=== PATIENT | male | born 1960 | race Caucasian/White ===

== ENCOUNTER 2022-07-19 11:50 | Observation (INO) | payer BC, MEDICARE ==
[2022-07-19] MEDS ORDERED: ONDANSETRON 4 MG/2 ML VIAL IVP STA (12:28)
[2022-07-19] MEDS ORDERED: SODIUM CHLORIDE 0.9% 1,000 ML IV STA (12:28)
[2022-07-19 13:00] LABS: Basophils # (A) 0.1 k/uL (0-0.2); Basophils % (A) 1 %; Eosinophils # (A) 0.1 k/uL (0-0.7); Eosinophils % (A) 1 %; HCT 44.5 % (39.0-53.0); HGB 14.6 gm/dL (13.0-17.5); Lymphocytes # (A) 1.2 k/uL (1.0-4.8); Lymphocytes % (A) 13 %; MCH 27.4 pg (25.0-35.0); MCHC 32.9 g/dL (31.0-37.0); MCV 83.3 fL (80.0-100.0); Monocytes # (A) 0.8 k/uL (0-1.0); Monocytes % (A) 9 %; Neutrophils # (A) 6.9 k/uL (1.3-7.7); Neutrophils % (A) 75 %; Platelet Count 324 k/uL (150-450); Poikilocytosis Slight; RBC 5.34 m/uL (4.30-5.90); RDW 15.3 % (11.5-15.5); WBC 9.1 k/uL (3.8-10.6)
[2022-07-19 13:15] LABS: Albumin 3.5 g/dL (3.5-5.0); Total Bilirubin 1.3 mg/dL (0.2-1.3); Total Protein 6.6 g/dL (6.3-8.2)
[2022-07-19 13:27] LABS: INR 1.2 (<1.2); Partial Thromboplastin Time 25.7 sec (22.0-30.0); Prothrombin Time 11.9 sec (9.0-12.0)
--- NOTE | 2022-07-19 13:38 | XR ---
EXAMINATION TYPE: XR chest 2V DATE OF EXAM: 07/19/2022 COMPARISON: NONE HISTORY: Abdominal pain TECHNIQUE: Frontal and lateral views of the chest are obtained. FINDINGS: The heart is mildly enlarged. There is no pulmonary vascular congestion. There is fullness of the right hilum. Lungs are clear. No pneumothorax. Degenerative changes of the spine without acut e osseous abnormalities. IMPRESSION: Fullness of the right hilum. Suggest CT chest for further evaluation.
--- NOTE | 2022-07-19 13:42 | ED ---
Abdominal Pain HPI - General Chief Complaint: Abdominal Pain Stated Complaint: weakness Time Seen by Provider: 07/19/22 12:10 Source: patient Mode of arrival: ambulatory Limitations: no limitations - History of Present Illness Initial Comments: 61-year-old male presents to the emergency department with bilateral flank pain, nausea and vomiting. Patient was at [facility] on the with similar complaints. Symptoms were present for 2 days. He also had urinary frequency and dark colored urine. Labs were conducted and patient had a cr eatinine of 1.3. Patient had no bacteria in his urine however a CT demonstrated concerning signs for cystitis. He was started on Rocephin patient was discharged home on Keflex and tramadol. He states that he awoke this morning and took one of the tramadol. Afterwards patient began having intense nausea with retching. He felt diaphoretic and had intense pain in his bilateral flanks. Patient felt confused. He called EMS who brought the patient into emergency department for further evaluation. There is concern for possible medication side effect. He denies any chest pain. Does admit to some shortness of breath. He has the bilateral flank pain. States that he is producing urine normally. No current hematuria. He does have chronic kidney disease and follows with a drosophere operator out of [facility]. No other alleviating, precipitating or modifying factors - Related Data Home Medications Medication Instructions Recorded Confirmed Atorvastatin [Lipitor] 40 mg PO DAILY 07/19/22 07/19/22 Cephalexin [Keflex] 500 mg PO QID 07/19/22 07/19/22 Clopidogrel [Plavix] 75 mg PO DAILY 07/19/22 07/19/22 Furosemide [Lasix] 40 mg PO DAILY 07/19/22 07/19/22 Insulin Aspart [NovoLOG Flexpen] 20 units SQ AC-TID 07/19/22 07/19/22 Insulin Glargine,Hum.rec.anlog 34 units SQ DAILY 07/19/22 07/19/22 [Lantus Solostar Pen] NIFEdipine [Adalat CC] 90 mg PO DAILY 07/19/22 07/19/22 lisinopriL [Zestril] 40 mg PO DAILY 07/19/22 07/19/22 Allergies Allergy/AdvReac Type Severity Reaction Status Date / Time erythromycin base AdvReac Nausea & Verified 07/19/22 12:53 Vomiting hydromorphone [From Dilaudid] AdvReac Nausea & Verified 07/19/22 12:53 Vomiting morphine AdvReac Nausea & Verified 07/19/22 12:53 Vomiting Review of Systems ROS Statement: Those systems with pertinent positive or pertinent negative responses have been documented in the HPI. ROS Other: All systems not noted in ROS Statement are negative. Past Medical History Past Medical History: Coronary Artery Disease (CAD), Heart Failure Past Surgical History: Heart Catheterization With Stent Past Psychological History: No Psychological Hx Reported Smoking Status: Never smoker Past Alcohol Use History: None Reported Past Drug Use History: None Reported General Exam Limitations: no limitations Course Vital Signs 07/19/22 07/19/22 07/19/22 13:12 17:00 17:25 Pulse Rate 74 Respiratory 18 18 Rate Blood Pressure 100/60 128/88 O2 Sat by Pulse 89 L 95 Oximetry 07/19/22 19:48 Pulse Rate 80 Respiratory 18 Rate Blood Pressure 125/86 O2 Sat by Pulse 96 Oximetry Medical Decision Making - Medical Decision Making Was pt. sent in by a medical professional or institution? @ -No Did you speak to anyone other than the patient for history? @ -MS Did you review nursing and triage notes? @ -I reviewed the patient's nursing notes and I agree Were old charts reviewed? @ -[outside hosp., previous admissions, EMS record, old EKG, old radiological studies, urgent care reports/EKGs, senior living records?] Differential Diagnosis? @ -[chest pain, altered mental status abdominal pain women, abdominal pain men, vaginal bleeding, weakness, fever, dyspnea, syncope, headache, dizziness, GI bleed, back pain, seizure] EKG interpreted by me (3pts min.)? @ -[none] X-rays interpreted by me (1pt min.)? @ -[none] CT interpreted by me (1pt min.)? @ -[none] U/S interpreted by me (1pt. min.)? @ -[none] What testing was considered but not performed? (CT, X-rays, U/S, labs)? Why? @ [CT, X-rays, U/S, labs? Why?] What meds were considered but not given? Why? @ -[none] Did you discuss the management of the patient with other professionals? @ -[professionals i.e. Dr, PA, ASSOCIATE EDITOR, Lab, RT, Psych Nurse, Assistant Professor Of Sociology, Geothermal Heat Pump Machinist, Teacher, Range Technician, dependency case manager? Give summary] Did you reconcile home meds? @ -[none] Was smoking cessation discussed for >3mins.? @ -[none] Was critical care preformed (if so, how long)? @ -[none] Were there social determinants of health that impacted care today? How? (Homelessness, low income, unemployed, alcoholism, drug addiction, transportation, low edu. Level, literacy, decrease access to med. care, detention, rehab)? @ -[Homelessness, low income, unemployed, alcoholism, drug addiction, transportation, low edu. Level, literacy, decrease access to med. care, detention, rehab?] Was there de-escalation of care discussed even if they declined? (Discuss DNR or withdrawal of care, Hospice)? @ -[Discuss DNR or withdrawal of care, Hospice?] What co-morbidities impacted this encounter? (DM, HTN, Smoking, COPD, CAD, Cancer, CVA, Hep., AIDS, mental health diagnosis, sleep apnea, morbid obesity)? @ -[DM, HTN, Smoking, COPD, CAD, Cancer, CVA, Hep., AIDS, mental health diagnosis, sleep apnea, morbid obesity?] Was patient admitted / discharged? Upon arrival patient was placed into room 8. History and physical exam was performed. IV access was established and the nivia ent was given a liter bolus of normal saline. He is given 4 mg of Zofran for nausea. Laboratory studies are conducted and reviewed. Lactic acid of 2.9. Creatinine is 1.37. This is at the patient's baseline. Urinalysis demonstrates no bacteria. CT is performed which demonstrates thickening of the bladder. Bilateral renal cysts. I did perform a chest x-ray due to the reported shortness of breath which demonstrates right hilar fullness. CT is performed which demonstrates ascending aortic aneurysm measuring 4.3 cm. Patient is made aware of the findings. I did feel that the patient was stable for discharge however he reports that he does not feel comfortable going home due to the extr chucho nature of his symptoms. He is requesting overnight observation. I did call and discuss the case with Dr. Mendiola. Does state that the patient is stable for discharge however if he is uncomfortable with symptoms they will obstipation overnight. I did inform the patient of this. He feels more comfortable saying hospitalized overnight. Informed him that he would be given IV fluids. Patient understood. Admission orders placed for the floor Undiagnosed new problem with uncertain prognosis? @ -[none] Drug Therapy requiring intensive monitoring for toxicity (Heparin, Nitro, Insulin, Cardizem)? @ -[none] Were any procedures done? @ -[none] Diagnosis/symptom? @ -[default] Acute, or Chronic, or Acute on Chronic? @ -[default] Uncomplicated (without systemic symptoms) or Complicated (systemic symptoms)? @ -[default] Side effects of treatment? @ -[none] Exacerbation, Progression, or Severe Exacerbation] @ -[no] Poses a threat to life or bodily function? @ -[no] - Lab Data Result diagrams: 07/19/22 12:53 07/19/22 12:53 Lab Results 07/19/22 07/19/22 07/19/22 Range/Units 12:53 12:53 12:53 WBC 9.1 (3.8-10.6) k/uL RBC 5.34 (4.30-5.90) m/uL Hgb 14.6 (13.0-17.5) gm/dL Hct 44.5 (39.0-53.0) % MCV 83.3 (80.0-100.0) fL MCH 27.4 (25.0-35.0) pg MCHC 32.9 (31.0-37.0) g/dL RDW 15.3 (11.5-15.5) % Plt Count 324 (150-450) k/uL MPV 9.0 Neutrophils % 75 % Lymphocytes % 13 % Monocytes % 9 % Eosinophils % 1 % Basophils % 1 % Neutrophils # 6.9 (1.3-7.7) k/uL Lymphocytes # 1.2 (1.0-4.8) k/uL Monocytes # 0.8 (0-1.0) k/uL Eosinophils # 0.1 (0-0.7) k/uL Basophils # 0.1 (0-0.2) k/uL Poikilocytosis Slight PT 11.9 (9.0-12.0) sec INR 1.2 H (<1.2) APTT 25.7 (22.0-30.0) sec Sodium 138 (137-145) mmol/L Potassium 3.0 L (3.5-5.1) mmol/L Chloride 101 (98-107) mmol/L Carbon Dioxide 29 (22-30) mmol/L Anion Gap 8 mmol/L BUN 16 (9-20) mg/dL Creatinine 1.37 H (0.66-1.25) mg/dL Est GFR (CKD-EPI)AfAm 64 (>60 ml/min/1.73 sqM) Est GFR (CKD-EPI)NonAf 55 (>60 ml/min/1.73 sqM) Glucose 134 H (74-99) mg/dL Lactic Ac Sepsis Rflx Plasma Lactic Acid Davin (0.7-2.0) mmol/L Calcium 8.0 L (8.4-10.2) mg/dL Total Bilirubin 1.3 (0.2-1.3) mg/dL AST 30 (17-59) U/L ALT 22 (4-49) U/L Alkaline Phosphatase 86 (38-126) U/L Troponin I (0.000-0.034) ng/mL Total Protein 6.6 (6.3-8.2) g/dL Albumin 3.5 (3.5-5.0) g/dL Lipase 70 (23-300) U/L 07/19/22 07/19/22 07/19/22 Range/Units 12:53 12:53 13:22 WBC (3.8-10.6) k/uL RBC (4.30-5.90) m/uL Hgb (13.0-17.5) gm/dL Hct (39.0-53.0) % MCV (80.0-100.0) fL MCH (25.0-35.0) pg MCHC (31.0-37.0) g/dL RDW (11.5-15.5) % Plt Count (150-450) k/uL MPV Neutrophils % % Lymphocytes % % Monocytes % % Eosinophils % % Basophils % % Neutrophils # (1.3-7.7) k/uL Lymphocytes # (1.0-4.8) k/uL Monocytes # (0-1.0) k/uL Eosinophils # (0-0.7) k/uL Basophils # (0-0.2) k/uL Poikilocytosis PT (9.0-12.0) sec INR (<1.2) APTT (22.0-30.0) sec Sodium (137-145) mmol/L Potassium (3.5-5.1) mmol/L Chloride (98-107) mmol/L Carbon Dioxide (22-30) mmol/L Anion Gap mmol/L BUN (9-20) mg/dL Creatinine (0.66-1.25) mg/dL Est GFR (CKD-EPI)AfAm (>60 ml/min/1.73 sqM) Est GFR (CKD-EPI)NonAf (>60 ml/min/1.73 sqM) Glucose (74-99) mg/dL Lactic Ac Sepsis Rflx Y Plasma Lactic Acid Davin 2.9 H* (0.7-2.0) mmol/L Calcium (8.4-10.2) mg/dL Total Bilirubin (0.2-1.3) mg/dL AST (17-59) U/L ALT (4-49) U/L Alkaline Phosphatase (38-126) U/L Troponin I 0.030 (0.000-0.034) ng/mL Total Protein (6.3-8.2) g/dL Albumin (3.5-5.0) g/dL Lipase (23-300) U/L - EKG Data EKG Comments: EKG demonstrates questionable A. fib with a rate of 84. QRS 183. QTC 469. There is a right bundle branch block. Baseline artifact Disposition Clinical Impression: Nausea and vomiting, Medication side effect, Flank pain Disposition: ADMITTED IP TO THIS [facility] Condition: Stable Is patient prescribed a controlled substance at d/c from ED?: No Time of Disposition: 16:51 Decision to Admit Reason: Admit from EC Decision Date: 07/19/22 Decision Time: 16:51
--- NOTE | 2022-07-19 14:12 | CT ---
EXAMINATION TYPE: CT abdomen pelvis wo con CT DLP: 1617.3 mGycm, Automated exposure control for dose reduction was used. DATE OF EXAM: 07/19/2022 1:47 PM COMPARISON: None CLINICAL INDICATION:Male, 61 years old with history of abdominal pain; Abdominal pain and weakness TECHNIQUE: Standard CT of the abdomen and pelvis without IV or oral contrast. Lack of IV or oral co ntrast limits evaluation of solid and hollow organ viscera. Coronal and sagittal reformats were perfo rmed. FINDINGS: LOWER CHEST: Posterior dependent subsegmental atelectasis is noted. Mild cardiomegaly. No pericardial effusion. Coronary arterial calcifications. ABDOMEN LIVER: Diffusely hypoattenuating parenchyma. GALLBLADDER AND BILE DUCTS: The gallbladder is surgically absent. No biliary ductal dilatation. PANCREAS: Unremarkable noncontrast appearance. SPLEEN: Unremarkable noncontrast appearance. ADRENAL GLANDS: Unremarkable noncontrast appearance.. KIDNEYS AND URETERS: No hydronephrosis or renal calculi. Bilateral renal cysts with largest in the ri ght kidney measuring up to 8.8 cm and largest in the left kidney measuring up to 6.2 cm. PELVIS BLADDER: Underdistended with wall thickening and surrounding fat stranding. REPRODUCTIVE: Unremarkable. ABDOMEN & PELVIS STOMACH AND BOWEL: Small hiatal hernia, duodenum is unremarkable. No focal wall thickening or surroun ding inflammatory changes. The appendix is not visualized however there is no significant inflammator y changes within the right lower quadrant. Distal colonic diverticulosis without evidence for acute d iverticulitis. No evidence of bowel obstruction. PERITONEUM: No evidence of pneumoperitoneum or free fluid. VASCULATURE: Mild atherosclerotic calcifications are present throughout the abdominal aorta and its b ranches. No evidence of aortic aneurysm. MUSCULOSKELETAL: No acute osseous abnormalities. Mild disc degeneration changes are present throughou t the thoracolumbar spine. LYMPH NODES: No gross evidence for lymphadenopathy. SOFT TISSUE/ABDOMINAL WALL: Left fat filled inguinal hernia. Hyperdense foci within the anterior abdo moisés wall subcutaneous tissues likely from medication injections. IMPRESSION: 1. Underdistended urinary bladder with wall thickening and surrounding inflammatory changes. Correlat e with urinalysis for cystitis. 2. Colonic diverticulosis without evidence for acute diverticulitis. 3. Bilateral renal cysts. 4. Hepatic steatosis.
[2022-07-19] MEDS ORDERED: POTASSIUM CHLORIDE ER 20 MEQ TAB.ER PO STA (14:21)
--- NOTE | 2022-07-19 15:30 | CT ---
EXAMINATION TYPE: CT chest wo con CT DLP: 875.1 mGycm, Automated exposure control for dose reduction was used. DATE OF EXAM: 07/19/2022 3:17 PM COMPARISON: . Chest radiograph from same day. CLINICAL INDICATION:Male, 61 years old with history of abnormal chest x-ray; PHH, abnormal chest xray TECHNIQUE: Multiple axial images were obtained through the chest without IV contrast. Lack of IV or o ral contrast limits evaluation of solid and hollow organ viscera. FINDINGS: LUNGS/ PLEURA: Bibasilar posterior dependence of subsegmental atelectasis. No focal consolidation, pn eumothorax, or pleural effusion. No suspicious pulmonary nodule or mass. AIRWAY: Patent and unremarkable.. HEART: Moderately enlarged. No pericardial effusion. Coronary artery calcifications and/or stents. MEDIASTINUM: No gross evidence of adenopathy. VASCULATURE: Ascending aortic aneurysm measuring up to 4.3 cm. Dilation of the main pulmonary artery measuring up to 4.6 cm consistent with pulmonary arterial hypertension. MUSCULOSKELETAL: Mild disc degeneration changes are present throughout the thoracolumbar spine. No ac ismael osseous abnormality. No aggressive osseous lesion. SOFT TISSUES/LYMPH NODES: Unremarkable. LOWER NECK: No significant findings. UPPER ABDOMEN: Please refer to dedicated CT abdomen and pelvis of same day for findings. IMPRESSION: 1. No acute thoracic process. 2. Ascending aortic aneurysm measuring up to 4.3 cm. 3. Moderate cardiomegaly. No pericardial effusion.
[2022-07-19] MEDS ORDERED: NALOXONE 0.4 MG/ML 1 ML VIAL IV PRN (16:52)
[2022-07-19] MEDS ORDERED: ONDANSETRON 4 MG/2 ML VIAL IVP PRN (16:52)
[2022-07-19] MEDS: SODIUM CHLORIDE 0.9% 1,000 ML IV SCH (18:34)
[2022-07-19 18:56] LABS: Amorphous Sediment,Urine Rare /hpf; Appearance,Urine Cloudy (Clear); Bilirubin,Urine Negative (Negative); Blood,Urine Negative (Negative); Color,Urine Yellow; Glucose,Urine (UA) Trace (Negative); Hyaline Casts,Urine 1 /lpf (0-2); Ketones,Urine Negative (Negative); Leukocyte Esterase,Urine Negative (Negative); Mucus,Urine Occasional /hpf; Nitrite,Urine Negative (Negative); Protein,Urine 2+ (Negative); RBC,Urine 2 /hpf (0-5); Specific Gravity,Urine 1.014 (1.001-1.035); Squamous Epithelial Cell,Urine 1 /hpf (0-4); Urobilinogen,Urine <2.0 mg/dL (<2.0); WBC,Urine 5 /hpf (0-5)
[2022-07-20] MEDS: SODIUM CHLORIDE 0.9% 1,000 ML IV SCH (01:25)
[2022-07-20 03:43] LABS: Glucose,Whole Blood 109 mg/dL (70-110)
[2022-07-20 03:48] VITALS: BP 148/99; PULSE 85
[2022-07-20 06:07] VITALS: RESP 16
[2022-07-20] MEDS ORDERED: NIFEdipine XL 90 MG TAB.ER.24 PO SCH (09:00)
[2022-07-20] MEDS ORDERED: CLOPIDOGREL 75 MG TAB PO SCH (09:00)
[2022-07-20] MEDS ORDERED: lisinopriL 20 MG TAB PO SCH (09:00)
[2022-07-20] MEDS ORDERED: FUROSEMIDE 40 MG TAB PO SCH (09:00)
[2022-07-20] MEDS ORDERED: ATORVASTATIN 40 MG TAB PO SCH (09:00)
[2022-07-20 10:03] LABS: Basophils # (A) 0.09 X 10*3/uL (0.00-0.10); Eosinophils % (A) 2.2 %; HCT 44.6 % (39.6-50.0); HGB 13.8 g/dL (13.0-17.0); Immature Grans, Automated 0.3 %; Lymphocytes # (A) 1.36 X 10*3/uL (0.90-5.00); Lymphocytes % (A) 15.2 %; MCHC 30.9 g/dL (32.0-37.0); MCV 87.1 fL (80.0-97.0); Mean Platelet Volume 11.2 fL (9.5-12.2); Monocytes # (A) 1.15 X 10*3/uL (0.20-1.00); Monocytes % (A) 12.8 %; NRBC Per 100 WBC 0 /100 WBCS (0.0-0.0); Neutrophils # (A) 6.12 X 10*3/uL (1.80-7.70); Neutrophils % (A) 68.5 %; Platelet Count 284 X 10*3/uL (140-440); RBC 5.12 X 10*6/uL (4.40-5.60); RDW 15.2 % (11.5-14.5); WBC 8.95 X 10*3/uL (4.50-10.00)
[2022-07-20 10:24] LABS: Anion Gap 14.4 mmol/L (10.00-18.00); BUN/Creat Ratio 11.93 Ratio (12.00-20.00); Blood Urea Nitrogen 17.9 mg/dL (9.0-27.0); Calcium 8.3 mg/dL (8.7-10.3); Carbon Dioxide 26.6 mmol/L (20.0-27.5); Non-African American GFR(CKD) 49.2 (60.0-200.0); Potassium 3.3 mmol/L (3.5-5.5)
[2022-07-20] MEDS ORDERED: INSULIN ASPART (NovoLOG) 100 UNIT/ML VIAL SQ SCH (12:30)
--- NOTE | 2022-07-20 15:46 | P.HPIM ---
History of Present Illness H&P Date: 07/20/22 Chief Complaint: Visual changes, abdominal pain 61-year-old man who recently was hospitalized for kidney stone which spontaneously passed, CAD, heart failure with unknown ejection fraction, hypertension, hyperlipidemia, diabetes presented with nausea, vomiting, bilateral flank pain, visual changes. Patient says that he was seen for similar symptoms and was prescribed antibiotics for cystitis after passing a kidney stone as well as tramadol when necessary for pain control. Patient says that yesterday when he took a dose of tramadol, he woke up 30 minutes after taking a nap and found that he had significant visual changes like "turquoise and Gold across his eyes". He also continue to have nausea, vomiting, bilateral flank pain. For this reason he came to the emergency room for further evaluation. He denies fevers, chills, nausea or chest pain, palpitations, syncope, presyncope, cough, dyspnea, abdominal pain, constipation, diarrhea, dysuria, numbness/weakness of extremities. In the emergency room, patient was afebrile, 128/88, heart rate 74, 89% on room air. CBC was unremarkable. Chemistries are unremarkable. UA showed 2+ protein, trace glucose, rare sediment, occasional mucus, otherwise unremarkable. CT of the abdomen/pelvis showed underdistended urinary bladder with wall thickening and surrounding inflammatory changes consistent with cystitis, colonic diverticulosis without inflammation. Chest CT showed no acute thoracic process, and ascending aortic aneurysm measuring 4.3 cm, moderate cardiomegaly without pericardial effusion. Chest x-ray showed fullness of the right hilum. EKG showed atrial fibrillation with right bundle branch block. Case was discussed with emergency room physician who felt the patient warranted observation for pain control. All Systems reviewed and pertinent positives and negatives noted in HPI, all other symptoms are negative Gen: in no apparent distress, resting comfortably in bed Eyes: PERRL, no scleral injection or icterus HENT: normocephalic, atraumatic, good hearing acuity, moist mucous membranes Neck: no tracheal deviation, full range of motion Resp: good air exchange, breathing comfortably with no accessory muscle use, no tactile fremitus, clear to auscultation bilaterally CVS: good distal perfusion x 4, no pitting edema, regular rate and rhythm without murmurs GI: soft, NTTP, ND, no hepatosplenomegaly : no suprapubic tenderness, no CVAT, queen catheter not present MSK: no clubbing, no cyanosis, no noted contractures of extremities Skin: no noted rashes, petechiae; temperature of skin is appropriate Neuro: moving all extremities without signs of weakness, CN II-XII intact Psych: cooperative, euthymic mood, insight and judgment intact Labs and imaging as above Assessment/plan: Cystitis Nausea and vomiting Bilateral flank pain Visual changes -Continue home antibiotics of cephalexin -Discontinue tramadol, likely side effect causing visual changes -Tylenol when necessary at home -Follow up with primary care provider Hypertension Hyperlipidemia Diabetes type 2 -Continue home medications She has full code DVT prophylaxis is deferred due to patient's observation status and ability to ambulate freely Past Medical History Past Medical History: Coronary Artery Disease (CAD), Heart Failure Past Surgical History: Heart Catheterization With Stent Past Psychological History: No Psychological Hx Reported Smoking Status: Never smoker Past Alcohol Use History: None Reported Past Drug Use History: None Reported Medications and Allergies Home Medications Medication Instructions Recorded Confirmed Type Atorvastatin [Lipitor] 40 mg PO DAILY 07/19/22 07/19/22 History Cephalexin [Keflex] 500 mg PO QID 07/19/22 07/19/22 History Clopidogrel [Plavix] 75 mg PO DAILY 07/19/22 07/19/22 History Furosemide [Lasix] 40 mg PO DAILY 07/19/22 07/19/22 History Insulin Aspart [NovoLOG Flexpen] 20 units SQ AC-TID 07/19/22 07/19/22 History Insulin Glargine,Hum.rec.anlog 34 units SQ DAILY 07/19/22 07/19/22 History [Lantus Solostar Pen] NIFEdipine [Adalat CC] 90 mg PO DAILY 07/19/22 07/19/22 History lisinopriL [Zestril] 40 mg PO DAILY 07/19/22 07/19/22 History Acetaminophen Tab [Tylenol Tab] 1,000 mg PO Q6HR #30 tablet 07/20/22 Rx Allergies Allergy/AdvReac Type Severity Reaction Status Date / Time erythromycin base AdvReac Nausea & Verified 07/19/22 12:53 Vomiting hydromorphone [From Dilaudid] AdvReac Nausea & Verified 07/19/22 12:53 Vomiting morphine AdvReac Nausea & Verified 07/19/22 12:53 Vomiting Physical Exam Osteopathic Statement: *. No significant issues noted on an osteopathic structural exam other than those noted in the History and Physical/Consult. Vitals: Vital Signs Pulse Resp BP Pulse Ox 07/20/22 06:00 16 94 L 07/20/22 05:30 148/99 90 L 07/20/22 05:00 148/99 86 L 07/20/22 04:30 148/99 91 L 07/20/22 04:00 148/99 87 L 07/20/22 03:47 85 14 148/99 97 07/20/22 03:30 125/86 07/20/22 03:00 125/86 07/20/22 02:30 125/86 07/20/22 02:00 125/86 07/20/22 01:30 125/86 07/20/22 01:00 125/86 07/20/22 00:30 125/86 07/20/22 00:00 125/86 07/19/22 23:30 125/86 07/19/22 23:26 86 18 125/86 95 07/19/22 23:00 125/86 07/19/22 22:30 125/86 07/19/22 22:00 125/86 07/19/22 21:30 125/86 07/19/22 21:00 125/86 07/19/22 20:30 125/86 07/19/22 20:00 125/86 07/19/22 19:48 80 18 125/86 96 07/19/22 19:30 125/86 07/19/22 19:00 128/88 07/19/22 18:30 128/88 07/19/22 18:00 128/88 07/19/22 17:30 128/88 07/19/22 17:25 95 07/19/22 17:00 74 18 128/88 89 L Results CBC & Chem 7: 07/20/22 05:22 07/20/22 05:22 Labs: Abnormal Lab Results - Last 24 Hours (Table) 07/19/22 07/20/22 07/20/22 Range/Units 18:39 05:22 05:22 MCHC 30.9 L (32.0-37.0) g/dL RDW 15.2 H (11.5-14.5) % Monocytes # 1.15 H (0.20-1.00) X 10*3/uL Potassium 3.3 L (3.5-5.5) mmol/L Est GFR (CKD-EPI)AfAm 57.0 L (60.0-200.0) Est GFR (CKD-EPI)NonAf 49.2 L (60.0-200.0) BUN/Creatinine Ratio 11.93 L (12.00-20.00) Ratio Glucose 121 H (70-110) mg/dL Calcium 8.3 L (8.7-10.3) mg/dL Urine Protein 2+ H (Negative) Urine Glucose (UA) Trace H (Negative) Amorphous Sediment Rare H (None) /hpf Urine Mucus Occasional H (None) /hpf
--- NOTE | 2022-07-20 16:36 | P.DS ---
Providers Date of admission: 07/19/22 16:52 Expected date of discharge: 07/20/22 Attending physician: Juve Mendiola MD Primary care physician: Physician Nonstaff Hospital Course: Cystitis Nausea and vomiting Bilateral flank pain Visual changes Hypertension Hyperlipidemia Diabetes type 2 61-year-old man who recently was hospitalized for kidney stone which spontaneously passed, CAD, heart failure with unknown ejection fraction, hyper tension, hyperlipidemia, diabetes presented with nausea, vomiting, bilateral flank pain, visual changes. In the emergency room, patient was afebrile, 128/88, heart rate 74, 89% on room air. CBC was unremarkable. Chemistries are unremarkable. UA showed 2+ protein, trace glucose, rare sediment, occasional mucus, otherwise unremarkable. CT of the abdomen/pelvis showed underdistended urinary bladder with wall thickening and surrounding inflammatory changes consistent with cystitis, colonic diverticulosis without inflammation. Chest CT showed no acute thoracic process, and ascending aortic aneurysm measuring 4.3 cm, moderate cardiomegaly without pericardial effusion. Chest x-ray showed fullness of the right hilum. EKG showed atrial fibrillation with right bundle branch block. Case was discussed with emergency room physician who felt the patient warranted observation for pain control. Patient was doing well at the time of my evaluation. He requested discharge home. I advised that he discontinue tramadol because this was likely causing his side effect of visual changes. I advised him total dosing of Tylenol per day to be 4 g split into 4 doses every 6 hours for a total of 7 days, then 2 g total per day split into 4 doses every 6 hours as needed for pain control. Patient will follow-up with primary care doctor. Gen: in no apparent distress, resting comfortably in bed Eyes: PERRL, no scleral injection or icterus HENT: normocephalic, atraumatic, good hearing acuity, moist mucous membranes Neck: no tracheal deviation, full range of motion Resp: good air exchange, breathing comfortably with no accessory muscle use, no tactile fremitus, clear to auscultation bilaterally CVS: good distal perfusion x 4, no pitting edema, regular rate and rhythm without murmurs GI: soft, NTTP, ND, no hepatosplenomegaly : no suprapubic tenderness, no CVAT, queen catheter not present MSK: no clubbing, no cyanosis, no noted contractures of extremities Skin: no noted rashes, petechiae; temperature of skin is appropriate Neuro: moving all extremities without signs of weakness, CN II-XII intact Psych: cooperative, euthymic mood, insight and judgment intact Patient Condition at Discharge: Good Plan - Discharge Summary New Discharge Prescriptions: New Acetaminophen Tab [Tylenol Tab] 1,000 mg PO Q6HR #30 tablet Continue NIFEdipine [Adalat CC] 90 mg PO DAILY Clopidogrel [Plavix] 75 mg PO DAILY Atorvastatin [Lipitor] 40 mg PO DAILY Insulin Aspart [NovoLOG Flexpen] 20 units SQ AC-TID Insulin Glargine,Hum.rec.anlog [Lantus Solostar Pen] 34 units SQ DAILY lisinopriL [Zestril] 40 mg PO DAILY Furosemide [Lasix] 40 mg PO DAILY Cephalexin [Keflex] 500 mg PO QID Discharge Medication List Atorvastatin [Lipitor] 40 mg PO DAILY 07/19/22 [History] Cephalexin [Keflex] 500 mg PO QID 07/19/22 [History] Clopidogrel [Plavix] 75 mg PO DAILY 07/19/22 [History] Furosemide [Lasix] 40 mg PO DAILY 07/19/22 [History] Insulin Aspart [NovoLOG Flexpen] 20 units SQ AC-TID 07/19/22 [History] Insulin Glargine,Hum.rec.anlog [Lantus Solostar Pen] 34 units SQ DAILY 07/19/22 [History] NIFEdipine [Adalat CC] 90 mg PO DAILY 07/19/22 [History] lisinopriL [Zestril] 40 mg PO DAILY 07/19/22 [History] Acetaminophen Tab [Tylenol Tab] 1,000 mg PO Q6HR #30 tablet 07/20/22 [Rx] Follow up Appointment(s)/Referral(s): Nonstaff,Physician [Primary Care Provider] - 1-2 days Patient Instructions/Handouts: Acute Abdominal Pain (ED) Activity/Diet/Wound Care/Special Instructions: As discussed, you can use Tylenol 1000mg four times daily as needed for pain for up to one week, after that, you can use 500mg four times daily as needed for pain Discontinue use of tramadol, continue and complete course of cephalexin Discharge Disposition: HOME SELF-CARE
== END 2022-07-20 10:54 | disposition home or self-care (01) ==
LOC: EC 11:50 → 6NMEDSUR 16:52
PROVIDERS: ADMIT Student in an Organized Health Care Education/Training Program; ATTEND Student in an Organized Health Care Education/Training Program
DX: N30.90 Cystitis, unspecified without hematuria (principal); R11.2 Nausea with vomiting, unspecified; I13.0 Hypertensive heart and chronic kidney disease with heart failure and stage 1 through stage 4 chronic kidney disease, or unspecified chronic kidney disease; N18.9 Chronic kidney disease, unspecified; I50.9 Heart failure, unspecified; I25.10 Atherosclerotic heart disease of native coronary artery without angina pectoris; E78.5 Hyperlipidemia, unspecified; E11.22 Type 2 diabetes mellitus with diabetic chronic kidney disease; Z95.5 Presence of coronary angioplasty implant and graft; Z79.4 Long term (current) use of insulin; Z79.02 Long term (current) use of antithrombotics/antiplatelets; Z79.899 Other long term (current) drug therapy; Z88.1 Allergy status to other antibiotic agents; Z88.5 Allergy status to narcotic agent; Z88.6 Allergy status to analgesic agent
CPT/HCPCS: 96361 ×2; 96374; 99285; 36415; 93005; 80053; 80048; 83605; 83690; 84484; 85025 ×2; 85610; 85730; 81001; 71046; 71250; 74176; G0378 ×3; J2405

== ENCOUNTER 2023-10-25 23:27 | Inpatient (IN) | payer MEDICARE ==
--- NOTE | 2023-10-25 23:45 | ED ---
General Adult HPI <SethRomie - Last Filed: 10/25/23 23:46> <Gene Arellano - Last Filed: 10/26/23 05:54> - General Stated complaint: Abdominal Swelling, CHF, Chronic Kidney Disease Time Seen by Provider: 10/25/23 23:39 - History of Present Illness Initial comments: 63-year-old male with past medical history significant for CHF presenting to the ED with complaints of dyspnea. Patient reports over the past week has had increasing generalized swelling of his lower extremity progressively working its way up to his abdomen. Now reports over the past few days has had dyspnea especially with exertion. Denies chest pain. (Romie Ann) Patient is a 63-year-old male who presents emergency department for increased shortness of breath, lower extremity swelling, abdominal swelling. Has been ongoing for multiple weeks. Has a history of CAD and heart failure. Has been compliant with medications. Presents for further evaluation at this time. Denies any significant productive cough. Does endorse lower extremity swelling as well as the swelling of his abdomen. Denies nausea or vomiting or diarrhea. No abdominal pain. Does not endorse significant orthopnea. Denies any PND. Resents for further evaluation at this time. Endorses exertional dyspnea. Originally evaluated as a quick note. I evaluated him when he was placed in a room. (Gene Arellano) - Related Data Home Medications Medication Instructions Recorded Confirmed Atorvastatin [Lipitor] 40 mg PO DAILY 07/19/22 07/19/22 Cephalexin [Keflex] 500 mg PO QID 07/19/22 07/19/22 Clopidogrel [Plavix] 75 mg PO DAILY 07/19/22 07/19/22 Furosemide [Lasix] 40 mg PO DAILY 07/19/22 07/19/22 Insulin Aspart [NovoLOG Flexpen] 20 units SQ AC-TID 07/19/22 07/19/22 Insulin Glargine,Hum.rec.anlog 34 units SQ DAILY 07/19/22 07/19/22 [Lantus Solostar Pen] NIFEdipine [Adalat CC] 90 mg PO DAILY 07/19/22 07/19/22 lisinopriL [Zestril] 40 mg PO DAILY 07/19/22 07/19/22 Previous Rx's Medication Instructions Recorded Acetaminophen Tab [Tylenol Tab] 1,000 mg PO Q6HR #30 tablet 07/20/22 Allergies Allergy/AdvReac Type Severity Reaction Status Date / Time tramadol Allergy Hallucinati Verified 10/26/23 00:30 ons erythromycin base AdvReac Nausea & Verified 10/26/23 00:30 Vomiting hydromorphone [From Dilaudid] AdvReac Nausea & Verified 10/26/23 00:30 Vomiting morphine AdvReac Nausea & Verified 10/26/23 00:30 Vomiting Review of Systems ROS Other: All systems not noted in ROS Statement are negative. <Romie Ann - Last Filed: 10/25/23 23:46> ROS Other: All systems not noted in ROS Statement are negative. <Gene Arellano - Last Filed: 10/26/23 05:54> ROS Statement: Those systems with pertinent positive or pertinent negative responses have been documented in the HPI. Review of Systems: CONST: Denies fever EYES: Denies blurry vision ENT: Denies nasal congestion C/V: Denies Chest pain RESP: Endorses shortness of breath GI: Denies abdominal pain : Denies dysuria SKIN: Denies rash. MSK: Denies joint pain. NEURO: Denies headache (Gene Arellano) Past Medical History Past Medical History: Coronary Artery Disease (CAD), Heart Failure Past Surgical History: Heart Catheterization With Stent Past Psychological History: No Psychological Hx Reported Smoking Status: Never smoker Past Alcohol Use History: None Reported Past Drug Use History: None Reported <Romie Ann - Last Filed: 10/25/23 23:46> General Exam <Romie Ann - Last Filed: 10/25/23 23:46> <Gene Arellano - Last Filed: 10/26/23 05:54> - General Exam Comments Initial Comments: Visual Physical Exam Vital signs reviewed General: Well-appearing, nontoxic, no acute distress. Head: Normocephalic, atraumatic Eyes: PERRLA, EOMI ENT: Airway patent Chest: Nonlabored breathing Skin: No visual rash, normal skin tone Neuro: Alert and oriented 3 Musculoskeletal: No gross abnormalities (Romie Ann) General: Appears in no acute distress. HEAD: Normal with no signs of head trauma. EYES: PERRLA, EOMI, conjunctiva normal, no discharge. ENT: Hearing grossly intact, normal oropharynx. RESPIRATORY: Coarse breath sounds at the lung bases. No hypoxia that is significant. No significant increased work of breathing. No wheezing. C/V: Irregular r rate and rhythm. S1 and S2 auscultated, significant symmetrical bilateral pitting edema of the legs, peripheral pulses 2+ and intact throughout ABD: Abd is soft, nontender, nondistended EXT: Normal range of motion, no obvious deformity SKIN: No rashes or lesions observed on exposed skin. NEURO: Alert and oriented x 4. (Gene Arellano) Course Vital Signs 10/26/23 10/26/23 10/26/23 00:24 02:01 02:11 Temperature 97.6 F Pulse Rate 78 87 Respiratory 20 20 21 Rate Blood Pressure 141/95 151/97 O2 Sat by Pulse 92 L 94 L Oximetry 10/26/23 03:59 Temperature Pulse Rate 87 Respiratory 19 Rate Blood Pressure 120/98 O2 Sat by Pulse 91 L Oximetry Medical Decision Making <Romie Ann - Last Filed: 10/25/23 23:46> - Lab Data Result diagrams: 10/26/23 01:00 10/26/23 01:00 - EKG Data -: EKG Interpreted by Me <Gene Arellano - Last Filed: 10/26/23 05:54> - Medical Decision Making Quicknote portion performed. Signed Romie Ann PA-C (Romie Ann) Was pt. sent in by a medical professional or institution ([facility], [facility], urgent care, hospital, or long term...) When possible be specific @ -No Did you speak to anyone other than the patient for history (EMS, parent, family, police, friend...)? What history was obtained from this source @ -No Did you review nursing and triage notes (agree or disagree)? Why? @ -I reviewed and agree with nursing and triage notes Were old charts reviewed (outside hosp., previous admission, EMS record, old EKG, old radiological studies, urgent care reports/EKG's, long term records)? Report findings @ -Old charts reviewed Differential Diagnosis (chest pain, altered mental status, abdominal pain women, abdominal pain men, vaginal bleeding, weakness, fever, dyspnea, syncope, headache, dizziness, GI bleed, back pain, seizure, CVA, palpatations, mental health, musculoskeletal)? @ -Differential Dyspnea: Coronary syndrome, arrhythmia, tamponade, asthma, COPD, pulmonary embolism, pneumonia, pneumothorax, pulmonary effusion, anaphylaxis, diabetic ketoacidosis, flailed chest, pulmonary contusion, diaphragmatic rupture, anemia, neuromuscular, this is not meant to be an all-inclusive list. EKG interpreted by me (3pts min.). @ -As above X-rays interpreted by me (1pt min.). @ -Chest x-ray shows no significant cardiopulmonary process. CT interpreted by me (1pt min.). @ -None done U/S interpreted by me (1pt. min.). @ -None done What testing was considered but not performed or refused? (CT, X-rays, U/S, labs)? Why? @ -None What meds were considered but not given or refused? Why? @ -None Did you discuss the management of the patient with other professionals (professionals i.e. , PA, [facility], lab, RT, psych nurse, social insurance specialist, lawyer real estate, teacher, seismology technical officer, casework supervisor)? Give summary @ -Discussed with midlevel provider, Riddhi who accepted the admission. Was smoking cessation discussed for >3mins.? @ -No Was critical care preformed (if so, how long)? @ -No Were there social determinants of health that impacted care today? How? (Homelessness, low income, unemployed, alcoholism, drug addiction, tra nsportation, low edu. Level, literacy, decrease access to med. care, fpc, rehab)? @ -No Was there de-escalation of care discussed even if they declined (Discuss DNR or withdrawal of care, Hospice)? DNR status @ -No What co-morbidities impacted this encounter? (DM, HTN, Smoking, COPD, CAD, Cancer, CVA, ARF, Chemo, Hep., AIDS, mental health diagnosis, sleep apnea, morbid obesity)? @ -CHF Was patient admitted / discharged? Hospital course, mention meds given and route, prescriptions, significant lab abnormalities, going to OR and other pertinent info. @ -Based on patient's presentation and physical exam, presents with lower extremity swelling as well as shortness of breath. Seems to be CHF exacerbation. Originally seen and worked up as a quick note. I evaluated him as he was placed in a room. Laboratory studies remarkable for hypokalemia 3.1 which will be replenished as well as hypomagnesemia of 1.5 which will be replenished. Troponin indeterminate. BNP is elevated to 3700. Patient has clinical CHF symptoms. EKG shows no signs of acute ischemia but does show atrial fibrillation. Patient was unaware of this but looking back at prior EKG from June 2022, seems to be a chronic issue. He is not on blood thinners. We will not start the patient on blood thinners at this time but will have cardiology evaluate the patient, As he seems to have not been on blood thinners despite Struve atrial fibrillation. He was in agreement this plan. Vital signs are within acceptable limits. He was started on IV Lasix as well as echo was ordered. Cardiology consulted. Patient admitted to [facility]. I spoke with NOREEN Rodriguez who accepted the admission. Undiagnosed new problem with uncertain prognosis? @ -No Drug Therapy requiring intensive monitoring for toxicity (Heparin, Nitro, Insulin, Cardizem)? @ -No Were any procedures done? @ -No Diagnosis/symptom? @ -CHF exacerbation, atrial fibrillation Acute, or Chronic, or Acute on Chronic? @ -Acute Uncomplicated (without systemic symptoms) or Complicated (systemic symptoms)? @ -Complicated Side effects of treatment? @ -No Exacerbation, Progression, or Severe Exacerbation? @ -No Poses a threat to life or bodily function? How? (Chest pain, [place], NE, pneumonia, PE, COPD, DKA, ARF, appy, cholecystitis, CVA, Diverticulitis, Homicidal, Suicidal, threat to staff... and all critical care pts) @ -Yes (Gene Arellano) - Lab Data Lab Results 10/26/23 10/26/23 10/26/23 Range/Units 01:00 01:00 01:00 WBC 8.1 (3.8-10.6) k/uL RBC 5.73 (4.30-5.90) m/uL Hgb 15.4 (13.0-17.5) gm/dL Hct 49.6 (39.0-53.0) % MCV 86.5 (80.0-100.0) fL MCH 26.8 (25.0-35.0) pg MCHC 31.0 (31.0-37.0) g/dL RDW 17.3 H (11.5-15.5) % Plt Count 248 (150-450) k/uL MPV 9.0 Neutrophils % 71 % Lymphocytes % 14 % Monocytes % 9 % Eosinophils % 3 % Basophils % 1 % Neutrophils # 5.7 (1.3-7.7) k/uL Lymphocytes # 1.1 (1.0-4.8) k/uL Monocytes # 0.7 (0-1.0) k/uL Eosinophils # 0.3 (0-0.7) k/uL Basophils # 0.1 (0-0.2) k/uL Anisocytosis Slight PT 13.7 H (10.0-12.5) sec INR 1.3 H (<1.2) APTT 27.9 (22.0-30.0) sec Sodium 142 (137-145) mmol/L Potassium 3.1 L (3.5-5.1) mmol/L Chloride 105 (98-107) mmol/L Carbon Dioxide 26 (22-30) mmol/L Anion Gap 11 mmol/L BUN 16 (9-20) mg/dL Creatinine 1.08 (0.66-1.25) mg/dL Est GFR (CKD-EPI)AfAm 83 (>60 ml/min/1.73 sqM) Est GFR (CKD-EPI)NonAf 72 (>60 ml/min/1.73 sqM) Glucose 91 (74-99) mg/dL Calcium 9.1 (8.4-10.2) mg/dL Magnesium 1.5 L (1.6-2.3) mg/dL Total Bilirubin 1.7 H (0.2-1.3) mg/dL AST 28 (17-59) U/L ALT 15 (4-49) U/L Alkaline Phosphatase 146 H (38-126) U/L Troponin I (0.000-0.034) ng/mL NT-Pro-B Natriuret Pep 3740 pg/mL Total Protein 7.5 (6.3-8.2) g/dL Albumin 4.1 (3.5-5.0) g/dL Urine Color Urine Appearance (Clear) Urine pH (5.0-8.0) Ur Specific [place] (1.001-1.035) Urine Protein (Negative) Urine Glucose (UA) (Negative) Urine Ketones (Negative) Urine Blood (Negative) Urine Nitrite (Negative) Urine Bilirubin (Negative) Urine Urobilinogen (<2.0) mg/dL Ur Leukocyte Esterase (Negative) Urine RBC (0-5) /hpf Urine WBC (0-5) /hpf Calcium Oxalate Crystal (None) /hpf Amorphous Sediment (None) /hpf Hyaline Casts (0-2) /lpf Urine Mucus (None) /hpf 10/26/23 10/26/23 Range/Units 01:00 02:00 WBC (3.8-10.6) k/uL RBC (4.30-5.90) m/uL Hgb (13.0-17.5) gm/dL Hct (39.0-53.0) % MCV (80.0-100.0) fL MCH (25.0-35.0) pg MCHC (31.0-37.0) g/dL RDW (11.5-15.5) % Plt Count (150-450) k/uL MPV Neutrophils % % Lymphocytes % % Monocytes % % Eosinophils % % Basophils % % Neutrophils # (1.3-7.7) k/uL Lymphocytes # (1.0-4.8) k/uL Monocytes # (0-1.0) k/uL Eosinophils # (0-0.7) k/uL Basophils # (0-0.2) k/uL Anisocytosis PT (10.0-12.5) sec INR (<1.2) APTT (22.0-30.0) sec Sodium (137-145) mmol/L Potassium (3.5-5.1) mmol/L Chloride (98-107) mmol/L Carbon Dioxide (22-30) mmol/L Anion Gap mmol/L BUN (9-20) mg/dL Creatinine (0.66-1.25) mg/dL Est GFR (CKD-EPI)AfAm (>60 ml/min/1.73 sqM) Est GFR (CKD-EPI)NonAf (>60 ml/min/1.73 sqM) Glucose (74-99) mg/dL Calcium (8.4-10.2) mg/dL Magnesium (1.6-2.3) mg/dL Total Bilirubin (0.2-1.3) mg/dL AST (17-59) U/L ALT (4-49) U/L Alkaline Phosphatase (38-126) U/L Troponin I 0.019 (0.000-0.034) ng/mL NT-Pro-B Natriuret Pep pg/mL Total Protein (6.3-8.2) g/dL Albumin (3.5-5.0) g/dL Urine Color Yellow Urine Appearance Clear (Clear) Urine pH 5.5 (5.0-8.0) Ur Specific [place] 1.018 (1.001-1.035) Urine Protein 2+ H (Negative) Urine Glucose (UA) Negative (Negative) Urine Ketones Negative (Negative) Urine Blood Negative (Negative) Urine Nitrite Negative (Negative) Urine Bilirubin Negative (Negative) Urine Urobilinogen <2.0 (<2.0) mg/dL Ur Leukocyte Esterase Negative (Negative) Urine RBC 1 (0-5) /hpf Urine WBC 2 (0-5) /hpf Calcium Oxalate Crystal Occasional H (None) /hpf Amorphous Sediment Occasional H (None) /hpf Hyaline Casts 98 H (0-2) /lpf Urine Mucus Occasional H (None) /hpf - EKG Data EKG Comments: 12-lead Electrocardiogram Interpretation Note EKG was reviewed and interpreted by myself. 12-lead ECG performed at 0042 is interpreted by me as revealing atrial fibrillation with a right bundle branch block at a rate of 86 beats per minute. Supai is normal. QRS duration is 179 ms, QTc is 496 ms.. There were no ST or T wave abnormalities to suggest myocardial ischemia or injury. R wave progression across the precordium was satisfactory. By my interpretation this EKG is non-diagnostic for acute ischemia.. Compared with prior EKGs which reveals no significant change. 12-lead Electrocardiogram Interpretation Note EKG was reviewed and interpreted by myself. 12-lead ECG performed at 0227 is interpreted by me as revealing atrial fibrillation with right bundle branch block at a rate of 79 beats per minute. Supai is normal. QRS duration is 185 ms, QTc is 496 ms. There were no ST or T wave abnormalities to suggest myocar dial ischemia or injury. R wave progression across the precordium was satisfactory. By my interpretation this EKG is non-diagnostic for acute ischemia. (Gene Arellano) Disposition <Romie Ann - Last Filed: 10/25/23 23:46> Time of Disposition: 02:46 <Gene Arellano - Last Filed: 10/26/23 05:54> Clinical Impression: Congestive heart failure, Atrial fibrillation Disposition: ADMITTED IP TO THIS HOSP Condition: Stable
[2023-10-26 01:16] LABS: Anisocytosis Slight; Basophils # (A) 0.1 k/uL (0-0.2); Basophils % (A) 1 %; Eosinophils # (A) 0.3 k/uL (0-0.7); Eosinophils % (A) 3 %; HCT 49.6 % (39.0-53.0); HGB 15.4 gm/dL (13.0-17.5); Lymphocytes # (A) 1.1 k/uL (1.0-4.8); Lymphocytes % (A) 14 %; MCH 26.8 pg (25.0-35.0); MCV 86.5 fL (80.0-100.0); Monocytes # (A) 0.7 k/uL (0-1.0); Monocytes % (A) 9 %; Neutrophils # (A) 5.7 k/uL (1.3-7.7); Neutrophils % (A) 71 %; Platelet Count 248 k/uL (150-450); RBC 5.73 m/uL (4.30-5.90); RDW 17.3 % (11.5-15.5); WBC 8.1 k/uL (3.8-10.6)
[2023-10-26 01:27] LABS: INR 1.3 (<1.2); Partial Thromboplastin Time 27.9 sec (22.0-30.0); Prothrombin Time 13.7 sec (10.0-12.5)
[2023-10-26 01:29] LABS: ALT 15 U/L (4-49); AST 28 U/L (17-59); African American GFR (CKD) 83 (>60 ml/min/1.73 sqM); Albumin 4.1 g/dL (3.5-5.0); Alkaline Phosphatase 146 U/L (38-126); Anion Gap 11 mmol/L; Blood Urea Nitrogen 16 mg/dL (9-20); Calcium 9.1 mg/dL (8.4-10.2); Carbon Dioxide 26 mmol/L (22-30); Chloride 105 mmol/L (98-107); Glucose 91 mg/dL (74-99); Magnesium 1.5 mg/dL (1.6-2.3); Non-African American GFR(CKD) 72 (>60 ml/min/1.73 sqM); Potassium 3.1 mmol/L (3.5-5.1); Sodium 142 mmol/L (137-145); Total Bilirubin 1.7 mg/dL (0.2-1.3); Total Protein 7.5 g/dL (6.3-8.2)
--- NOTE | 2023-10-26 01:31 | XR ---
ADDENDUM - Added by Qian Trent MD on 10/26/2023 1:32 AM (-07:00) FINDINGS: Lungs: No consolidation or mass. Pleural space: Possible trace right effusion. Heart: cardiomegaly. Bones/joints: No acute findings. IMPRESSION: Possible trace right effusion. EXAM: XR Chest, 2 Views CLINICAL HISTORY: ITS.REASON XR Reason: hx chf dyspnea TECHNIQUE: Frontal and lateral views of the chest. COMPARISON: No relevant prior studies available. FINDINGS: Lungs: No consolidation or mass. Pleural space: No effusion. Heart: cardiomegaly. Bones/joints: No acute findings. IMPRESSION: No acute cardiopulmonary process.
[2023-10-26 01:37] LABS: NT-Pro-B-Type Natriuretic Pept 3740 pg/mL
[2023-10-26] MEDS: POTASSIUM CHLORIDE ER 20 MEQ TAB.ER PO STA (02:44)
[2023-10-26] MEDS: ASPIRIN 81 MG PO STA (02:44)
[2023-10-26] MEDS: MAGNESIUM SULFATE-D5W PMX 1 GM in DEXTROSE/WATER 1 100ML.BAG IVPB ONE (02:45)
[2023-10-26] MEDS: FUROSEMIDE 10 MG/ML 4 ML VIAL IV STA (02:45)
[2023-10-26] MEDS ORDERED: NALOXONE 0.4 MG/ML 1 ML VIAL IV PRN (02:45)
[2023-10-26] MEDS ORDERED: ONDANSETRON 4 MG/2 ML VIAL IVP PRN (02:45)
[2023-10-26 03:12] LABS: Amorphous Sediment,Urine Occasional /hpf; Appearance,Urine Clear (Clear); Bilirubin,Urine Negative (Negative); Blood,Urine Negative (Negative); Calcium Oxalate Crystals,Urine Occasional /hpf; Color,Urine Yellow; Glucose,Urine (UA) Negative (Negative); Hyaline Casts,Urine 98 /lpf (0-2); Ketones,Urine Negative (Negative); Leukocyte Esterase,Urine Negative (Negative); Mucus,Urine Occasional /hpf; Nitrite,Urine Negative (Negative); PH, Urine 5.5 (5.0-8.0); Protein,Urine 2+ (Negative); RBC,Urine 1 /hpf (0-5); Specific Gravity,Urine 1.018 (1.001-1.035); Urobilinogen,Urine <2.0 mg/dL (<2.0); WBC,Urine 2 /hpf (0-5)
[2023-10-26 07:18] LABS: Glucose,Whole Blood 73 mg/dL (70-110)
--- NOTE | 2023-10-26 08:32 | P.HPIM ---
History of Present Illness This is a pleasant 63 years old male with past medical history of multiple medical problems as below including history of coronary artery disease s/p 4 stents. His PCP is Dr. rodriguez , also home about 1 week ago and given some antibiotic for his congested nose but with no much relief. Patient presents because of increased leg swelling in both legs over more than a week and he thinks is because to his abdomen which looks hard. Is been complaining from shortness of breath with walking, however no orthopnea or paroxysmal nocturnal dyspnea He denies chest pain but complains from little cough and phlegm and congested nose with sneezing but no sore throat for also more than a week Patient denies change in urine or bowel habits, he has little Headache but no weakness or numbness Patient denies smoking alcohol or illicit drugs. He is hemodynamically stable. He has unremarkable CBC, BMP, liver enzymes except for mild hypokalemia and hypomagnesemia INR 1.3 Troponin -0.09 and 0.0 24 Urinalysis negative EKG showing atrial fibrillation with a rate of 86 Chest x-ray is negative proBNP is elevated 3740 Patient started on IV Lasix twice daily Review of Systems Review of systems CONSTITUTIONAL: No fever, no malaise, no fatigue. HEENT: No recent visual problems or hearing problems. Denied any sore throat. CARDIOVASCULAR: No orthopnea, PND, no palpitations, no syncope. PULMONARY: No shortness of breath, no cough, no hemoptysis. GASTROINTESTINAL: No diarrhea, no nausea, no vomiting, no abdominal pain. Normoactive bowel sounds. NEUROLOGICAL: No headaches, no weakness, no numbness. HEMATOLOGICAL: Denies any bleeding or petechiae. GENITOURINARY: Denies any burning micturition, frequency, or urgency. MUSCULOSKELETAL/RHEUMATOLOGICAL: Denies any joint pain, swelling, or any muscle pain. ENDOCRINE: Denies any polyuria or polydipsia. Past Medical History Past Medical History: Coronary Artery Disease (CAD), Heart Failure Past Surgical History: Heart Catheterization With Stent Past Psychological History: No Psychological Hx Reported Smoking Status: Never smoker Past Alcohol Use History: None Reported Past Drug Use History: None Reported Medications and Allergies Home Medications Medication Instructions Recorded Confirmed Type Atorvastatin [Lipitor] 40 mg PO DAILY 07/19/22 10/26/23 History Clopidogrel [Plavix] 75 mg PO DAILY 07/19/22 10/26/23 History Furosemide [Lasix] 40 mg PO DAILY 07/19/22 10/26/23 History Insulin Aspart [NovoLOG Flexpen] 20 units SQ AC-TID 07/19/22 10/26/23 History NIFEdipine [Adalat CC] 90 mg PO DAILY 07/19/22 10/26/23 History lisinopriL [Zestril] 40 mg PO DAILY 07/19/22 10/26/23 History Aspirin EC [Ecotrin Low Dose] 81 mg PO DAILY 10/26/23 10/26/23 History Ergocalciferol [Vitamin D2 (1250 1,250 mcg PO MO 10/26/23 10/26/23 History Mcg = 12638 Iu)] Insulin Glargine,Hum.rec.anlog 20 unit SQ DAILY 10/26/23 10/26/23 History [Basaglar Kwikpen U-100] Potassium Chloride ER [K-Dur 10] 10 meq PO DAILY 10/26/23 10/26/23 History Thiamine [Vitamin B-1] 100 mg PO DAILY 10/26/23 10/26/23 History Allergies Allergy/AdvReac Type Severity Reaction Status Date / Time erythromycin base AdvReac Nausea & Verified 10/26/23 07:44 Vomiting hydromorphone [From Dilaudid] AdvReac Nausea & Verified 10/26/23 07:44 Vomiting morphine AdvReac Nausea & Verified 10/26/23 07:44 Vomiting tramadol AdvReac Hallucinati Verified 10/26/23 07:44 ons Physical Exam Vitals: Vital Signs Temp Pulse Resp BP Pulse Ox 10/26/23 07:10 76 20 156/104 95 10/26/23 03:59 87 19 120/98 91 L 10/26/23 02:11 21 10/26/23 02:01 87 20 151/97 94 L 10/26/23 00:24 97.6 F 78 20 141/95 92 L Intake and Output 10/25/23 10/26/23 10/26/23 22:59 06:59 14:59 Intake Total 100 Output Total 1200 700 Balance -1100 -700 Intake: Intake, IV Titration 100 Amount Magnesium Sulfate-D5w Pmx 100 1 gm In Dextrose/Water 1 100ml.bag @ 100 mls/hr IVPB ONCE ONE Rx#: [id number] Output: Urine 1200 700 Other: # Voids 1 1 Weight 129.274 kg GENERAL: The patient is alert and oriented x3, not in any acute distress. Well developed, well nourished. HEENT: Pupils are round and equally reacting to light. EOMI. No scleral icterus. No conjunctival pallor. Normocephalic, atraumatic. No pharyngeal erythema. No thyromegaly. CARDIOVASCULAR: S1 and S2 present. No murmurs, rubs, or gallops. PULMONARY: Chest is clear to auscultation, no wheezing , no crackles. ABDOMEN: Soft, nontender, nondistended, normoactive bowel sounds. No palpable organomegaly. MUSCULOSKELETAL: No joint swelling or deformity. -EXTREMITIES: No cyanosis, clubbing, . 3+ bilateral pitting leg edema. NEUROLOGICAL: Gross neurological examination did not reveal any focal deficits. SKIN: No rashes. no petechiae. Results CBC & Chem 7: 10/26/23 01:00 10/26/23 01:00 Labs: Abnormal Lab Results - Last 24 Hours (Table) 10/26/23 10/26/23 10/26/23 Range/Units 01:00 01:00 01:00 RDW 17.3 H (11.5-15.5) % PT 13.7 H (10.0-12.5) sec INR 1.3 H (<1.2) Potassium 3.1 L (3.5-5.1) mmol/L Magnesium 1.5 L (1.6-2.3) mg/dL Total Bilirubin 1.7 H (0.2-1.3) mg/dL Alkaline Phosphatase 146 H (38-126) U/L Urine Protein (Negative) Calcium Oxalate Crystal (None) /hpf Amorphous Sediment (None) /hpf Hyaline Casts (0-2) /lpf Urine Mucus (None) /hpf 10/26/23 Range/Units 02:00 RDW (11.5-15.5) % PT (10.0-12.5) sec INR (<1.2) Potassium (3.5-5.1) mmol/L Magnesium (1.6-2.3) mg/dL Total Bilirubin (0.2-1.3) mg/dL Alkaline Phosphatase (38-126) U/L Urine Protein 2+ H (Negative) Calcium Oxalate Crystal Occasional H (None) /hpf Amorphous Sediment Occasional H (None) /hpf Hyaline Casts 98 H (0-2) /lpf Urine Mucus Occasional H (None) /hpf Assessment and Plan Assessment: Acute CHF exacerbation with increased bilateral lower extremity swelling Upper respiratory tract infection Coronary artery disease s/p 4 stents Hypertension, controlled on admission Chronic kidney disease stage II Chronic atrial fibrillation with controlled heart rate Obesity with BMI of 36 Diabetes mellitus on insulin at home Plan: Continue with IV Lasix 40 mg twice daily Continue with aspirin and Plavix Cardiology consult Patient medication reviews, no Eliquis or Xarelto was listed on his home medication Check hemoglobin A1c and insulin sliding scale Cardiology consult Labs and medication were reviewed.. Continue same treatment. Continue with symptomatic treatment. Resume home medication. Monitor labs and vitals. DVT and GI prophylaxis. Further recommendations as per clinical course of the patient DVT prophylaxis: Subcutaneous heparin GI Prophylaxis: Pepcid Prognosis is guarded
[2023-10-26] MEDS ORDERED: Magnesium Replacement Protocol 1 EACH MISC MISCELLANE PRN (08:33)
[2023-10-26] MEDS ORDERED: Potassium Replacement Protocol 1 EACH MISC MISCELLANE PRN (08:33)
[2023-10-26] MEDS: HEPARIN SODIUM,PORCINE 5,000 UNIT/ML 1 ML VIAL SQ SCH (08:51)
[2023-10-26] MEDS ORDERED: FUROSEMIDE 10 MG/ML 4 ML VIAL IV SCH (09:00)
[2023-10-26] MEDS ORDERED: CLOPIDOGREL 75 MG TAB PO SCH (09:00)
[2023-10-26] MEDS ORDERED: NIFEdipine XL 90 MG TAB.ER.24 PO SCH (09:00)
[2023-10-26] MEDS: ASPIRIN 81 MG PO SCH (09:06)
[2023-10-26] MEDS: THIAMINE 100 MG TAB PO SCH (09:07)
[2023-10-26] MEDS: ATORVASTATIN 40 MG TAB PO SCH (09:07)
[2023-10-26] MEDS: METOPROLOL SUCCINATE (ER) 25 MG TAB.ER.24H PO SCH (09:07)
[2023-10-26] MEDS: POTASSIUM CHLORIDE ER 10 MEQ TAB.ER.PRT PO SCH (09:07)
[2023-10-26] MEDS: SPIRONOLACTONE 25 MG TAB PO SCH (09:07)
[2023-10-26] MEDS: DAPAGLIFLOZIN PROPANEDIOL 10 MG TABLET PO SCH (09:07)
[2023-10-26] MEDS: FUROSEMIDE 10 MG/ML 4 ML VIAL IV SCH (09:07)
[2023-10-26] MEDS: lisinopriL 20 MG TAB PO SCH (09:07)
--- NOTE | 2023-10-26 09:53 | P.CRDCN ---
History of Present Illness History of present illness: HISTORY OF PRESENT ILLNESS: This is a 63-year-old male with a past medical history significant for fibrillation, coronary artery disease with previous stenting, hypertension, hyperlipidemia, diabetes, congestive heart failure, and obesity. Patient follows with a machine room engineer out of town, Dr. Whittington. However he states he has not seen him in a few years. We have been asked to see the patient in consultation for congestive heart failure. Patient examined at the bedside in the emergency room. Patient presented to the hospital with a chief complaint of increased edema. He states over the past 2 weeks he has noticed a lot of swelling in his legs and thighs. He states he usually only has swelling on the top of his feet. He denies gaining any weight recently. He states he has not been waking up at night short of breath. He does report having a nonproductive cough but states he feels as though he has a head cold currently. He denies any shortness of breath at rest but does report shortness of breath with mild exertion such as walking. He denied having any chest pain or pressure. The patient does have a history of CAD. He states he has had 4 stents placed, most recent was a few years ago. He believes these were performed at [facility]. Patient states he has been taking aspirin and Plavix on an outpatient basis. He also has a history of atrial fibrillation. He states to his knowledge he was last in atrial fibrillation about 3 years ago. However he denies feeling any palpitations or flip-flopping and is unsure if he has been in atrial fibrillation or not recently. At the time of examination, bedside telemetry reveals atrial fibrillation with controlled ventricular rate. Patient states he has been anticoagulated with Xarelto. He denies any history of CVA/TIA. DIAGNOSTICS: - EKG reveals atrial fibrillation with right bundle branch block. - Chest xray negative for acute process. - Laboratory data: WBC 8.1. Hemoglobin 15.4. Platelet count 248. Sodium 142. Potassium 3.1. BUN 16. Creatinine 1.08. Troponin negative x 3. proBNP 3740. - Current home cardiac medications include lisinopril 40 mg daily, nifedipine 90 mg daily, Lasix 40 mg daily, Plavix 75 mg daily, Lipitor 40 mg daily, aspirin 81 mg daily. Patient also reports taking Xarelto however this is not on his home medication list.. REVIEW OF SYSTEMS: At the time of my exam: CONSTITUTIONAL: Denies fever or chills. HEENT: Denies blurred vision, vision changes, or eye pain. Denies hemoptysis CARDIOVASCULAR: Denies chest pain. Denies orthopnea. Denies PND. Denies palpitations RESPIRATORY: Denies shortness of breath. GASTROINTESTINAL: Denies abdominal pain. Denies nausea or vomiting. HEMATOLOGIC: Denies bleeding disorders. GENITOURINARY: Denies any blood in urine. SKIN: Denies pruitis. Denies rash. PHYSICAL EXAM: VITAL SIGNS: Reviewed. GENERAL: Well-developed in no acute distress. HEENT: Head is normocephalic. Pupils are equal, round. Sclerae anicteric. Mucous membranes of the mouth are moist. Neck supple. No JVD or thyromegaly LUNGS: Respirations even and unlabored. Lungs diminished bilaterally. HEART: Irregular rate and rhythm. S1 and S2 heard. Systolic murmur noted. ABDOMEN: Soft. Nondistended. Nontender. EXTREMITIES: Normal range of motion. No clubbing or cyanosis. Peripheral pulses intact. 3+ bilateral lower extremity edema NEUROLOGIC: Awake and alert. Oriented x 3. ASSESSMENT: Acute on chronic heart failure, type unknown, echo pending Atrial fibrillation with controlled ventricular rate, duration unknown, paroxysmal versus persistent Coronary artery disease with previous stenting x 4, details unknown at this time Right bundle branch block Hypertension Hyperlipidemia Diabetes Obesity: BMI 36.6 Hypomagnesemia Hypokalemia PLAN: Obtain 2D echo to assess cardiac structure and function Discontinue Plavix. Continue aspirin 81 mg daily. Add Xarelto 20 mg at night Discontinue nifedipine Continue IV Lasix. Increase dosage to 40 mg every 8 Daily weights, accurate intake and output, and monitoring of kidney function Add metoprolol succinate 25 mg daily Add Farxiga 10 mg daily Add Aldactone 25 mg daily Obtain records from patient's primary machine room engineer Further recommendations pending patient course Nurse practitioner note has been reviewed by physician. Signing provider agrees with the documented findings, assessment, and plan of care documented by ASSOCIATE LOAN OFFICER as a scribe. Past Medical History Past Medical History: Coronary Artery Disease (CAD), Heart Failure Past Surgical History: Heart Catheterization With Stent Past Psychological History: No Psychological Hx Reported Smoking Status: Never smoker Past Alcohol Use History: None Reported Past Drug Use History: None Reported Medications and Allergies Home Medications Medication Instructions Recorded Confirmed Type Atorvastatin [Lipitor] 40 mg PO DAILY 07/19/22 10/26/23 History Clopidogrel [Plavix] 75 mg PO DAILY 07/19/22 10/26/23 History Furosemide [Lasix] 40 mg PO DAILY 07/19/22 10/26/23 History Insulin Aspart [NovoLOG Flexpen] 20 units SQ AC-TID 07/19/22 10/26/23 History NIFEdipine [Adalat CC] 90 mg PO DAILY 07/19/22 10/26/23 History lisinopriL [Zestril] 40 mg PO DAILY 07/19/22 10/26/23 History Aspirin EC [Ecotrin Low Dose] 81 mg PO DAILY 10/26/23 10/26/23 History Ergocalciferol [Vitamin D2 (1250 1,250 mcg PO MO 10/26/23 10/26/23 History Mcg = 24580 Iu)] Insulin Glargine,Hum.rec.anlog 20 unit SQ DAILY 10/26/23 10/26/23 History [Basaglar Kwikpen U-100] Potassium Chloride ER [K-Dur 10] 10 meq PO DAILY 10/26/23 10/26/23 History Thiamine [Vitamin B-1] 100 mg PO DAILY 10/26/23 10/26/23 History Allergies Allergy/AdvReac Type Severity Reaction Status Date / Time erythromycin base AdvReac Nausea & Verified 10/26/23 07:44 Vomiting hydromorphone [From Dilaudid] AdvReac Nausea & Verified 10/26/23 07:44 Vomiting morphine AdvReac Nausea & Verified 10/26/23 07:44 Vomiting tramadol AdvReac Hallucinati Verified 10/26/23 07:44 ons Physical Exam Vitals: Vital Signs Temp Pulse Resp BP Pulse Ox 10/26/23 08:33 95 10/26/23 07:10 76 20 156/104 95 10/26/23 03:59 87 19 120/98 91 L 10/26/23 02:11 21 10/26/23 02:01 87 20 151/97 94 L 10/26/23 00:24 97.6 F 78 20 141/95 92 L Intake and Output 10/25/23 10/26/23 10/26/23 22:59 06:59 14:59 Intake Total 100 Output Total 1200 700 Balance -1100 -700 Intake: Intake, IV Titration 100 Amount Magnesium Sulfate-D5w Pmx 100 1 gm In Dextrose/Water 1 100ml.bag @ 100 mls/hr IVPB ONCE ONE Rx#: [id number] Output: Urine 1200 700 Other: # Voids 1 1 Weight 129.274 kg Results 10/26/23 01:00 10/26/23 01:00 Cardiac Enzymes 10/26/23 10/26/23 10/26/23 Range/Units 01:00 01:00 03:42 AST 28 (17-59) U/L Troponin I 0.019 0.024 (0.000-0.034) ng/mL 10/26/23 Range/Units 07:06 AST (17-59) U/L Troponin I 0.019 (0.000-0.034) ng/mL Coagulation 10/26/23 Range/Units 01:00 PT 13.7 H (10.0-12.5) sec APTT 27.9 (22.0-30.0) sec CBC 10/26/23 Range/Units 01:00 WBC 8.1 (3.8-10.6) k/uL RBC 5.73 (4.30-5.90) m/uL Hgb 15.4 (13.0-17.5) gm/dL Hct 49.6 (39.0-53.0) % Plt Count 248 (150-450) k/uL Comprehensive Metabolic Panel 10/26/23 Range/Units 01:00 Sodium 142 (137-145) mmol/L Potassium 3.1 L (3.5-5.1) mmol/L Chloride 105 (98-107) mmol/L Carbon Dioxide 26 (22-30) mmol/L BUN 16 (9-20) mg/dL Creatinine 1.08 (0.66-1.25) mg/dL Glucose 91 (74-99) mg/dL Calcium 9.1 (8.4-10.2) mg/dL AST 28 (17-59) U/L ALT 15 (4-49) U/L Alkaline Phosphatase 146 H (38-126) U/L Total Protein 7.5 (6.3-8.2) g/dL Albumin 4.1 (3.5-5.0) g/dL Current Medications Generic Name Dose Route Start Last Admin Trade Name Freq PRN Reason Stop Dose Admin Acetaminophen 650 mg 05/01/24 02:45 Acetaminophen Tab 325 Mg Tab PO Q6HR PRN Mild Pain or Fever > 100.5 Aspirin 81 mg 10/26/23 09:00 Aspirin 81 Mg PO DAILY COUNTS INCLUDE 234 BEDS AT THE [facility] Atorvastatin Calcium 40 mg 10/26/23 09:00 Atorvastatin 40 Mg Tab PO DAILY COUNTS INCLUDE 234 BEDS AT THE [facility] Clopidogrel Bisulfate 75 mg 10/26/23 09:00 Clopidogrel 75 Mg Tab PO DAILY COUNTS INCLUDE 234 BEDS AT THE [facility] Ergocalciferol 1,250 mcg 10/31/23 09:00 Ergocalciferol 1,250 Mcg (50,000 Iu) Capsule PO MO COUNTS INCLUDE 234 BEDS AT THE [facility] Furosemide 40 mg 10/26/23 09:00 Furosemide 10 Mg/Ml 4 Ml Vial IV Q12HR COUNTS INCLUDE 234 BEDS AT THE [facility] Heparin Sodium (Porcine) 5,000 unit 10/26/23 08:00 Heparin Sodium,Porcine 5,000 Unit/Ml 1 Ml Vial SQ Q8HR COUNTS INCLUDE 234 BEDS AT THE [facility] Lisinopril 40 mg 10/26/23 09:00 Lisinopril 20 Mg Tab PO DAILY COUNTS INCLUDE 234 BEDS AT THE [facility] Miscellaneous Information 1 each 10/26/23 08:33 Potassium Replacement Protocol 1 Each Misc MISCELLANE DAILY PRN Per Protocol Protocol Miscellaneous Information 1 each 10/26/23 08:33 Magnesium Replacement Protocol 1 Each Misc MISCELLANE DAILY PRN Per Protocol Protocol Naloxone HCl 0.2 mg 10/26/23 02:45 Naloxone 0.4 Mg/Ml 1 Ml Vial IV Q2M PRN Opioid Reversal Nifedipine 90 mg 10/26/23 09:00 Nifedipine Xl 90 Mg Tab.Er.24 PO DAILY COUNTS INCLUDE 234 BEDS AT THE [facility] Ondansetron HCl 4 mg 10/26/23 02:45 Ondansetron 4 Mg/2 Ml Vial IVP Q8HR PRN Nausea And Vomiting Potassium Chloride 10 meq 10/26/23 09:00 Potassium Chloride Er 10 Meq Tab.Er.Prt PO DAILY COUNTS INCLUDE 234 BEDS AT THE [facility] Thiamine HCl 100 mg 10/26/23 09:00 Thiamine 100 Mg Tab PO DAILY COUNTS INCLUDE 234 BEDS AT THE [facility] Intake and Output 10/25/23 10/26/23 10/26/23 22:59 06:59 14:59 Intake Total 100 Output Total 1200 700 Balance -1100 -700 Intake: Intake, IV Titration 100 Amount Magnesium Sulfate-D5w Pmx 100 1 gm In Dextrose/Water 1 100ml.bag @ 100 mls/hr IVPB ONCE ONE Rx#: [id number] Output: Urine 1200 700 Other: # Voids 1 1 Weight 129.274 kg 10/26/23 01:00 10/26/23 01:00
[2023-10-26 10:56] LABS: T4, Free (Free Thyroxine) 1.37 ng/dL (0.78-2.19)
[2023-10-26] MEDS: RIVAROXABAN 20 MG TAB PO SCH (17:32)
[2023-10-26 20:15] LABS: Glucose,Whole Blood 113 mg/dL (70-110)
[2023-10-27 06:19] LABS: Glucose,Whole Blood 98 mg/dL (70-110)
--- NOTE | 2023-10-27 07:06 | CA ---
Transthoracic Echo Report Name: Irving Chatman Age: 63 Gender: M : 1960 Exam Date: 10/26/2023 13:05 Exam Location: [place] [facility] Ht (in): 74 Wt (lb): 285 Ordering Physician: Kristine Bland Attending/Referring Phys: [id number], Baldo Regulatory Affairs Coordinator Beverly Coelho, JESSE Procedure CPT: Indications: LV function, CHF Cardiac Hx: Technical Quality: Poor Contrast 1: Definity Total Dose (mL): 2 Contrast 2: Total Dose (mL): MEASUREMENTS (Male / Female) Normal Values 2D ECHO LV Diastolic Diameter PLAX 5.3 cm 4.2 - 5.9 / 3.9 - 5.3 cm LV Systolic Diameter PLAX 5.0 cm IVS Diastolic Thickness 1.6 cm 0.6 - 1.0 / 0.6 - 0.9 cm LVPW Diastolic Thickness 1.6 cm 0.6 - 1.0 / 0.6 - 0.9 cm LV Relative Wall Thickness 0.6 RV Internal Dim ED PLAX 4.7 cm LVOT Diameter 2.3 cm LA Systolic Diameter LX 5.9 cm 3.0 - 4.0 / 2.7 - 3.8 cm LV Diastolic Volume MOD BP 113.6 cm??? 67 - 155 / 56 - 104 cm??? LV Systolic Volume MOD BP 77.9 cm??? 22 - 58 / 19 - 49 cm??? LV Ejection Fraction MOD BP 31.5 % >= 55 % LV Cardiac Index MOD BP 1123.2 cm???/min???m??? LV Diastolic Volume MOD 4C 107.5 cm??? LV Systolic Volume MOD 4C 75.0 cm??? LV Ejection Fraction MOD 4C 30.2 % LV Cardiac Index MOD 4C 1020.3 cm???/min???m??? LV Diastolic Length 4C 8.7 cm LV Systolic Length 4C 7.8 cm LV Diastolic Volume MOD 2C 115.1 cm??? LV Systolic Volume MOD 2C 86.0 cm??? LV Ejection Fraction MOD 2C 25.3 % LV Cardiac Index MOD 2C 913.0 cm???/min???m??? LV Diastolic Length 2C 8.1 cm LV Systolic Length 2C 7.6 cm LA Volume 212.3 cm??? 18 - 58 / 22 - 52 cm??? LA Volume Index 80.4 cm???/m??? 16 - 28 cm???/m??? M-MODE Aortic Root Diameter MM 3.5 cm LA Systolic Diameter MM 5.5 cm LA Ao Ratio MM 1.6 AV Cusp Separation MM 2.1 cm DOPPLER AV Peak Velocity 88.7 cm/s AV Peak Gradient 3.2 mmHg TR Peak Velocity 230.4 cm/s TR Peak Gradient 21.2 mmHg Right Ventricular Systolic Press 39.5 mmHg FINDINGS Left Ventricle Left ventricular ejection fraction is estimated at 25-30%. Moderately increased septal wall thickness. Moderately increased left ventricular systolic volume. Reduced global left ventricular systolic function. Right Ventricle Severe right ventricular dilatation. Mild pulmonary hypertension. Right Atrium Severe right atrial dilatation. Left Atrium Severely increased left atrial diameter. Severely increased left atrial volume. Severely increased left atrial area. Mitral Valve Structurally normal mitral valve.mitral valve thickened. [id number] mitral regurgitation. No mitral stenosis. Aortic Valve Trileaflet aortic valve. No aortic stenosis. No aortic regurgitation. Trileaflet aortic valve. Tricuspid Valve Structurally normal tricuspid valve. [id number] tricuspid regurgitation. Pulmonic Valve Structurally normal pulmonic valve. Moderate pulmonic regurgitation. Pericardium No pericardial or pleural effusion. Aorta Normal size aortic root and proximal ascending aorta. CONCLUSIONS Severely impaired LV function with EF between 25-30% with global hypokinesia Severe right ventricular enlargement as well [id number] mitral regurgitation Mild to moderate tricuspid regurgitation Previewed by: Dr. Manish Cornejo MD (Electronically Signed) Final Date: 27 Oct 2023 07:05
--- NOTE | 2023-10-27 09:14 | P.PN ---
Subjective This is a pleasant 63 years old male with past medical history of multiple medical problems as below including history of coronary artery disease s/p 4 stents. His PCP is Dr. rodriguez , also home about 1 week ago and given some antibiotic for his congested nose but with no much relief. Patient presents because of increased leg swelling in both legs over more than a week and he thinks is because to his abdomen which looks hard. Is been complaining from shortness of breath with walking, however no orthopnea or paroxysmal nocturnal dyspnea He denies chest pain but complains from little cough and phlegm and congested nose with sneezing but no sore throat for also more than a week Patient denies change in urine or bowel habits, he has little Headache but no weakness or numbness Patient denies smoking alcohol or illicit drugs. He is hemodynamically stable. 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 Echocardiogram showing severely dilated right ventricle and low ejection fraction of the left ventricle 25 to 30% going on with his systolic CHF. Also his heart is controlled and he was started on Xarelto while Plavix was discontinued. Patient continued with aspirin. Patient informed with this recommendation and risk of bleeding explained for him extensively and he verbalized understanding and acceptance Blood pressure is better controlled after switching his nifedipine and to metoprolol plus Aldactone and Farxiga. TSH level was high on admission more than 10 but T4 is normal therefore we are going to recheck his thyroid function test tomorrow. Review of systems CONSTITUTIONAL: No fever, no malaise, no fatigue. HEENT: No recent visual problems or hearing problems. Denied any sore throat. CARDIOVASCULAR: No orthopnea, PND, no palpitations, no syncope. PULMONARY: No shortness of breath, no cough, no hemoptysis. ENDOCRINE: Denies any polyuria or polydipsia. Active Medications Generic Name Dose Route Start Last Admin Trade Name Freq PRN Reason Stop Dose Admin Acetaminophen 650 mg 10/26/23 02:45 Acetaminophen Tab 325 Mg Tab PO Q6HR PRN Mild Pain or Fever > 100.5 Aspirin 81 mg 10/26/23 09:00 10/27/23 08:52 Aspirin 81 Mg PO 81 mg DAILY CRISTOBAL Administration Atorvastatin Calcium 40 mg 10/26/23 09:00 10/27/23 08:51 Atorvastatin 40 Mg Tab PO 40 mg DAILY CRISTOBAL Administration Dapagliflozin 10 mg 10/26/23 09:00 10/27/23 08:51 Dapagliflozin Propanediol 10 Mg Tablet PO 10 mg DAILY CRISTOBAL Administration Ergocalciferol 1,250 mcg 10/31/23 09:00 Ergocalciferol 1,250 Mcg (50,000 Iu) Capsule PO MO CRISTOBAL Furosemide 40 mg 10/26/23 09:00 10/27/23 08:50 Furosemide 10 Mg/Ml 4 Ml Vial IV 40 mg Q8HR CRISTOBAL Administration Lisinopril 40 mg 10/26/23 09:00 10/27/23 08:51 Lisinopril 20 Mg Tab PO 40 mg DAILY CRISTOBAL Administration Metoprolol Succinate 25 mg 10/26/23 09:00 10/27/23 08:51 Metoprolol Succinate (Er) 25 Mg Tab.Er.24h PO 25 mg DAILY CRISTOBAL Administration Miscellaneous Information 1 each 10/26/23 08:33 Potassium Replacement Protocol 1 Each Misc MISCELLANE DAILY PRN Per Protocol Protocol Miscellaneous Information 1 each 10/26/23 08:33 Magnesium Replacement Protocol 1 Each Misc MISCELLANE DAILY PRN Per Protocol Protocol Naloxone HCl 0.2 mg 10/26/23 02:45 Naloxone 0.4 Mg/Ml 1 Ml Vial IV Q2M PRN Opioid Reversal Ondansetron HCl 4 mg 10/26/23 02:45 Ondansetron 4 Mg/2 Ml Vial IVP Q8HR PRN Nausea And Vomiting Potassium Chloride 10 meq 10/26/23 09:00 10/27/23 08:51 Potassium Chloride Er 10 Meq Tab.Er.Prt PO 10 meq DAILY CRISTOBAL Administration Rivaroxaban 20 mg 10/26/23 17:30 10/26/23 17:32 Rivaroxaban 20 Mg Tab PO 20 mg W/SUPPER CRITSOBAL Administration Protocol Spironolactone 25 mg 10/26/23 09:00 10/27/23 08:51 Spironolactone 25 Mg Tab PO 25 mg DAILY CRISTOBAL Administration Thiamine HCl 100 mg 10/26/23 09:00 10/27/23 08:51 Thiamine 100 Mg Tab PO 100 mg DAILY CRISTOBAL Administration Objective - Vital Signs Vital signs: Vital Signs Temp 98.1 F 10/27/23 08:00 Pulse 94 10/27/23 08:00 Resp 16 10/27/23 08:00 BP 145/89 10/27/23 08:00 Pulse Ox 94 L 10/27/23 08:52 FiO2 Intake & Output 10/26/23 10/27/23 10/27/23 18:59 06:59 18:59 Intake Total 240 Output Total 1250 1999 Balance -1249 -1999 240 Weight 129.274 kg 134.6 kg Intake: Oral 240 Output: Urine 1250 1999 Other: Voiding Method Toilet # Voids 1 - Exam GENERAL: The patient is alert and oriented x3, not in any acute distress. Well developed, well nourished. HEENT: Pupils are round and equally reacting to light. EOMI. No scleral icterus. No conjunctival pallor. Normocephalic, atraumatic. No pharyngeal erythema. No thyromegaly. CARDIOVASCULAR: S1 and S2 present. No murmurs, rubs, or gallops. PULMONARY: Chest is clear to auscultation, no wheezing , no crackles. ABDOMEN: Soft, nontender, nondistended, normoactive bowel sounds. No palpable organomegaly. MUSCULOSKELETAL: No joint swelling or deformity. -EXTREMITIES: No cyanosis, clubbing,. 2-3+ bilateral pitting leg edema. NEUROLOGICAL: Gross neurological examination did not reveal any focal deficits. SKIN: No rashes. no petechiae. - Labs CBC & Chem 7: 10/26/23 01:00 10/26/23 01:00 Labs: Abnormal Lab Results - Last 24 Hours (Table) 10/26/23 10/26/23 10/26/23 Range/Units 07:08 07:13 20:13 POC Glucose (mg/dL) 113 H (70-110) mg/dL Magnesium 1.5 L (1.6-2.3) mg/dL TSH 10.900 H (0.465-4.680) mIU/L Assessment and Plan Assessment: Acute on chronic systolic CHF exacerbation with increased bilateral lower extremity swelling. EF 25 to 30% Chronic atrial fibrillation with controlled heart rate. Started on Xarelto Upper respiratory tract infection Coronary artery disease s/p 4 stents Hypertension, uncontrolled on admission, currently improved Chronic kidney disease stage II Obesity with BMI of 36 Diabetes mellitus on insulin at home Plan: Continue with IV Lasix 40 mg twice daily Continue with aspirin and Plavix Cardiology consult Patient was started on Xarelto was listed on his home medication Check hemoglobin A1c and insulin sliding scale Fluid restriction 1500 mL/day Labs and medication were reviewed.. Continue same treatment. Continue with symptomatic treatment. Resume home medication. Monitor labs and vitals. DVT and GI prophylaxis. Further recommendations as per clinical course of the patient DVT prophylaxis: S on Xarelto GI Prophylaxis: Pepcid Prognosis is guarded
[2023-10-27 09:27] LABS: Anisocytosis Slight; Basophils # (A) 0.1 k/uL (0-0.2); Basophils % (A) 1 %; Eosinophils # (A) 0.3 k/uL (0-0.7); Eosinophils % (A) 4 %; HCT 49.4 % (39.0-53.0); Lymphocytes # (A) 1.1 k/uL (1.0-4.8); Lymphocytes % (A) 16 %; MCH 26.8 pg (25.0-35.0); MCHC 30.4 g/dL (31.0-37.0); MCV 88.1 fL (80.0-100.0); Mean Platelet Volume 9.1; Monocytes # (A) 0.7 k/uL (0-1.0); Monocytes % (A) 10 %; Neutrophils # (A) 4.6 k/uL (1.3-7.7); Neutrophils % (A) 69 %; Platelet Count 260 k/uL (150-450); RBC 5.61 m/uL (4.30-5.90); RDW 17.2 % (11.5-15.5); WBC 6.8 k/uL (3.8-10.6)
[2023-10-27 09:46] LABS: ALT 16 U/L (4-49); AST 27 U/L (17-59); African American GFR (CKD) >90 (>60 ml/min/1.73 sqM); Albumin 3.8 g/dL (3.5-5.0); Alkaline Phosphatase 132 U/L (38-126); Anion Gap 8 mmol/L; Blood Urea Nitrogen 12 mg/dL (9-20); Calcium 8.6 mg/dL (8.4-10.2); Carbon Dioxide 31 mmol/L (22-30); Chloride 102 mmol/L (98-107); Glucose 133 mg/dL (74-99); Magnesium 1.4 mg/dL (1.6-2.3); Non-African American GFR(CKD) 79 (>60 ml/min/1.73 sqM); Potassium 3.1 mmol/L (3.5-5.1); Sodium 141 mmol/L (137-145); Total Bilirubin 1.9 mg/dL (0.2-1.3)
--- NOTE | 2023-10-27 11:18 | P.PN ---
Subjective HISTORY OF PRESENT ILLNESS: This is a 63-year-old male with a past medical history significant for fibrillation, coronary artery disease with previous stenting, hypertension, hyperlipidemia, diabetes, congestive heart failure, and obesity. Patient follows with a advertising solicitor out of town, Dr. Whittington. However he states he has not seen him in a few years. We have been asked to see the patient in consultation for congestive heart failure. Patient examined at the bedside in the emergency room. Patient presented to the hospital with a chief complaint of increased edema. He states over the past 2 weeks he has noticed a lot of swelling in his legs and thighs. He states he usually only has swelling on the top of his feet. He denies gaining any weight recently. He states he has not been waking up at night short of breath. He does report having a nonproductive cough but states he feels as though he has a head cold currently. He denies any shortness of breath at rest but does report shortness of breath with mild exertion such as walking. He denied having any chest pain or pressure. The patient does have a history of CAD. He states he has had 4 stents placed, most recent was a few years ago. He believes these were performed at [facility]. Patient states he has been taking aspirin and Plavix on an outpatient basis. He also has a history of atrial fibrillation. He states to his knowledge he was last in atrial fibrillation about 3 years ago. However he denies feeling any palpitations or flip-flopping and is unsure if he has been in atrial fibrillation or not recently. At the time of examination, bedside telemetry reveals atrial fibrillation with controlled ventricular rate. Patient states he has been anticoagulated with Xarelto. He denies any history of CVA/TIA. DIAGNOSTICS: - EKG reveals atrial fibrillation with right bundle branch block. - Chest xray negative for acute process. - Laboratory data: WBC 8.1. Hemoglobin 15.4. Platelet count 248. Sodium 142. Potassium 3.1. BUN 16. Creatinine 1.08. Troponin negative x 3. proBNP 3740. - Current home cardiac medications include lisinopril 40 mg daily, nifedipine 90 mg daily, Lasix 40 mg daily, Plavix 75 mg daily, Lipitor 40 mg daily, aspirin 81 mg daily. Patient also reports taking Xarelto however this is not on his home medication list.. 10/27/2023 Patient examined this morning at the bedside. Patient denies chest pain or pressure. Currently denies SOB. He continues to have lower extremity edema. He remains on IV lasix. Echocardiogram completed revealing severely impaired LV function with an EF between 25 and 30% with global hypokinesia, mild to moderate MR and mild to moderate tricuspid regurgitation. Patient is unsure if he has a history of cardiomyopathy. Vital signs are stable. PHYSICAL EXAM: VITAL SIGNS: Reviewed. GENERAL: Well-developed in no acute distress. HEENT: Head is normocephalic. Pupils are equal, round. Sclerae anicteric. Mucous membranes of the mouth are moist. Neck supple. No JVD or thyromegaly LUNGS: Respirations even and unlabored. Lungs diminished bilaterally. HEART: Irregular rate and rhythm. S1 and S2 heard. Systolic murmur noted. ABDOMEN: Soft. Nondistended. Nontender. EXTREMITIES: Normal range of motion. No clubbing or cyanosis. Peripheral pulses intact. 3+ bilateral lower extremity edema NEUROLOGIC: Awake and alert. Oriented x 3. ASSESSMENT: Acute on chronic heart failure, EF 25 to 30% Cardiomyopathy, unsure if acute or chronic, awaiting records from outside facility Atrial fibrillation with controlled ventricular rate, duration unknown, paroxysmal versus persistent Coronary artery disease with previous stenting x 4, details unknown at this time Right bundle branch block Hypertension Hyperlipidemia Diabetes Obesity: BMI 36.6 Hypomagnesemia Hypokalemia PLAN: Continue current cardiac medications Continue IV Lasix 40 mg every 8 hours Daily weights, accurate intake and output, and monitoring of kidney function Obtain records from patient's primary advertising solicitor Will consider cardiac cath due to cardiomyopathy once patients volume status improves and pending review of patients previous cardiac records Records received from [facility]. Patient did undergo angioplasty without stenting of the RCA in 2018. Most recent from [facility] was in 2019 and patients EF was normal at that time. Still awaiting records from [facility]. Further recommendations pending patient course Nurse practitioner note has been reviewed by physician. Signing provider agrees with the documented findings, assessment, and plan of care documented by CASCADE OPERATOR as a scribe. Objective - Vital Signs Vital signs: Vital Signs Temp 98.1 F 10/27/23 08:00 Pulse 94 10/27/23 08:00 Resp 16 10/27/23 08:00 BP 145/89 10/27/23 08:00 Pulse Ox 94 L 10/27/23 08:52 FiO2 Intake & Output 10/26/23 10/27/23 10/27/23 18:59 06:59 18:59 Intake Total 684 Output Total 1250 1999 600 Balance -1249 84 Weight 129.274 kg 134.6 kg Intake: Oral 684 Output: Urine 1250 1999 600 Other: Voiding Method Toilet # Voids 1 - Labs CBC & Chem 7: 10/27/23 08:36 10/27/23 08:36 Labs: Abnormal Lab Results - Last 24 Hours (Table) 10/26/23 10/27/23 10/27/23 Range/Units 20:13 08:36 08:36 MCHC 30.4 L (31.0-37.0) g/dL RDW 17.2 H (11.5-15.5) % Potassium 3.1 L (3.5-5.1) mmol/L Carbon Dioxide 31 H (22-30) mmol/L Glucose 133 H (74-99) mg/dL POC Glucose (mg/dL) 113 H (70-110) mg/dL Magnesium 1.4 L (1.6-2.3) mg/dL Total Bilirubin 1.9 H (0.2-1.3) mg/dL Alkaline Phosphatase 132 H (38-126) U/L
[2023-10-27 11:30] LABS: Glucose,Whole Blood 105 mg/dL (70-110)
[2023-10-27 16:36] LABS: Glucose,Whole Blood 107 mg/dL (70-110)
[2023-10-27] MEDS: POTASSIUM CHLORIDE ER 20 MEQ TAB.ER PO STA (17:09)
[2023-10-27] MEDS: MAGNESIUM OXIDE 400 MG TAB PO SCH (17:10)
[2023-10-27 19:50] LABS: Glucose,Whole Blood 144 mg/dL (70-110)
[2023-10-28 06:24] LABS: Glucose,Whole Blood 94 mg/dL (70-110)
--- NOTE | 2023-10-28 08:46 | P.PN ---
Subjective This is a pleasant 63 years old male with past medical history of multiple medical problems as below including history of coronary artery disease s/p 4 stents. His PCP is Dr. rodriguez , also home about 1 week ago and given some antibiotic for his congested nose but with no much relief. Patient presents because of increased leg swelling in both legs over more than a week and he thinks is because to his abdomen which looks hard. Is been complaining from shortness of breath with walking, however no orthopnea or paroxysmal nocturnal dyspnea He denies chest pain but complains from little cough and phlegm and congested nose with sneezing but no sore throat for also more than a week Patient denies change in urine or bowel habits, he has little Headache but no weakness or numbness Patient denies smoking alcohol or illicit drugs. He is hemodynamically stable. 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 Echocardiogram showing severely dilated right ventricle and low ejection fraction of the left ventricle 25 to 30% going on with his systolic CHF. Also his heart is controlled and he was started on Xarelto while Plavix was discontinued. Patient continued with aspirin. Patient informed with this recommendation and risk of bleeding explained for him extensively and he verbalized understanding and acceptance Blood pressure is better controlled after switching his nifedipine and to metoprolol plus Aldactone and Farxiga. TSH level was high on admission more than 10 but T4 is normal therefore we are going to recheck his thyroid function test tomorrow. 08/30/2023 Patient keep diuresing well, he peed 4 L yesterday He lost 11 pounds since admission He feels improvement Patient still has moderate bilateral leg swelling also improving Patient wants to stay in the hospital and continue diuresis. Currently on IV Lasix 40 mg 3 times a day he is on aspirin 81 mg and Xarelto added. Consult bottle caser for Xarelto co-pay Objective - Vital Signs Vital signs: Vital Signs Temp 98.4 F 10/28/23 03:14 Pulse 82 10/28/23 03:14 Resp 20 10/28/23 03:14 BP 151/67 10/28/23 03:14 Pulse Ox 93 L 10/28/23 03:14 FiO2 Intake & Output 10/27/23 10/28/23 10/28/23 18:59 06:59 18:59 Intake Total 1044 Output Total 5436 2700 945 Balance -1531 -2700 -275 Weight 130.6 kg Intake: Oral 1044 Output: Urine 2289 2700 275 Other: Voiding Method Toilet Toilet # Voids 3 - Exam GENERAL: The patient is alert and oriented x3, not in any acute distress. Well developed, well nourished. HEENT: Pupils are round and equally reacting to light. EOMI. No scleral icterus. No conjunctival pallor. Normocephalic, atraumatic. No pharyngeal erythema. No thyromegaly. CARDIOVASCULAR: S1 and S2 present. No murmurs, rubs, or gallops. PULMONARY: Chest is clear to auscultation, no wheezing , no crackles. ABDOMEN: Soft, nontender, nondistended, normoactive bowel sounds. No palpable organomegaly. MUSCULOSKELETAL: No joint swelling or deformity. -EXTREMITIES: No cyanosis, clubbing,. 2-3+ bilateral pitting leg edema. NEUROLOGICAL: Gross neurological examination did not reveal any focal deficits. SKIN: No rashes. no petechiae. - Labs CBC & Chem 7: 10/27/23 08:36 10/27/23 08:36 Labs: Abnormal Lab Results - Last 24 Hours (Table) 10/27/23 10/27/23 10/27/23 Range/Units 08:36 08:36 19:47 MCHC 30.4 L (31.0-37.0) g/dL RDW 17.2 H (11.5-15.5) % Potassium 3.1 L (3.5-5.1) mmol/L Carbon Dioxide 31 H (22-30) mmol/L Glucose 133 H (74-99) mg/dL POC Glucose (mg/dL) 144 H (70-110) mg/dL Magnesium 1.4 L (1.6-2.3) mg/dL Total Bilirubin 1.9 H (0.2-1.3) mg/dL Alkaline Phosphatase 132 H (38-126) U/L Assessment and Plan Assessment: Acute on chronic systolic CHF exacerbation with increased bilateral lower extremity swelling. EF 25 to 30% Chronic atrial fibrillation with controlled heart rate. Started on Xarelto Upper respiratory tract infection Coronary artery disease s/p 4 stents Hypertension, uncontrolled on admission, currently improved Chronic kidney disease stage II Obesity with BMI of 36 Diabetes mellitus on insulin at home Plan: Continue with IV Lasix 40 mg twice daily Continue with aspirin and Plavix Cardiology consult Patient was started on Xarelto was listed on his home medication Check hemoglobin A1c and insulin sliding scale Fluid restriction 1500 mL/day Labs and medication were reviewed.. Continue same treatment. Continue with symptomatic treatment. Resume home medication. Monitor labs and vitals. DVT and GI prophylaxis. Further recommendations as per clinical course of the patient DVT prophylaxis: S on Xarelto GI Prophylaxis: Pepcid Prognosis is guarded
[2023-10-28 09:17] LABS: NT-Pro-B-Type Natriuretic Pept 10000 pg/mL
[2023-10-28 09:33] LABS: African American GFR (CKD) 71 (>60 ml/min/1.73 sqM); Anion Gap 8 mmol/L; Blood Urea Nitrogen 15 mg/dL (9-20); Calcium 8.6 mg/dL (8.4-10.2); Carbon Dioxide 34 mmol/L (22-30); Chloride 99 mmol/L (98-107); Glucose 141 mg/dL (74-99); Non-African American GFR(CKD) 61 (>60 ml/min/1.73 sqM); Potassium 3.1 mmol/L (3.5-5.1); Sodium 141 mmol/L (137-145)
[2023-10-28 10:11] LABS: T4, Free (Free Thyroxine) 1.41 ng/dL (0.78-2.19)
[2023-10-28] MEDS ORDERED: Potassium Replacement Protocol 1 EACH MISC MISCELLANE PRN (11:08)
[2023-10-28] MEDS: POTASSIUM CHLORIDE ER 20 MEQ TAB.ER PO SCH (12:49)
[2023-10-28 12:59] LABS: Glucose,Whole Blood 130 mg/dL (70-110)
--- NOTE | 2023-10-28 14:16 | P.PN ---
Subjective HISTORY OF PRESENT ILLNESS: This is a 63-year-old male with a past medical history significant for fibrillation, coronary artery disease with previous stenting, hypertension, hyperlipidemia, diabetes, congestive heart failure, and obesity. Patient follows with a program specialist out of town, Dr. Whittington. However he states he has not seen him in a few years. We have been asked to see the patient in consultation for congestive heart failure. Patient examined at the bedside in the emergency room. Patient presented to the hospital with a chief complaint of increased edema. He states over the past 2 weeks he has noticed a lot of swelling in his legs and thighs. He states he usually only has swelling on the top of his feet. He denies gaining any weight recently. He states he has not been waking up at night short of breath. He does report having a nonproductive cough but states he feels as though he has a head cold currently. He denies any shortness of breath at rest but does report shortness of breath with mild exertion such as walking. He denied having any chest pain or pressure. The patient does have a history of CAD. He states he has had 4 stents placed, most recent was a few years ago. He believes these were performed at [facility]. Patient states he has been taking aspirin and Plavix on an outpatient basis. He also has a history of atrial fibrillation. He states to his knowledge he was last in atrial fibrillation about 3 years ago. However he denies feeling any palpitations or flip-flopping and is unsure if he has been in atrial fibrillation or not recently. At the time of examination, bedside telemetry reveals atrial fibrillation with controlled ventricular rate. Patient states he has been anticoagulated with Xarelto. He denies any history of CVA/TIA. DIAGNOSTICS: - EKG reveals atrial fibrillation with right bundle branch block. - Chest xray negative for acute process. - Laboratory data: WBC 8.1. Hemoglobin 15.4. Platelet count 248. Sodium 142. Potassium 3.1. BUN 16. Creatinine 1.08. Troponin negative x 3. proBNP 3740. - Current home cardiac medications include lisinopril 40 mg daily, nifedipine 90 mg daily, Lasix 40 mg daily, Plavix 75 mg daily, Lipitor 40 mg daily, aspirin 81 mg daily. Patient also reports taking Xarelto however this is not on his home medication list.. 10/27/2023 Patient examined this morning at the bedside. Patient denies chest pain or pressure. Currently denies SOB. He continues to have lower extremity edema. He remains on IV lasix. Echocardiogram completed revealing severely impaired LV function with an EF between 25 and 30% with global hypokinesia, mild to moderate MR and mild to moderate tricuspid regurgitation. Patient is unsure if he has a history of cardiomyopathy. Vital signs are stable. Records received from [facility]. Patient did undergo angioplasty without stenting of the RCA in 2018. Most recent from [facility] was in 2019 and patients EF was normal at that time. Still awaiting records from [facility]. 10/28/2023 Patient examined this morning. He is sitting up in the chair. He continues to report shortness of breath although improving. He remains on IV Lasix 40 mg every 8 hours. Kidney function remained stable. Creatinine today 1.24. He denies any chest pain or pressure. PHYSICAL EXAM: VITAL SIGNS: Reviewed. GENERAL: Well-developed in no acute distress. HEENT: Head is normocephalic. Pupils are equal, round. Sclerae anicteric. Mucous membranes of the mouth are moist. Neck supple. No JVD or thyromegaly LUNGS: Respirations even and unlabored. Lungs diminished bilaterally. HEART: Irregular rate and rhythm. S1 and S2 heard. Systolic murmur noted. ABDOMEN: Soft. Nondistended. Nontender. EXTREMITIES: Normal range of motion. No clubbing or cyanosis. Peripheral pulses intact. 3+ bilateral lower extremity edema NEUROLOGIC: Awake and alert. Oriented x 3. ASSESSMENT: Acute on chronic heart failure, EF 25 to 30% Cardiomyopathy, unsure if acute or chronic, awaiting records from outside facili ty Atrial fibrillation with controlled ventricular rate, duration unknown, paroxysmal versus persistent Coronary artery disease with previous stenting x 4, details unknown at this time Right bundle branch block Hypertension Hyperlipidemia Diabetes Obesity: BMI 36.6 Hypomagnesemia Hypokalemia PLAN: Continue current cardiac medications Increase metoprolol succinate to 50 mg daily Continue IV Lasix 40 mg every 8 hours Daily weights, accurate intake and output, and monitoring of kidney function Patient will require cardiac cath due to cardiomyopathy once patients volume status improves Case management consulted for PWAo co-pay. Prescription sent to the pharmacy. Further recommendations pending patient course Nurse practitioner note has been reviewed by physician. Signing provider agrees with the documented findings, assessment, and plan of care documented by DATE PITTER as a scribe. Objective - Vital Signs Vital signs: Vital Signs Temp 98.4 F 10/28/23 03:14 Pulse 64 10/28/23 12:00 Resp 16 10/28/23 12:00 BP 150/94 10/28/23 12:00 Pulse Ox 92 L 10/28/23 12:00 FiO2 Intake & Output 10/27/23 10/28/23 10/28/23 18:59 06:59 18:59 Intake Total 1044 240 Output Total 3555 2700 301 Balance -1531 -2700 -35 Weight 130.6 kg Intake: Oral 1044 240 Output: Urine 2832 2700 060 Other: Voiding Method Toilet Toilet Toilet # Voids 3 - Labs CBC & Chem 7: 10/27/23 08:36 10/28/23 08:07 Labs: Abnormal Lab Results - Last 24 Hours (Table) 10/27/23 10/28/23 10/28/23 Range/Units 19:47 08:07 12:56 Potassium 3.1 L (3.5-5.1) mmol/L Carbon Dioxide 34 H (22-30) mmol/L Glucose 141 H (74-99) mg/dL POC Glucose (mg/dL) 144 H 130 H (70-110) mg/dL TSH 7.890 H (0.465-4.680) mIU/L
[2023-10-28 15:59] LABS: Glucose,Whole Blood 124 mg/dL (70-110)
[2023-10-28] MEDS: METOPROLOL SUCCINATE (ER) 25 MG TAB.ER.24H PO STA (16:30)
[2023-10-28 20:07] LABS: Glucose,Whole Blood 135 mg/dL (70-110)
[2023-10-29 06:13] LABS: Glucose,Whole Blood 135 mg/dL (70-110)
[2023-10-29] MEDS: METOPROLOL SUCCINATE (ER) 50 MG TAB.ER.24H PO SCH (07:43)
[2023-10-29 08:30] LABS: African American GFR (CKD) 90 (>60 ml/min/1.73 sqM); Anion Gap 8 mmol/L; Blood Urea Nitrogen 18 mg/dL (9-20); Calcium 8.7 mg/dL (8.4-10.2); Carbon Dioxide 31 mmol/L (22-30); Chloride 101 mmol/L (98-107); Glucose 108 mg/dL (74-99); Magnesium 1.5 mg/dL (1.6-2.3); Non-African American GFR(CKD) 78 (>60 ml/min/1.73 sqM); Potassium 3.2 mmol/L (3.5-5.1); Sodium 140 mmol/L (137-145)
[2023-10-29] MEDS: MAGNESIUM SULFATE-D5W PMX 1 GM in DEXTROSE/WATER 1 100ML.BAG IVPB SCH (09:07)
[2023-10-29] MEDS: POTASSIUM CHLORIDE ER 20 MEQ TAB.ER PO SCH (09:07)
[2023-10-29] MEDS ORDERED: DEXTROSE 50% SYRINGE 50 ML IVP PRN ×2 (09:56)
--- NOTE | 2023-10-29 11:23 | P.PN ---
Subjective HISTORY OF PRESENT ILLNESS: This is a 63-year-old male with a past medical history significant for fibrillation, coronary artery disease with previous stenting, hypertension, hyperlipidemia, diabetes, congestive heart failure, and obesity. Patient follows with a boat loader out of town, Dr. Whittington. However he states he has not seen him in a few years. We have been asked to see the patient in consultation for congestive heart failure. Patient examined at the bedside in the emergency room. Patient presented to the hospital with a chief complaint of increased edema. He states over the past 2 weeks he has noticed a lot of swelling in his legs and thighs. He states he usually only has swelling on the top of his feet. He denies gaining any weight recently. He states he has not been waking up at night short of breath. He does report having a nonproductive cough but states he feels as though he has a head cold currently. He denies any shortness of breath at rest but does report shortness of breath with mild exertion such as walking. He denied having any chest pain or pressure. The patient does have a history of CAD. He states he has had 4 stents placed, most recent was a few years ago. He believes these were performed at [facility]. Patient states he has been taking aspirin and Plavix on an outpatient basis. He also has a history of atrial fibrillation. He states to his knowledge he was last in atrial fibrillation about 3 years ago. However he denies feeling any palpitations or flip-flopping and is unsure if he has been in atrial fibrillation or not recently. At the time of examination, bedside telemetry reveals atrial fibrillation with controlled ventricular rate. Patient states he has been anticoagulated with Xarelto. He denies any history of CVA/TIA. DIAGNOSTICS: - EKG reveals atrial fibrillation with right bundle branch block. - Chest xray negative for acute process. - Laboratory data: WBC 8.1. Hemoglobin 15.4. Platelet count 248. Sodium 142. Potassium 3.1. BUN 16. Creatinine 1.08. Troponin negative x 3. proBNP 3740. - Current home cardiac medications include lisinopril 40 mg daily, nifedipine 90 mg daily, Lasix 40 mg daily, Plavix 75 mg daily, Lipitor 40 mg daily, aspirin 81 mg daily. Patient also reports taking Xarelto however this is not on his home medication list.. 10/27/2023 Patient examined this morning at the bedside. Patient denies chest pain or pressure. Currently denies SOB. He continues to have lower extremity edema. He remains on IV lasix. Echocardiogram completed revealing severely impaired LV function with an EF between 25 and 30% with global hypokinesia, mild to moderate MR and mild to moderate tricuspid regurgitation. Patient is unsure if he has a history of cardiomyopathy. Vital signs are stable. Records received from [facility]. Patient did undergo angioplasty without stenting of the RCA in 2018. Most recent from [facility] was in 2019 and patients EF was normal at that time. Still awaiting records from [facility]. 10/28/2023 Patient examined this morning. He is sitting up in the chair. He continues to report shortness of breath although improving. He remains on IV Lasix 40 mg every 8 hours. Kidney function remained stable. Creatinine today 1.24. He denies any chest pain or pressure. 10/29/2023 Patient examined this morning at the bedside. He is sitting on the side of the bed. Patient denies chest pain or pressure. He reports mild shortness of breath this morning. He states he is unable to lay flat in bed without developing shortness of breath. He continues to have lower extremity edema although improving. Creatinine is stable today at 1.02. Potassium low at 3.2. Magnesium low at 1.5. These are both being supplemented. Per case management, patient's co-pay for Entresto would be $40.64. Discussed this with the patient who is agreeable to begin Entresto. PHYSICAL EXAM: VITAL SIGNS: Reviewed. GENERAL: Well-developed in no acute distress. HEENT: Head is normocephalic. Pupils are equal, round. Sclerae anicteric. Mucous membranes of the mouth are moist. Neck supple. No JVD or thyromegaly LUNGS: Respirations even and unlabored. Lungs diminished bilaterally. HEART: Irregular rate and rhythm. S1 and S2 heard. Systolic murmur noted. ABDOMEN: Soft. Nondistended. Nontender. EXTREMITIES: Normal range of motion. No clubbing or cyanosis. Peripheral pulses intact. 2-3+ bilateral lower extremity edema NEUROLOGIC: Awake and alert. Oriented x 3. ASSESSMENT: Acute on chronic heart failure, EF 25 to 30% Cardiomyopathy, unsure if acute or chronic, awaiting records from outside facility Atrial fibrillation with controlled ventricular rate, duration unknown, paroxysmal versus persistent Coronary artery disease with previous stenting x 4, details unknown at this time Right bundle branch block Hypertension Hyperlipidemia Diabetes Obesity: BMI 36.6 Hypomagnesemia Hypokalemia PLAN: Continue current cardiac medications Increase metoprolol succinate to 50 mg daily Continue IV Lasix 40 mg every 8 hours Daily weights, accurate intake and output, and monitoring of kidney function Discontinue lisinopril. Begin Entresto 10/31/2023 at 9 AM. Patient agreeable to $40.64 co-pay Patient will require cardiac cath due to cardiomyopathy once patients volume status improves. Timing to be determined. Inpatient versus outpatient. Further recommendations pending patient course Nurse practitioner note has been reviewed by physician. Signing provider agrees with the documented findings, assessment, and plan of care documented by SEVERITY OF ILLNESS COORDINATOR as a scribe. Objective - Vital Signs Vital signs: Vital Signs Temp 98 F 10/29/23 08:00 Pulse 75 10/29/23 08:00 Resp 18 10/29/23 08:00 BP 146/97 10/29/23 08:00 Pulse Ox 96 10/29/23 08:44 FiO2 Intake & Output 10/28/23 10/29/23 10/29/23 18:59 06:59 18:59 Intake Total 476 360 240 Output Total 1575 1100 750 Balance -1099 -740 -510 Intake: Oral 476 360 240 Output: Urine 1575 1100 750 Other: Voiding Method Toilet Toilet Toilet Urinal # Voids 6 - Labs CBC & Chem 7: 10/27/23 08:36 10/29/23 07:18 Labs: Abnormal Lab Results - Last 24 Hours (Table) 10/28/23 10/28/23 10/28/23 Range/Units 08:07 12:56 15:56 Potassium (3.5-5.1) mmol/L Carbon Dioxide (22-30) mmol/L Glucose (74-99) mg/dL POC Glucose (mg/dL) 130 H 124 H (70-110) mg/dL Hemoglobin A1c 6.5 H (<=6.0) % Magnesium (1.6-2.3) mg/dL 10/28/23 10/29/23 10/29/23 Range/Units 20:00 06:12 07:18 Potassium 3.2 L (3.5-5.1) mmol/L Carbon Dioxide 31 H (22-30) mmol/L Glucose 108 H (74-99) mg/dL POC Glucose (mg/dL) 135 H 135 H (70-110) mg/dL Hemoglobin A1c (<=6.0) % Magnesium 1.5 L (1.6-2.3) mg/dL
[2023-10-29] MEDS: INSULIN ASPART (NovoLOG) 100 UNIT/ML VIAL SQ SCH (11:36)
[2023-10-29 11:37] LABS: Glucose,Whole Blood 169 mg/dL (70-110)
--- NOTE | 2023-10-29 13:30 | P.PN ---
Subjective Progress Note Date: 10/29/23 63 years old male with past medical history of multiple medical problems as below including history of coronary artery disease s/p 4 stents. His PCP is Dr. rodriguez , also home about 1 week ago and given some antibiotic for his congested nose but with no much relief. Patient presents because of increased leg swelling in both legs over more than a week and he thinks is because to his abdomen which looks hard. Is been complaining from shortness of breath with walking, however no orthopnea or paroxysmal nocturnal dyspnea He denies chest pain but complains from little cough and phlegm and congested nose with sneezing but no sore throat for also more than a week Patient denies change in urine or bowel habits, he has little Headache but no weakness or numbness Patient denies smoking alcohol or illicit drugs. He is hemodynamically stable. He has unremarkable CBC, BMP, liver enzymes except for mild hypokalemia and hypomagnesemia INR 1.3 Troponin -0.09 and 0.0 24 Urinalysis negative EKG showing atrial fibrillation with a rate of 86 Chest x-ray is negative proBNP is elevated 3740 Patient started on IV Lasix twice daily 10/27/2023 Patient feels improvement, his upper respiratory symptoms and coughing and headache are improving No significant dyspnea or chest pain His main problem is bilateral leg swelling, he remains on IV Lasix 80 mg 3 times daily, he is made about 1400 mL of urine output since kiln charger. Echocardiogram showing severely dilated right ventricle and low ejection fraction of the left ventricle 25 to 30% going on with his systolic CHF. Also his heart is controlled and he was started on Xarelto while Plavix was discontinued. Patient continued with aspirin. Patient informed with this recommendation and risk of bleeding explained for him extensively and he verbalized understanding and acceptance Blood pressure is better controlled after switching his nifedipine and to metoprolol plus Aldactone and Farxiga. TSH level was high on admission more than 10 but T4 is normal therefore we are going to recheck his thyroid function test tomorrow. 08/30/2023 Patient keep diuresing well, he peed 4 L yesterday He lost 11 pounds since admission He feels improvement Patient still has moderate bilateral leg swelling also improving Patient wants to stay in the hospital and continue diuresis. Currently on IV Lasix 40 mg 3 times a day he is on aspirin 81 mg and Xarelto added. Consult piano case maker for Xarelto co-pay 10/29/23: Dr Gracia assumed care : Patient seen and evaluated at bedside, vitals reviewed, blood work reviewed potassium 3.2 magnesium 1.5 replaced continue pat ient on diuretics receiving IV Lasix, did have episode of epistaxis GENERAL: The patient is alert and oriented x3, not in any acute distress. Well developed, well nourished. HEENT: Pupils are round and equally reacting to light. EOMI. No scleral icterus. No conjunctival pallor. Normocephalic, atraumatic. No pharyngeal erythema. No thyromegaly. CARDIOVASCULAR: S1 and S2 present. No murmurs, rubs, or gallops. PULMONARY: Chest is clear to auscultation, no wheezing , no crackles. ABDOMEN: Soft, nontender, nondistended, normoactive bowel sounds. No palpable organomegaly. MUSCULOSKELETAL: No joint swelling or deformity. -EXTREMITIES: No cyanosis, clubbing,. 2-3+ bilateral pitting leg edema. NEUROLOGICAL: Gross neurological examination did not reveal any focal deficits. SKIN: No rashes. no petechiae. Assessment and plan * Acute on chronic systolic CHF exacerbation with increased bilateral lower extremity swelling. EF 25 to 30% * Chronic atrial fibrillation with controlled heart rate. Started on Xarelto * Coronary artery disease s/p 4 stents * Diabetes mellitus type 2 * Hypertension, uncontrolled on admission, currently improved * Chronic kidney disease stage II * Obesity with BMI of 36 Plan: * In regards to congestive heart failure, cardiology consulted continue patient on Lasix continue to monitor intake and output and daily weights, continue Farxiga, continue metoprolol, Entresto and Aldactone * In regards to coronary artery disease following patient will need cardiac catheterization once c volume status improves, continue medical management, patient remains on Xarelto * In regards to history of atrial fibrillation continue patient on Xarelto as well as metoprolol * Diabetes mellitus HbA1c 6.5 continue Accu-Cheks ACHS continue correctional insulin monitor for hypoglycemia Objective - Vital Signs Vital signs: Vital Signs Temp 98 F 10/29/23 08:00 Pulse 75 10/29/23 08:00 Resp 18 10/29/23 08:00 BP 146/97 10/29/23 08:00 Pulse Ox 96 10/29/23 08:44 FiO2 Intake & Output 10/28/23 10/29/23 10/29/23 18:59 06:59 18:59 Intake Total 476 360 Output Total 1575 1100 450 Balance -1099 -740 -450 Intake: Oral 476 360 Output: Urine 1575 1100 450 Other: Voiding Method Toilet Toilet Toilet Urinal # Voids 6 - Labs CBC & Chem 7: 10/27/23 08:36 10/29/23 07:18 Labs: Abnormal Lab Results - Last 24 Hours (Table) 10/28/23 10/28/23 10/28/23 Range/Units 08:07 12:56 15:56 Potassium (3.5-5.1) mmol/L Carbon Dioxide (22-30) mmol/L Glucose (74-99) mg/dL POC Glucose (mg/dL) 130 H 124 H (70-110) mg/dL Hemoglobin A1c 6.5 H (<=6.0) % Magnesium (1.6-2.3) mg/dL 10/28/23 10/29/23 10/29/23 Range/Units 20:00 06:12 07:18 Potassium 3.2 L (3.5-5.1) mmol/L Carbon Dioxide 31 H (22-30) mmol/L Glucose 108 H (74-99) mg/dL POC Glucose (mg/dL) 135 H 135 H (70-110) mg/dL Hemoglobin A1c (<=6.0) % Magnesium 1.5 L (1.6-2.3) mg/dL
[2023-10-29 16:18] LABS: Glucose,Whole Blood 152 mg/dL (70-110)
[2023-10-29] MEDS: SODIUM CHLORIDE 0.65% NASAL SPRAY 44 ML BTL NASAL SCH (17:07)
[2023-10-29 19:36] LABS: Glucose,Whole Blood 171 mg/dL (70-110)
[2023-10-30 05:51] LABS: Glucose,Whole Blood 135 mg/dL (70-110)
[2023-10-30] MEDS: ACETAMINOPHEN TAB 325 MG TAB PO PRN (06:49)
[2023-10-30 09:10] LABS: African American GFR (CKD) 74 (>60 ml/min/1.73 sqM); Anion Gap 7 mmol/L; Blood Urea Nitrogen 19 mg/dL (9-20); Calcium 8.8 mg/dL (8.4-10.2); Carbon Dioxide 35 mmol/L (22-30); Chloride 97 mmol/L (98-107); Glucose 156 mg/dL (74-99); Magnesium 1.8 mg/dL (1.6-2.3); Non-African American GFR(CKD) 64 (>60 ml/min/1.73 sqM); Potassium 3.6 mmol/L (3.5-5.1); Sodium 139 mmol/L (137-145)
--- NOTE | 2023-10-30 10:21 | P.PN ---
Subjective HISTORY OF PRESENT ILLNESS: This is a 63-year-old male with a past medical history significant for fibrillation, coronary artery disease with previous stenting, hypertension, hyperlipidemia, diabetes, congestive heart failure, and obesity. Patient follows with a carbon brushes assembler out of town, Dr. Whittington. However he states he has not seen him in a few years. We have been asked to see the patient in consultation for congestive heart failure. Patient examined at the bedside in the emergency room. Patient presented to the hospital with a chief complaint of increased edema. He states over the past 2 weeks he has noticed a lot of swelling in his legs and thighs. He states he usually only has swelling on the top of his feet. He denies gaining any weight recently. He states he has not been waking up at night short of breath. He does report having a nonproductive cough but states he feels as though he has a head cold currently. He denies any shortness of breath at rest but does report shortness of breath with mild exertion such as walking. He denied having any chest pain or pressure. The patient does have a history of CAD. He states he has had 4 stents placed, most recent was a few years ago. He believes these were performed at [facility]. Patient states he has been taking aspirin and Plavix on an outpatient basis. He also has a history of atrial fibrillation. He states to his knowledge he was last in atrial fibrillation about 3 years ago. However he denies feeling any palpitations or flip-flopping and is unsure if he has been in atrial fibrillation or not recently. At the time of examination, bedside telemetry reveals atrial fibrillation with controlled ventricular rate. Patient states he has been anticoagulated with Xarelto. He denies any history of CVA/TIA. DIAGNOSTICS: - EKG reveals atrial fibrillation with right bundle branch block. - Chest xray negative for acute process. - Laboratory data: WBC 8.1. Hemoglobin 15.4. Platelet count 248. Sodium 142. Potassium 3.1. BUN 16. Creatinine 1.08. Troponin negative x 3. proBNP 3740. - Current home cardiac medications include lisinopril 40 mg daily, nifedipine 90 mg daily, Lasix 40 mg daily, Plavix 75 mg daily, Lipitor 40 mg daily, aspirin 81 mg daily. Patient also reports taking Xarelto however this is not on his home medication list.. 10/27/2023 Patient examined this morning at the bedside. Patient denies chest pain or pressure. Currently denies SOB. He continues to have lower extremity edema. He remains on IV lasix. Echocardiogram completed revealing severely impaired LV function with an EF between 25 and 30% with global hypokinesia, mild to moderate MR and mild to moderate tricuspid regurgitation. Patient is unsure if he has a history of cardiomyopathy. Vital signs are stable. Records received from [facility]. Patient did undergo angioplasty without stenting of the RCA in 2018. Most recent from [facility] was in 2019 and patients EF was normal at that time. Still awaiting records from [facility]. 10/28/2023 Patient examined this morning. He is sitting up in the chair. He continues to report shortness of breath although improving. He remains on IV Lasix 40 mg every 8 hours. Kidney function remained stable. Creatinine today 1.24. He denies any chest pain or pressure. 10/29/2023 Patient examined this morning at the bedside. He is sitting on the side of the bed. Patient denies chest pain or pressure. He reports mild shortness of breath this morning. He states he is unable to lay flat in bed without developing shortness of breath. He continues to have lower extremity edema although improving. Creatinine is stable today at 1.02. Potassium low at 3.2. Magnesium low at 1.5. These are both being supplemented. Per case management, patient's co-pay for Entresto would be $40.64. Discussed this with the patient who is agreeable to begin Entresto. 10/30/2023 Patient examined this morning at the bedside. Patient states he had a rough night overnight. He reports having leg cramps. He remains on IV Lasix. Kidney function is stable today. Creatinine 1.2. Patient states his breathing has improved today. He states he is able to lay flat in bed. He denies any chest pain or pressure. Patient's blood pressure is slightly elevated this morning. However his lisinopril has been discontinued in anticipation for initiation of Entresto tomorrow. PHYSICAL EXAM: VITAL SIGNS: Reviewed. GENERAL: Well-developed in no acute distress. HEENT: Head is normocephalic. Pupils are equal, round. Sclerae anicteric. Mucous membranes of the mouth are moist. Neck supple. No JVD or thyromegaly LUNGS: Respirations even and unlabored. Lungs diminished bilaterally. HEART: Irregular rate and rhythm. S1 and S2 heard. Systolic murmur noted. ABDOMEN: Soft. Nondistended. Nontender. EXTREMITIES: Normal range of motion. No clubbing or cyanosis. Peripheral pulses intact. 2-3+ bilateral lower extremity edema NEUROLOGIC: Awake and alert. Oriented x 3. ASSESSMENT: Acute on chronic heart failure, EF 25 to 30% Cardiomyopathy, unsure if acute or chronic, awaiting records from outside facility Atrial fibrillation with controlled ventricular rate, duration unknown, paroxysmal versus persistent Coronary artery disease with previous stenting x 4, details unknown at this time Right bundle branch block Hypertension Hyperlipidemia Diabetes Obesity: BMI 36.6 Hypomagnesemia Hypokalemia PLAN: Continue current cardiac medications Increase metoprolol succinate to 50 mg daily Continue IV Lasix 40 mg every 8 hours Daily weights, accurate intake and output, and monitoring of kidney function Lisinopril discontinued yesterday. Begin Entresto 10/31/2023 at 9 AM. Patient agreeable to $40.64 co-pay Anticipate patient's blood pressures to be slightly elevated today. No changes to medication regimen today as patient is going to start Entresto tomorrow. Patient will require cardiac cath due to cardiomyopathy once patients volume status improves. Timing to be determined. Inpatient versus outpatient. Further recommendations pending patient course Nurse practitioner note has been reviewed by physician. Signing provider agrees with the documented findings, assessment, and plan of care documented by CDL INSTRUCTOR as a scribe. Objective - Vital Signs Vital signs: Vital Signs Temp 98.2 F 10/30/23 08:00 Pulse 76 10/30/23 08:00 Resp 18 10/30/23 08:00 BP 147/89 10/30/23 08:00 Pulse Ox 90 L 10/30/23 08:00 FiO2 Intake & Output 10/29/23 10/30/23 10/30/23 18:59 06:59 18:59 Intake Total 898 462 Output Total 1875 1400 200 Balance -977 -1400 262 Weight 127.1 kg Intake: Oral 898 462 Output: Urine 1875 1400 200 Other: Voiding Method Toilet Toilet Toilet Urinal Urinal Urinal # Voids 1 - Labs CBC & Chem 7: 10/27/23 08:36 10/30/23 08:34 Labs: Abnormal Lab Results - Last 24 Hours (Table) 10/29/23 10/29/23 10/29/23 Range/Units 11:35 16:16 19:34 Chloride (98-107) mmol/L Carbon Dioxide (22-30) mmol/L Glucose (74-99) mg/dL POC Glucose (mg/dL) 169 H 152 H 171 H (70-110) mg/dL 10/30/23 10/30/23 Range/Units 05:47 08:34 Chloride 97 L (98-107) mmol/L Carbon Dioxide 35 H (22-30) mmol/L Glucose 156 H (74-99) mg/dL POC Glucose (mg/dL) 135 H (70-110) mg/dL
[2023-10-30 12:07] LABS: Glucose,Whole Blood 114 mg/dL (70-110)
--- NOTE | 2023-10-30 12:41 | P.PN ---
Subjective Progress Note Date: 10/30/23 63 years old male with past medical history of multiple medical problems as below including history of coronary artery disease s/p 4 stents. His PCP is Dr. rodriguez , also home about 1 week ago and given some antibiotic for his congested nose but with no much relief. Patient presents because of increased leg swelling in both legs over more than a week and he thinks is because to his abdomen which looks hard. Is been complaining from shortness of breath with walking, however no orthopnea or paroxysmal nocturnal dyspnea He denies chest pain but complains from little cough and phlegm and congested nose with sneezing but no sore throat for also more than a week Patient denies change in urine or bowel habits, he has little Headache but no weakness or numbness Patient denies smoking alcohol or illicit drugs. He is hemodynamically stable. 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 Echocardiogram showing severely dilated right ventricle and low ejection fraction of the left ventricle 25 to 30% going on with his systolic CHF. Also his heart is controlled and he was started on Xarelto while Plavix was discontinued. Patient continued with aspirin. Patient informed with this recommendation and risk of bleeding explained for him extensively and he verbalized understanding and acceptance Blood pressure is better controlled after switching his nifedipine and to metoprolol plus Aldactone and Farxiga. TSH level was high on admission more than 10 but T4 is normal therefore we are going to recheck his thyroid function test tomorrow. 08/30/2023 Patient keep diuresing well, he peed 4 L yesterday He lost 11 pounds since admission He feels improvement Patient still has moderate bilateral leg swelling also improving Patient wants to stay in the hospital and continue diuresis. Currently on IV Lasix 40 mg 3 times a day he is on aspirin 81 mg and Xarelto added. Consult machine adjuster leader case trim for Xarelto co-pay 10/29/23: Dr rGacia assumed care : Patient seen and evaluated at bedside, vitals reviewed, blood work reviewed potassium 3.2 magnesium 1.5 replaced continue pat ient on diuretics receiving IV Lasix, did have episode of epistaxis 10/30/23: Patient seen and evaluated bedside, electrolytes reviewed renal function reviewed vitals reviewed patient remains on room air continue on magnesium supplementation. Patient states breathing has improved however lower extremity edema persist GENERAL: The patient is alert and oriented x3, not in any acute distress. Well developed, well nourished. HEENT: Pupils are round and equally reacting to light. EOMI. No scleral icterus. No pharyngeal erythema. No thyromegaly. CARDIOVASCULAR: S1 and S2 present. No murmurs, rubs, or gallops. PULMONARY: Chest is clear to auscultation, no wheezing , no crackles. ABDOMEN: Soft, nontender, nondistended, normoactive bowel sounds. No palpable organomegaly. MUSCULOSKELETAL: No joint swelling or deformity. EXTREMITIES: No cyanosis, clubbing,. 2 + bilateral pitting leg edema. NEUROLOGICAL: Gross neurological examination did not reveal any focal deficits. Assessment and plan * Acute on chronic systolic CHF exacerbation with increased bilateral lower extremity swelling. EF 25 to 30% * Chronic atrial fibrillation with controlled heart rate. Started on Xarelto * Coronary artery disease s/p 4 stents * Diabetes mellitus type 2 * Hypertension, uncontrolled on admission, currently improved * Chronic kidney disease stage II * Obesity with BMI of 36 Plan: * In regards to congestive heart failure, cardiology consulted continue patient on Lasix continue to monitor intake and output and daily weights, continue Farxiga, continue metoprolol, Entresto and Aldactone * In regards to coronary artery disease following patient will need cardiac catheterization once volume status improves, continue medical management, patient remains on Xarelto * In regards to history of atrial fibrillation continue patient on Xarelto as well as metoprolol * Diabetes mellitus HbA1c 6.5 continue Accu-Cheks ACHS continue correctional insulin monitor for hypoglycemia Objective - Vital Signs Vital signs: Vital Signs Temp 98.2 F 10/30/23 08:00 Pulse 76 10/30/23 08:00 Resp 18 10/30/23 08:00 BP 147/89 10/30/23 08:00 Pulse Ox 90 L 10/30/23 08:00 FiO2 Intake & Output 10/29/23 10/30/23 10/30/23 18:59 06:59 18:59 Intake Total 898 462 Output Total 1875 1400 200 Balance -977 -1400 262 Weight 127.1 kg Intake: Oral 898 462 Output: Urine 5 1400 200 Other: Voiding Method Toilet Toilet Toilet Urinal Urinal Urinal # Voids 1 - Labs CBC & Chem 7: 10/27/23 08:36 10/30/23 08:34 Labs: Abnormal Lab Results - Last 24 Hours (Table) 10/29/23 10/29/23 10/29/23 Range/Units 11:35 16:16 19:34 Chloride (98-107) mmol/L Carbon Dioxide (22-30) mmol/L Glucose (74-99) mg/dL POC Glucose (mg/dL) 169 H 152 H 171 H (70-110) mg/dL 10/30/23 10/30/23 Range/Units 05:47 08:34 Chloride 97 L (98-107) mmol/L Carbon Dioxide 35 H (22-30) mmol/L Glucose 156 H (74-99) mg/dL POC Glucose (mg/dL) 135 H (70-110) mg/dL
[2023-10-30 16:42] LABS: Glucose,Whole Blood 153 mg/dL (70-110)
[2023-10-30 20:19] LABS: Glucose,Whole Blood 147 mg/dL (70-110)
[2023-10-30] MEDS ORDERED: SACUBITRIL/VALSARTAN 24 MG-26 MG TABLET PO SCH (21:00)
[2023-10-31] MEDS: HYDROcodone/APAP 5-325MG 1 EACH TAB PO STA (03:21)
[2023-10-31 06:05] LABS: Glucose,Whole Blood 119 mg/dL (70-110)
[2023-10-31] MEDS: ERGOCALCIFEROL 1,250 MCG (50,000 IU) CAPSULE PO SCH (09:17)
[2023-10-31] MEDS: SACUBITRIL/VALSARTAN 24 MG-26 MG TABLET PO SCH (09:17)
[2023-10-31 10:09] LABS: Anisocytosis Slight; HCT 48.3 % (39.0-53.0); HGB 15.2 gm/dL (13.0-17.5); MCH 27.4 pg (25.0-35.0); MCHC 31.4 g/dL (31.0-37.0); MCV 87.5 fL (80.0-100.0); Mean Platelet Volume 9.4; Platelet Count 213 k/uL (150-450); RBC 5.53 m/uL (4.30-5.90); RDW 17.3 % (11.5-15.5)
[2023-10-31 10:48] LABS: African American GFR (CKD) 74 (>60 ml/min/1.73 sqM); Anion Gap 8 mmol/L; Blood Urea Nitrogen 23 mg/dL (9-20); Calcium 8.9 mg/dL (8.4-10.2); Carbon Dioxide 31 mmol/L (22-30); Chloride 99 mmol/L (98-107); Glucose 143 mg/dL (74-99); Magnesium 1.8 mg/dL (1.6-2.3); Non-African American GFR(CKD) 64 (>60 ml/min/1.73 sqM); Potassium 3.3 mmol/L (3.5-5.1); Sodium 138 mmol/L (137-145)
[2023-10-31 11:35] LABS: Glucose,Whole Blood 120 mg/dL (70-110)
--- NOTE | 2023-10-31 13:12 | P.PN ---
Subjective Progress Note Date: 10/31/23 63 years old male with past medical history of multiple medical problems as below including history of coronary artery disease s/p 4 stents. His PCP is Dr. rodriguez , also home about 1 week ago and given some antibiotic for his congested nose but with no much relief. Patient presents because of increased leg swelling in both legs over more than a week and he thinks is because to his abdomen which looks hard. Is been complaining from shortness of breath with walking, however no orthopnea or paroxysmal nocturnal dyspnea He denies chest pain but complains from little cough and phlegm and congested nose with sneezing but no sore throat for also more than a week Patient denies change in urine or bowel habits, he has little Headache but no weakness or numbness Patient denies smoking alcohol or illicit drugs. He is hemodynamically stable. 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 Echocardiogram showing severely dilated right ventricle and low ejection fraction of the left ventricle 25 to 30% going on with his systolic CHF. Also his heart is controlled and he was started on Xarelto while Plavix was discontinued. Patient continued with aspirin. Patient informed with this recommendation and risk of bleeding explained for him extensively and he verbalized understanding and acceptance Blood pressure is better controlled after switching his nifedipine and to metoprolol plus Aldactone and Farxiga. TSH level was high on admission more than 10 but T4 is normal therefore we are going to recheck his thyroid function test tomorrow. 08/30/2023 Patient keep diuresing well, he peed 4 L yesterday He lost 11 pounds since admission He feels improvement Patient still has moderate bilateral leg swelling also improving Patient wants to stay in the hospital and continue diuresis. Currently on IV Lasix 40 mg 3 times a day he is on aspirin 81 mg and Xarelto added. Consult case management assistant for Xarelto co-pay 10/29/23: Dr Gracia assumed care : Patient seen and evaluated at bedside, vitals reviewed, blood work reviewed potassium 3.2 magnesium 1.5 replaced continue pat ient on diuretics receiving IV Lasix, did have episode of epistaxis 10/30/23: Patient seen and evaluated bedside, electrolytes reviewed renal function reviewed vitals reviewed patient remains on room air continue on magnesium supplementation. Patient states breathing has improved however lower extremity edema persist 10/31/23: Patient seen and evaluated at bedside, patient been admitted for congestive heart failure, patient been treated with IV Lasix continue to monitor intake and output, plan to initiate Entresto, will need cardiac catheterization inpatient versus outpatient based on cardiology discretion. Patient placed on 2 L of oxygen GENERAL: The patient is alert and oriented x3, not in any acute distress. Well developed, well nourished. Nasal cannula in place HEENT: Pupils are round and equally reacting to light. EOMI. No scleral icterus. No pharyngeal erythema. No thyromegaly. CARDIOVASCULAR: S1 and S2 present. No murmurs, rubs, or gallops. PULMONARY: Chest is clear to auscultation, no wheezing , no crackles. ABDOMEN: Soft, nontender, nondistended, normoactive bowel sounds. No palpable organomegaly. MUSCULOSKELETAL: No joint swelling or deformity. EXTREMITIES: No cyanosis, clubbing,. 2 + bilateral pitting leg edema. NEUROLOGICAL: Gross neurological examination did not reveal any focal deficits. Assessment and plan * Acute on chronic systolic CHF exacerbation with increased bilateral lower extremity swelling. EF 25 to 30% * Acute hypoxemic respiratory failure from CHF * Chronic atrial fibrillation with controlled heart rate. Started on Xarelto * Coronary artery disease s/p 4 stents * Diabetes mellitus type 2 * Hypertension, uncontrolled on admission, currently improved * Chronic kidney disease stage II * Obesity with BMI of 36 Plan: * In regards to congestive heart failure, cardiology consulted continue patient on Lasix continue to monitor intake and output and daily weights, continue Farxiga, continue metoprolol, Entresto and Aldactone * In regards to coronary artery disease following patient will need cardiac catheterization once volume status improves, continue medical management, patient remains on Xarelto * In regards to history of atrial fibrillation continue patient on Xarelto as well as metoprolol * Diabetes mellitus HbA1c 6.5 continue Accu-Cheks ACHS continue correctional insulin monitor for hypoglycemia Objective - Vital Signs Vital signs: Vital Signs Temp 98.2 F 10/31/23 03:10 Pulse 93 10/31/23 03:10 Resp 20 10/31/23 03:10 BP 158/100 10/31/23 05:53 Pulse Ox 92 L 10/31/23 03:10 FiO2 Intake & Output 10/30/23 10/31/23 10/31/23 18:59 06:59 18:59 Intake Total 1182 240 Output Total 1200 300 300 Balance -18 -300 -60 Weight 128 kg Intake: Oral 1182 240 Output: Urine 1200 300 300 Other: Voiding Method Toilet Toilet Urinal Urinal # Voids 1 # Bowel Movements 1 - Labs CBC & Chem 7: 10/31/23 09:33 10/31/23 09:33 Labs: Abnormal Lab Results - Last 24 Hours (Table) 10/30/23 10/30/23 10/30/23 Range/Units 08:34 12:01 16:40 POC Glucose (mg/dL) 114 H 153 H (70-110) mg/dL Hemoglobin A1c 6.5 H (<=6.0) % 10/30/23 10/31/23 Range/Units 20:18 06:03 POC Glucose (mg/dL) 147 H 119 H (70-110) mg/dL Hemoglobin A1c (<=6.0) %
[2023-10-31] MEDS: POTASSIUM CHLORIDE ER 20 MEQ TAB.ER PO SCH (13:21)
--- NOTE | 2023-10-31 14:12 | P.PN ---
Subjective Progress Note Date: 10/31/23 HISTORY OF PRESENT ILLNESS: This is a 63-year-old male with a past medical history significant for fibr illation, coronary artery disease with previous stenting, hypertension, hyperlipidemia, diabetes, congestive heart failure, and obesity. Patient follows with a public utilities sales representative out of town, Dr. Whittington. However he states he has not seen him in a few years. We have been asked to see the patient in consultation for congestive heart failure. Patient examined at the bedside in the emergency room. Patient presented to the hospital with a chief complaint of increased edema. He states over the past 2 weeks he has noticed a lot of swelling in his legs and thighs. He states he usually only has swelling on the top of his feet. He denies gaining any weight recently. He states he has not been waking up at night short of breath. He does report having a nonproductive cough but states he feels as though he has a head cold currently. He denies any shortness of breath at rest but does report shortness of breath with mild exertion such as walking. He denied having any chest pain or pressure. The patient does have a history of CAD. He states he has had 4 stents placed, most recent was a few years ago. He believes these were performed at [facility]. Patient states he has been taking aspirin and Plavix on an outpatient basis. He also has a history of atrial fibrillation. He states to his knowledge he was last in atrial fibrillation about 3 years ago. However he denies feeling any pa lpitations or flip-flopping and is unsure if he has been in atrial fibrillation or not recently. At the time of examination, bedside telemetry reveals atrial fibrillation with controlled ventricular rate. Patient states he has been anticoagulated with Xarelto. He denies any history of CVA/TIA. DIAGNOSTICS: - EKG reveals atrial fibrillation with right bundle branch block. - Chest xray negative for acute process. - Laboratory data: WBC 8.1. Hemoglobin 15.4. Platelet count 248. Sodium 142. Potassium 3.1. BUN 16. Creatinine 1.08. Troponin negative x 3. proBNP 3740. - Current home cardiac medications include lisinopril 40 mg daily, nifedipine 90 mg daily, Lasix 40 mg daily, Plavix 75 mg daily, Lipitor 40 mg daily, aspirin 81 mg daily. Patient also reports taking Xarelto however this is not on his home medication list.. 10/27/2023 Patient examined this morning at the bedside. Patient denies chest pain or pressure. Currently denies SOB. He continues to have lower extremity edema. He remains on IV lasix. Echocardiogram completed revealing severely impaired LV function with an EF between 25 and 30% with global hypokinesia, mild to moderate MR and mild to moderate tricuspid regurgitation. Patient is unsure if he has a history of cardiomyopathy. Vital signs are stable. Records received from [facility]. Patient did undergo angioplasty without stenting of the RCA in 2018. Most recent from [facility] was in 2019 and patients EF was normal at that time. Still awaiting records from [facility]. 10/28/2023 Patient examined this morning. He is sitting up in the chair. He continues to report shortness of breath although improving. He remains on IV Lasix 40 mg ev jessica 8 hours. Kidney function remained stable. Creatinine today 1.24. He denies any chest pain or pressure. 10/29/2023 Patient examined this morning at the bedside. He is sitting on the side of the bed. Patient denies chest pain or pressure. He reports mild shortness of breath this morning. He states he is unable to lay flat in bed without developing shortness of breath. He continues to have lower extremity edema although improving. Creatinine is stable today at 1.02. Potassium low at 3.2. Magnesium low at 1.5. These are both being supplemented. Per case management, patient's co-pay for Entresto would be $40.64. Discussed this with the patient who is agreeable to begin Entresto. 10/30/2023 Patient examined this morning at the bedside. Patient states he had a rough night overnight. He reports having leg cramps. He remains on IV Lasix. Kidney function is stable today. Creatinine 1.2. Patient states his breathing has improved today. He states he is able to lay flat in bed. He denies any chest pain or pressure. Patient's blood pressure is slightly elevated this morning. However his lisinopril has been discontinued in anticipation for initiation of Entresto tomorrow. 10/30 Patient is seen today in follow-up. Patient has been maintained on IV Lasix 40 mg every 8 hours. Patient has a negative fluid balance and documented weight loss. Lower extremity edema is improving. Repeat blood work reveals hemoglobin is 15.2. Potassium 3.3 and will be replaced, BUN 23, creatinine 1.2. Patient was started on Entresto this morning. Patient complains of generalized pain, no chest pain. Possible cardiac catheterization tomorrow. PHYSICAL EXAM: VITAL SIGNS: Reviewed. GENERAL: Well-developed in no acute distress. HEENT: Head is normocephalic. Pupils are equal, round. Sclerae anicteric. Mucous membranes of the mouth are moist. Neck supple. No JVD or thyromegaly LUNGS: Respirations even and unlabored. Lungs diminished bilaterally. HEART: Irregular rate and rhythm. S1 and S2 heard. Systolic murmur noted. ABDOMEN: Soft. Nondistended. Nontender. EXTREMITIES: No clubbing or cyanosis. Peripheral pulses intact. Minimal bilateral lower extremity edema NEUROLOGIC: Awake and alert. Oriented x 3. ASSESSMENT: Acute on chronic systolic heart failure, EF 25 to 30% Cardiomyopathy, unsure if acute or chronic, awaiting records from outside facility Atrial fibrillation with controlled ventricular rate, duration unknown, paroxysmal versus persistent Coronary artery disease with previous stenting x 4, details unknown at this time Right bundle branch block Hypertension Hyperlipidemia Diabetes Obesity: BMI 36.6 Hypomagnesemia Hypokalemia PLAN: Continue current cardiac medications Increase metoprolol succinate to 50 mg daily Continue IV Lasix 40 mg every 8 hours Daily weights, accurate intake and output, and monitoring of kidney function Increase Entresto to 49 mg / 51 mg twice daily Patient will require cardiac cath due to cardiomyopathy once patients volume status improves. Timing to be determined. Inpatient versus outpatient. N.p.o. after midnight for possible cardiac catheterization Further recommendations pending patient course Nurse practitioner note has been reviewed by physician. Signing provider agrees with the documented findings, assessment, and plan of care documented by BUS OR TRUCK GARAGE MECHANIC as a scribe. Objective - Vital Signs Vital signs: Vital Signs Temp 98 F 10/31/23 08:00 Pulse 75 10/31/23 08:00 Resp 18 10/31/23 08:00 BP 141/96 10/31/23 08:00 Pulse Ox 90 L 10/31/23 08:00 FiO2 Intake & Output 10/30/23 10/31/23 10/31/23 18:59 06:59 18:59 Intake Total 1182 880 Output Total 1200 300 900 Balance -18 -300 -20 Weight 128 kg Intake: Oral 1182 880 Output: Urine 1200 300 900 Other: Voiding Method Toilet Toilet Urinal Urinal # Voids 1 # Bowel Movements 1 - Labs CBC & Chem 7: 10/31/23 09:33 10/31/23 09:33 Labs: Abnormal Lab Results - Last 24 Hours (Table) 10/30/23 10/30/23 10/31/23 Range/Units 16:40 20:18 06:03 RDW (11.5-15.5) % Potassium (3.5-5.1) mmol/L Carbon Dioxide (22-30) mmol/L BUN (9-20) mg/dL Glucose (74-99) mg/dL POC Glucose (mg/dL) 153 H 147 H 119 H (70-110) mg/dL 10/31/23 10/31/23 10/31/23 Range/Units 09:33 09:33 11:33 RDW 17.3 H (11.5-15.5) % Potassium 3.3 L (3.5-5.1) mmol/L Carbon Dioxide 31 H (22-30) mmol/L BUN 23 H (9-20) mg/dL Glucose 143 H (74-99) mg/dL POC Glucose (mg/dL) 120 H (70-110) mg/dL
[2023-10-31 16:12] LABS: Glucose,Whole Blood 180 mg/dL (70-110)
[2023-10-31 20:25] LABS: Glucose,Whole Blood 136 mg/dL (70-110)
[2023-10-31] MEDS: SACUBITRIL/VALSARTAN 49 MG-51 MG TABLET PO SCH (21:38)
[2023-11-01 06:04] LABS: Glucose,Whole Blood 134 mg/dL (70-110)
[2023-11-01 12:00] LABS: Glucose,Whole Blood 121 mg/dL (70-110)
--- NOTE | 2023-11-01 15:29 | P.PN ---
Subjective Progress Note Date: 11/01/23 HISTORY OF PRESENT ILLNESS: This is a 63-year-old male with a past medical history significant for fibr illation, coronary artery disease with previous stenting, hypertension, hyperlipidemia, diabetes, congestive heart failure, and obesity. Patient follows with a respite worker out of town, Dr. Whittington. However he states he has not seen him in a few years. We have been asked to see the patient in consultation for congestive heart failure. Patient examined at the bedside in the emergency room. Patient presented to the hospital with a chief complaint of increased edema. He states over the past 2 weeks he has noticed a lot of swelling in his legs and thighs. He states he usually only has swelling on the top of his feet. He denies gaining any weight recently. He states he has not been waking up at night short of breath. He does report having a nonproductive cough but states he feels as though he has a head cold currently. He denies any shortness of breath at rest but does report shortness of breath with mild exertion such as walking. He denied having any chest pain or pressure. The patient does have a history of CAD. He states he has had 4 stents placed, most recent was a few years ago. He believes these were performed at [facility]. Patient states he has been taking aspirin and Plavix on an outpatient basis. He also has a history of atrial fibrillation. He states to his knowledge he was last in atrial fibrillation about 3 years ago. However he denies feeling any pa lpitations or flip-flopping and is unsure if he has been in atrial fibrillation or not recently. At the time of examination, bedside telemetry reveals atrial fibrillation with controlled ventricular rate. Patient states he has been anticoagulated with Xarelto. He denies any history of CVA/TIA. DIAGNOSTICS: - EKG reveals atrial fibrillation with right bundle branch block. - Chest xray negative for acute process. - Laboratory data: WBC 8.1. Hemoglobin 15.4. Platelet count 248. Sodium 142. Potassium 3.1. BUN 16. Creatinine 1.08. Troponin negative x 3. proBNP 3740. - Current home cardiac medications include lisinopril 40 mg daily, nifedipine 90 mg daily, Lasix 40 mg daily, Plavix 75 mg daily, Lipitor 40 mg daily, aspirin 81 mg daily. Patient also reports taking Xarelto however this is not on his home medication list.. 10/27/2023 Patient examined this morning at the bedside. Patient denies chest pain or pressure. Currently denies SOB. He continues to have lower extremity edema. He remains on IV lasix. Echocardiogram completed revealing severely impaired LV function with an EF between 25 and 30% with global hypokinesia, mild to moderate MR and mild to moderate tricuspid regurgitation. Patient is unsure if he has a history of cardiomyopathy. Vital signs are stable. Records received from [facility]. Patient did undergo angioplasty without stenting of the RCA in 2018. Most recent from [facility] was in 2019 and patients EF was normal at that time. Still awaiting records from [facility]. 10/28/2023 Patient examined this morning. He is sitting up in the chair. He continues to report shortness of breath although improving. He remains on IV Lasix 40 mg ev jessica 8 hours. Kidney function remained stable. Creatinine today 1.24. He denies any chest pain or pressure. 10/29/2023 Patient examined this morning at the bedside. He is sitting on the side of the bed. Patient denies chest pain or pressure. He reports mild shortness of breath this morning. He states he is unable to lay flat in bed without developing shortness of breath. He continues to have lower extremity edema although improving. Creatinine is stable today at 1.02. Potassium low at 3.2. Magnesium low at 1.5. These are both being supplemented. Per case management, patient's co-pay for Entresto would be $40.64. Discussed this with the patient who is agreeable to begin Entresto. 10/30/2023 Patient examined this morning at the bedside. Patient states he had a rough night overnight. He reports having leg cramps. He remains on IV Lasix. Kidney function is stable today. Creatinine 1.2. Patient states his breathing has improved today. He states he is able to lay flat in bed. He denies any chest pain or pressure. Patient's blood pressure is slightly elevated this morning. However his lisinopril has been discontinued in anticipation for initiation of Entresto tomorrow. 10/30 Patient is seen today in follow-up. Patient has been maintained on IV Lasix 40 mg every 8 hours. Patient has a negative fluid balance and documented weight loss. Lower extremity edema is improving. Repeat blood work reveals hemoglobin is 15.2. Potassium 3.3 and will be replaced, BUN 23, creatinine 1.2. Patient was started on Entresto this morning. Patient complains of generalized pain, no chest pain. Possible cardiac catheterization tomorrow. 10/31 Patient has been maintained on IV Lasix 40 mg every 8 hours and urinating significant amount with documented weight loss. His breathing seems to be stable at this time. Blood pressure readings remain elevated 156/92 despite increase and Entresto dose. Heart rate is running in the low 100s, pulse ox 92% on room air. Regarding cardiac catheterization, this was discussed with Dr. Raymundo and we will hold on this for now and stabilized patient's heart failure first and this can be worked up as an outpatient. PHYSICAL EXAM: VITAL SIGNS: Reviewed. GENERAL: Well-developed in no acute distress. HEENT: Head is normocephalic. Pupils are equal, round. Sclerae anicteric. Mucous membranes of the mouth are moist. Neck supple. No JVD or thyromegaly LUNGS: Respirations even and unlabored. Lungs diminished bilaterally. HEART: Irregular rate and rhythm. S1 and S2 heard. Systolic murmur noted. ABDOMEN: Soft. Nondistended. Nontender. EXTREMITIES: No clubbing or cyanosis. Peripheral pulses intact. Minimal bilateral lower extremity edema NEUROLOGIC: Awake and alert. Oriented x 3. ASSESSMENT: Acute on chronic systolic heart failure, EF 25 to 30% Cardiomyopathy, unsure if acute or chronic, awaiting records from outside faci lity Atrial fibrillation with controlled ventricular rate, duration unknown, paroxysmal versus persistent Coronary artery disease with previous stenting x 4, details unknown at this time Right bundle branch block Hypertension Hyperlipidemia Diabetes Obesity: BMI 36.6 Hypomagnesemia Hypokalemia PLAN: Continue current cardiac medications with the following changes: Increase metoprolol succinate to 100 mg daily Change IV Lasix to oral 40 mg twice daily Increase Aldactone to 50 mg daily Continue the increased dose of Entresto 49 mg / 51 mg twice daily Daily weights, accurate intake and output, and monitoring of kidney function No plan for cardiac catheterization on this admission Monitor patient overnight and most likely discharge home tomorrow Nurse practitioner note has been reviewed by physician. Signing provider agrees with the documented findings, assessment, and plan of care documented by CAMPAIGN DEVELOPER as a scribe. Objective - Vital Signs Vital signs: Vital Signs Temp 98.4 F 11/01/23 12:10 Pulse 104 H 11/01/23 12:10 Resp 18 11/01/23 12:10 BP 156/92 11/01/23 12:10 Pulse Ox 92 L 11/01/23 12:10 FiO2 Intake & Output 10/31/23 11/01/23 11/01/23 18:59 06:59 18:59 Intake Total 880 120 Output Total 1500 1025 Balance -620 -905 Weight 126.2 kg Intake: Oral 880 120 Output: Urine 1500 1025 Other: Voiding Method Toilet Toilet Urinal Urinal # Voids 1 - Labs CBC & Chem 7: 10/31/23 09:33 10/31/23 09:33 Labs: Abnormal Lab Results - Last 24 Hours (Table) 10/31/23 10/31/23 11/01/23 Range/Units 16:08 20:23 06:03 POC Glucose (mg/dL) 180 H 136 H 134 H (70-110) mg/dL 11/01/23 Range/Units 11:58 POC Glucose (mg/dL) 121 H (70-110) mg/dL
[2023-11-01 16:23] LABS: Glucose,Whole Blood 141 mg/dL (70-110)
[2023-11-01] MEDS: SPIRONOLACTONE 25 MG TAB PO STA (16:31)
[2023-11-01] MEDS: METOPROLOL SUCCINATE (ER) 50 MG TAB.ER.24H PO STA (16:31)
[2023-11-01] MEDS: FUROSEMIDE 40 MG TAB PO SCH (16:31)
[2023-11-01 19:58] LABS: Glucose,Whole Blood 225 mg/dL (70-110)
--- NOTE | 2023-11-01 20:38 | P.PN ---
Subjective Progress Note Date: 11/01/23 63 years old male with past medical history of multiple medical problems as below including history of coronary artery disease s/p 4 stents. His PCP is Dr. rodriguez , also home about 1 week ago and given some antibiotic for his congested nose but with no much relief. Patient presents because of increased leg swelling in both legs over more than a week and he thinks is because to his abdomen which looks hard. Is been complaining from shortness of breath with walking, however no orthopnea or paroxysmal nocturnal dyspnea He denies chest pain but complains from little cough and phlegm and congested nose with sneezing but no sore throat for also more than a week Patient denies change in urine or bowel habits, he has little Headache but no weakness or numbness Patient denies smoking alcohol or illicit drugs. He is hemodynamically stable. He has unremarkable CBC, BMP, liver enzymes except for mild hypokalemia and hypomagnesemia INR 1.3 Troponin -0.09 and 0.0 24 Urinalysis negative EKG showing atrial fibrillation with a rate of 86 Chest x-ray is negative proBNP is elevated 3740 Patient started on IV Lasix twice daily 10/27/2023 Patient feels improvement, his upper respiratory symptoms and coughing and headache are improving No significant dyspnea or chest pain His main problem is bilateral leg swelling, he remains on IV Lasix 80 mg 3 times daily, he is made about 1400 mL of urine output since jumpbasting armhole baster. Echocardiogram showing severely dilated right ventricle and low ejection fraction of the left ventricle 25 to 30% going on with his systolic CHF. Also his heart is controlled and he was started on Xarelto while Plavix was discontinued. Patient continued with aspirin. Patient informed with this recommendation and risk of bleeding explained for him extensively and he verbalized understanding and acceptance Blood pressure is better controlled after switching his nifedipine and to metoprolol plus Aldactone and Farxiga. TSH level was high on admission more than 10 but T4 is normal therefore we are going to recheck his thyroid function test tomorrow. 10/28/2023 Patient keep diuresing well, he peed 4 L yesterday He lost 11 pounds since admission He feels improvement Patient still has moderate bilateral leg swelling also improving Patient wants to stay in the hospital and continue diuresis. Currently on IV Lasix 40 mg 3 times a day he is on aspirin 81 mg and Xarelto added. Consult transplant case manager for Xarelto co-pay 10/29/23: Dr Gracia assumed care : Patient seen and evaluated at bedside, vitals reviewed, blood work reviewed potassium 3.2 magnesium 1.5 replaced continue p atient on diuretics receiving IV Lasix, did have episode of epistaxis 10/30/23: Patient seen and evaluated bedside, electrolytes reviewed renal function reviewed vitals reviewed patient remains on room air continue on magnesium supplementation. Patient states breathing has improved however lower extremity edema persist 10/31/23: Patient seen and evaluated at bedside, patient been admitted for congest franny heart failure, patient been treated with IV Lasix continue to monitor intake and output, plan to initiate Entresto, will need cardiac catheterization inpatient versus outpatient based on cardiology discretion. Patient placed on 2 L of oxygen 11/01/2023 Patient is seen in follow-up continues to be on IV Lasix with cardiology following and discussing possible cardiac catheterization. Patient is stable per cardiology and discussing possible outpatient cardiac catheterization. Patient reports feeling significantly improved in regards to his shortness of breath and also reports he feels he lost close to 25 pounds while being on diuresis. Patient denies chest pain or palpitations at this time. Patient continues on current medications per cardiology and discussing possible discharge planning in 24 hours. Review of systems: Constitutional: No reports of fatigue, fever, or chills Cardiovascular: No reports of chest pain or palpitations Respiratory: reports of improvements in shortness of breath GI: No reports of nausea, vomiting, or diarrhea, reports to feeling hungry : No reports of dysuria or retention Neurovascular: No reports of weakness or numbness All medications have been reviewed Physical exam: GENERAL: The patient is alert and oriented x3, not in any acute distress. Well developed, well nourished. Nasal cannula in place, obese HEENT: Pupils are round and equally reacting to light. EOMI. No scleral icterus. No pharyngeal erythema. No thyromegaly. CARDIOVASCULAR: S1 and S2 muffled PULMONARY: Diminished breath sounds bilaterally otherwise clear to auscultation. No accessory muscle use noted. ABDOMEN: Soft, obese. Nontender, nondistended, normoactive bowel sounds. No palpable organomegaly. MUSCULOSKELETAL: No joint swelling or deformity. EXTREMITIES: No cyanosis, clubbing,. 1 + bilateral pitting leg edema. Significant improvement in lower extremity swelling and NEUROLOGICAL: Gross neurological examination did not reveal any focal deficits. Assessment: * Acute on chronic systolic CHF exacerbation with increased bilateral lower extremity swelling. EF 25 to 30% * Acute hypoxemic respiratory failure from CHF * Chronic atrial fibrillation with controlled heart rate. Started on Xarelto * Coronary artery disease s/p 4 stents * Diabetes mellitus type 2 * Hypertension, uncontrolled on admission, currently improved * Chronic kidney disease stage II * Obesity with BMI of 35.7 * GI prophylaxis * DVT prophylaxis * Full code Plan: * In regards to congestive heart failure, cardiology following and has been maintained on IV Lasix. Will transition to oral Lasix recommend monitoring overnight with possible discharge planning in 24 hours. Patient is currently stable and reports to significant improvement in his shortness of breath and will be planning for outpatient cardiac catheterization. * In regards to coronary artery disease following patient will need cardiac catheterization once volume status improves, continue medical management, patient remains on Xarelto * In regards to history of atrial fibrillation continue patient on Xarelto as well as metoprolol * Diabetes mellitus HbA1c 6.5 continue Accu-Cheks ACHS continue correctional insulin monitor for hypoglycemia * Will discuss possible discharge in the next 24 hours * Due to multiple complex medical issues, prognosis is guarded The impression and plan of care has been dictated by Chanel Castellanos, Nurse Practitioner as directed. Dr. Eliazar MD I have performed a history and examination and MDM of this patient, discussed the same with the dictator, and agree with the dictator's assessment and plan as written ,documented as a scribe. Based on total visit time, I have performed more than 50% of the visit. Objective - Vital Signs Vital signs: Vital Signs Temp 98.3 F 11/01/23 04:00 Pulse 108 H 11/01/23 04:00 Resp 18 11/01/23 04:00 BP 159/110 11/01/23 04:00 Pulse Ox 96 11/01/23 04:00 FiO2 Intake & Output 10/31/23 11/01/23 11/01/23 18:59 06:59 18:59 Intake Total 880 120 Output Total 1500 1025 Balance -620 902 Weight 126.2 kg Intake: Oral 880 120 Output: Urine 1500 1025 Other: Voiding Method Toilet Urinal # Voids 1 - Labs CBC & Chem 7: 10/31/23 09:33 10/31/23 09:33 Labs: Abnormal Lab Results - Last 24 Hours (Table) 10/31/23 10/31/23 10/31/23 Range/Units 09:33 09:33 11:33 RDW 17.3 H (11.5-15.5) % Potassium 3.3 L (3.5-5.1) mmol/L Carbon Dioxide 31 H (22-30) mmol/L BUN 23 H (9-20) mg/dL Glucose 143 H (74-99) mg/dL POC Glucose (mg/dL) 120 H (70-110) mg/dL 10/31/23 10/31/23 11/01/23 Range/Units 16:08 20:23 06:03 RDW (11.5-15.5) % Potassium (3.5-5.1) mmol/L Carbon Dioxide (22-30) mmol/L BUN (9-20) mg/dL Glucose (74-99) mg/dL POC Glucose (mg/dL) 180 H 136 H 134 H (70-110) mg/dL
[2023-11-01] MEDS: POTASSIUM CHLORIDE ER 20 MEQ TAB.ER PO SCH (23:39)
[2023-11-02 06:17] LABS: Glucose,Whole Blood 144 mg/dL (70-110)
[2023-11-02 07:25] LABS: African American GFR (CKD) 69 (>60 ml/min/1.73 sqM); Anion Gap 8 mmol/L; Blood Urea Nitrogen 25 mg/dL (9-20); Calcium 8.5 mg/dL (8.4-10.2); Carbon Dioxide 28 mmol/L (22-30); Chloride 98 mmol/L (98-107); Glucose 134 mg/dL (74-99); Magnesium 1.8 mg/dL (1.6-2.3); Non-African American GFR(CKD) 59 (>60 ml/min/1.73 sqM); Potassium 3.3 mmol/L (3.5-5.1); Sodium 134 mmol/L (137-145)
[2023-11-02] MEDS: METOPROLOL SUCCINATE (ER) 50 MG TAB.ER.24H PO SCH (08:27)
[2023-11-02] MEDS: SPIRONOLACTONE 25 MG TAB PO SCH (08:28)
[2023-11-02] MEDS ORDERED: Potassium Replacement Protocol 1 EACH MISC MISCELLANE PRN (08:35)
[2023-11-02] MEDS: POTASSIUM CHLORIDE ER 20 MEQ TAB.ER PO SCH (08:40)
[2023-11-02 11:43] LABS: Glucose,Whole Blood 180 mg/dL (70-110)
[2023-11-02 15:16] VITALS: BMI 35.9
--- NOTE | 2023-11-02 15:23 | P.PN ---
Subjective Progress Note Date: 11/02/23 HISTORY OF PRESENT ILLNESS: This is a 63-year-old male with a past medical history significant for fibr illation, coronary artery disease with previous stenting, hypertension, hyperlipidemia, diabetes, congestive heart failure, and obesity. Patient follows with a fashion styling intern out of town, Dr. Whittington. However he states he has not seen him in a few years. We have been asked to see the patient in consultation for congestive heart failure. Patient examined at the bedside in the emergency room. Patient presented to the hospital with a chief complaint of increased edema. He states over the past 2 weeks he has noticed a lot of swelling in his legs and thighs. He states he usually only has swelling on the top of his feet. He denies gaining any weight recently. He states he has not been waking up at night short of breath. He does report having a nonproductive cough but states he feels as though he has a head cold currently. He denies any shortness of breath at rest but does report shortness of breath with mild exertion such as walking. He denied having any chest pain or pressure. The patient does have a history of CAD. He states he has had 4 stents placed, most recent was a few years ago. He believes these were performed at [facility]. Patient states he has been taking aspirin and Plavix on an outpatient basis. He also has a history of atrial fibrillation. He states to his knowledge he was last in atrial fibrillation about 3 years ago. However he denies feeling any pa lpitations or flip-flopping and is unsure if he has been in atrial fibrillation or not recently. At the time of examination, bedside telemetry reveals atrial fibrillation with controlled ventricular rate. Patient states he has been anticoagulated with Xarelto. He denies any history of CVA/TIA. DIAGNOSTICS: - EKG reveals atrial fibrillation with right bundle branch block. - Chest xray negative for acute process. - Laboratory data: WBC 8.1. Hemoglobin 15.4. Platelet count 248. Sodium 142. Potassium 3.1. BUN 16. Creatinine 1.08. Troponin negative x 3. proBNP 3740. - Current home cardiac medications include lisinopril 40 mg daily, nifedipine 90 mg daily, Lasix 40 mg daily, Plavix 75 mg daily, Lipitor 40 mg daily, aspirin 81 mg daily. Patient also reports taking Xarelto however this is not on his home medication list.. 10/27/2023 Patient examined this morning at the bedside. Patient denies chest pain or pressure. Currently denies SOB. He continues to have lower extremity edema. He remains on IV lasix. Echocardiogram completed revealing severely impaired LV function with an EF between 25 and 30% with global hypokinesia, mild to moderate MR and mild to moderate tricuspid regurgitation. Patient is unsure if he has a history of cardiomyopathy. Vital signs are stable. Records received from [facility]. Patient did undergo angioplasty without stenting of the RCA in 2018. Most recent from [facility] was in 2019 and patients EF was normal at that time. Still awaiting records from [facility]. 10/28/2023 Patient examined this morning. He is sitting up in the chair. He continues to report shortness of breath although improving. He remains on IV Lasix 40 mg ev jessica 8 hours. Kidney function remained stable. Creatinine today 1.24. He denies any chest pain or pressure. 10/29/2023 Patient examined this morning at the bedside. He is sitting on the side of the bed. Patient denies chest pain or pressure. He reports mild shortness of breath this morning. He states he is unable to lay flat in bed without developing shortness of breath. He continues to have lower extremity edema although improving. Creatinine is stable today at 1.02. Potassium low at 3.2. Magnesium low at 1.5. These are both being supplemented. Per case management, patient's co-pay for Entresto would be $40.64. Discussed this with the patient who is agreeable to begin Entresto. 10/30/2023 Patient examined this morning at the bedside. Patient states he had a rough night overnight. He reports having leg cramps. He remains on IV Lasix. Kidney function is stable today. Creatinine 1.2. Patient states his breathing has improved today. He states he is able to lay flat in bed. He denies any chest pain or pressure. Patient's blood pressure is slightly elevated this morning. However his lisinopril has been discontinued in anticipation for initiation of Entresto tomorrow. 10/30 Patient is seen today in follow-up. Patient has been maintained on IV Lasix 40 mg every 8 hours. Patient has a negative fluid balance and documented weight loss. Lower extremity edema is improving. Repeat blood work reveals hemoglobin is 15.2. Potassium 3.3 and will be replaced, BUN 23, creatinine 1.2. Patient was started on Entresto this morning. Patient complains of generalized pain, no chest pain. Possible cardiac catheterization tomorrow. 10/31 Patient has been maintained on IV Lasix 40 mg every 8 hours and urinating significant amount with documented weight loss. His breathing seems to be stable at this time. Blood pressure readings remain elevated 156/92 despite increase and Entresto dose. Heart rate is running in the low 100s, pulse ox 92% on room air. Regarding cardiac catheterization, this was discussed with Dr. Raymundo and we will hold on this for now and stabilized patient's heart failure first and this can be worked up as an outpatient. 11/01 Patient states that he is feeling better but not back to his baseline. Blood pressure 137/81, heart rate 91, pulse ox 93% on room air. Repeat blood work reveals sodium 134, potassium 3.3, BUN 25 creatinine 1.27. Yesterday, patient was transition from IV Lasix to oral and Aldactone and metoprolol were increased . He has been continued on the increased dose of Entresto PHYSICAL EXAM: VITAL SIGNS: Reviewed. GENERAL: Well-developed in no acute distress. HEENT: Head is normocephalic. Pupils are equal, round. Sclerae anicteric. Mucous membranes of the mouth are moist. Neck supple. No JVD or thyromegaly LUNGS: Respirations even and unlabored. Lungs diminished bilaterally. HEART: Irregular rate and rhythm. S1 and S2 heard. Systolic murmur noted. ABDOMEN: Soft. Nondistended. Nontender. EXTREMITIES: No clubbing or cyanosis. Peripheral pulses intact. Minimal bilateral lower extremity edema NEUROLOGIC: Awake and alert. Oriented x 3. ASSESSMENT: Acute on chronic systolic heart failure, EF 25 to 30% Cardiomyopathy, unsure if acute or chronic, awaiting records from outside facility Atrial fibrillation with controlled ventricular rate, duration unknown, paroxysmal versus persistent Coronary artery disease with previous stenting x 4, details unknown at this time Right bundle branch block Hypertension Hyperlipidemia Diabetes Obesity: BMI 36.6 Hypomagnesemia Hypokalemia PLAN: Continue current cardiac medications Continue metoprolol succinate 100 mg daily Continue Lasix oral 40 mg twice daily Continue Aldactone 50 mg daily Continue Entresto 49 mg / 51 mg twice daily Daily weights, accurate intake and output, and monitoring of kidney function No plan for cardiac catheterization on this admission Monitor patient overnight and most likely discharge home tomorrow Nurse practitioner note has been reviewed by physician. Signing provider agrees with the documented findings, assessment, and plan of care documented by INVOICE CLERK as a scribe. Objective - Vital Signs Vital signs: Vital Signs Temp 99.3 F 11/02/23 08:00 Pulse 91 11/02/23 12:00 Resp 16 11/02/23 12:00 BP 137/81 11/02/23 12:00 Pulse Ox 93 L 11/02/23 12:00 FiO2 Intake & Output 11/01/23 11/02/23 11/02/23 18:59 06:59 18:59 Intake Total 598 598 Output Total 700 750 Balance -102 -152 Weight 126.9 kg Intake: Oral 598 598 Output: Urine 700 750 Other: Voiding Method Toilet Toilet Urinal Urinal - Labs CBC & Chem 7: 10/31/23 09:33 11/02/23 06:15 Labs: Abnormal Lab Results - Last 24 Hours (Table) 11/01/23 11/01/23 11/01/23 Range/Units 16:22 19:57 22:54 Sodium (137-145) mmol/L Potassium 3.3 L (3.5-5.1) mmol/L BUN (9-20) mg/dL Creatinine (0.66-1.25) mg/dL Glucose (74-99) mg/dL POC Glucose (mg/dL) 141 H 225 H (70-110) mg/dL 11/02/23 11/02/23 11/02/23 Range/Units 06:14 06:15 11:41 Sodium 134 L (137-145) mmol/L Potassium 3.3 L (3.5-5.1) mmol/L BUN 25 H (9-20) mg/dL Creatinine 1.27 H (0.66-1.25) mg/dL Glucose 134 H (74-99) mg/dL POC Glucose (mg/dL) 144 H 180 H (70-110) mg/dL
[2023-11-02 16:30] LABS: Glucose,Whole Blood 144 mg/dL (70-110)
[2023-11-02 20:16] LABS: Glucose,Whole Blood 171 mg/dL (70-110)
--- NOTE | 2023-11-03 06:00 | P.PN ---
Subjective Progress Note Date: 11/02/23 63 years old male with past medical history of multiple medical problems as below including history of coronary artery disease s/p 4 stents. His PCP is Dr. rodriguez , also home about 1 week ago and given some antibiotic for his congested nose but with no much relief. Patient presents because of increased leg swelling in both legs over more than a week and he thinks is because to his abdomen which looks hard. Is been complaining from shortness of breath with walking, however no orthopnea or paroxysmal nocturnal dyspnea He denies chest pain but complains from little cough and phlegm and congested nose with sneezing but no sore throat for also more than a week Patient denies change in urine or bowel habits, he has little Headache but no weakness or numbness Patient denies smoking alcohol or illicit drugs. He is hemodynamically stable. 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 Echocardiogram showing severely dilated right ventricle and low ejection fraction of the left ventricle 25 to 30% going on with his systolic CHF. Also his heart is controlled and he was started on Xarelto while Plavix was discontinued. Patient continued with aspirin. Patient informed with this recommendation and risk of bleeding explained for him extensively and he verbalized understanding and acceptance Blood pressure is better controlled after switching his nifedipine and to metoprolol plus Aldactone and Farxiga. TSH level was high on admission more than 10 but T4 is normal therefore we are going to recheck his thyroid function test tomorrow. 10/28/2023 Patient keep diuresing well, he peed 4 L yesterday He lost 11 pounds since admission He feels improvement Patient still has moderate bilateral leg swelling also improving Patient wants to stay in the hospital and continue diuresis. Currently on IV Lasix 40 mg 3 times a day he is on aspirin 81 mg and Xarelto added. Consult case preparer and liner for Xarelto co-pay 10/29/23: Dr Gracia assumed care : Patient seen and evaluated at bedside, vitals reviewed, blood work reviewed potassium 3.2 magnesium 1.5 replaced continue p atient on diuretics receiving IV Lasix, did have episode of epistaxis 10/30/23: Patient seen and evaluated bedside, electrolytes reviewed renal function reviewed vitals reviewed patient remains on room air continue on magnesium supplementation. Patient states breathing has improved however lower extremity edema persist 10/31/23: Patient seen and evaluated at bedside, patient been admitted for congest franny heart failure, patient been treated with IV Lasix continue to monitor intake and output, plan to initiate Entresto, will need cardiac catheterization inpatient versus outpatient based on cardiology discretion. Patient placed on 2 L of oxygen 11/01/2023 Patient is seen in follow-up continues to be on IV Lasix with cardiology following and discussing possible cardiac catheterization. Patient is stable per cardiology and discussing possible outpatient cardiac catheterization. Patient reports feeling significantly improved in regards to his shortness of breath and also reports he feels he lost close to 25 pounds while being on diuresis. Patient denies chest pain or palpitations at this time. Patient continues on current medications per cardiology and discussing possible discharge planning in 24 hours. 11/02/2023 Patient is seen and evaluated in follow-up today being followed by cardiology. Patient has been transition to oral Lasix along with Aldactone. Plan is for outpatient catheterization. Cardiology following making multiple adjustments to medications recommend monitoring overnight and likely discharge planning in the next 24 hours. Patient is afebrile reports some shortness of breath although is improved and denies chest pain or palpitations at this time. Patient has been tolerating diet and will continue current insulin regimen. Encouraged to increase activity as tolerated. Review of systems: Constitutional: No reports of fatigue, fever, or chills Cardiovascular: No reports of chest pain or palpitations Respiratory: reports of improvements in shortness of breath GI: No reports of nausea, vomiting, or diarrhea : No reports of dysuria or retention Neurovascular: No reports of weakness or numbness All medications have been reviewed Physical exam: GENERAL: The patient is alert and oriented x3, not in any acute distress. Well developed, well nourished. Nasal cannula in place, obese HEENT: Pupils are round and equally reacting to light. EOMI. No scleral icterus. No pharyngeal erythema. No thyromegaly. CARDIOVASCULAR: S1 and S2 muffled PULMONARY: Diminished breath sounds bilaterally otherwise clear to auscultation. No accessory muscle use noted. ABDOMEN: Soft, obese. Nontender, nondistended, normoactive bowel sounds. No palpable organomegaly. MUSCULOSKELETAL: No joint swelling or deformity. EXTREMITIES: No cyanosis, clubbing,. 1 + bilateral pitting leg edema. Significant improvement in lower extremity swelling NEUROLOGICAL: Gross neurological examination did not reveal any focal deficits. Assessment: * Acute on chronic systolic CHF exacerbation with increased bilateral lower extremity swelling. EF 25 to 30% * Acute hypoxemic respiratory failure from CHF * Chronic atrial fibrillation with controlled heart rate. Started on Xarelto * Coronary artery disease s/p 4 stents * Diabetes mellitus type 2 * Hypertension, uncontrolled on admission, currently improved * Chronic kidney disease stage II * Obesity with BMI of 35.7 * GI prophylaxis * DVT prophylaxis * Full code Plan: * In regards to congestive heart failure, cardiology following and has been maintained on IV Lasix. Patient has been transitioned to oral Lasix recommend monitoring overnight with possible discharge planning in 24 hours. Patient is currently stable and reports to significant improvement in his shortness of breath and will be planning for outpatient cardiac catheterization. * In regards to coronary artery disease following patient will need cardiac catheterization once volume status improves, continue medical management, patient remains on Xarelto * In regards to history of atrial fibrillation continue patient on Xarelto as well as metoprolol * Diabetes mellitus HbA1c 6.5 continue Accu-Cheks ACHS continue correctional insulin monitor for hypoglycemia * Will discuss possible discharge in the next 24 hours * Due to multiple complex medical issues, prognosis is guarded The impression and plan of care has been dictated by Chanel Castellanos, Nurse Practitioner as directed. Dr. Eliazar MD I have performed a history and examination and MDM of this patient, discussed the same with the dictator, and agree with the dictator's assessment and plan as written ,documented as a scribe. Based on total visit time, I have performed more than 50% of the visit. Social work reports does not want may for Objective - Vital Signs Vital signs: Vital Signs Temp 99.3 F 11/02/23 08:00 Pulse 95 11/02/23 08:00 Resp 16 11/02/23 08:00 BP 129/91 11/02/23 08:00 Pulse Ox 93 L 11/02/23 08:00 FiO2 Intake & Output 11/01/23 11/02/23 11/02/23 18:59 06:59 18:59 Intake Total 598 118 Output Total 700 750 Balance -102 -632 Weight 126.9 kg Intake: Oral 598 118 Output: Urine 700 750 Other: Voiding Method Toilet Urinal - Labs CBC & Chem 7: 10/31/23 09:33 11/02/23 20:27 Labs: Abnormal Lab Results - Last 24 Hours (Table) 11/01/23 11/01/23 11/01/23 Range/Units 11:58 16:22 19:57 Sodium (137-145) mmol/L Potassium (3.5-5.1) mmol/L BUN (9-20) mg/dL Creatinine (0.66-1.25) mg/dL Glucose (74-99) mg/dL POC Glucose (mg/dL) 121 H 141 H 225 H (70-110) mg/dL 11/01/23 11/02/23 11/02/23 Range/Units 22:54 06:14 06:15 Sodium 134 L (137-145) mmol/L Potassium 3.3 L 3.3 L (3.5-5.1) mmol/L BUN 25 H (9-20) mg/dL Creatinine 1.27 H (0.66-1.25) mg/dL Glucose 134 H (74-99) mg/dL POC Glucose (mg/dL) 144 H (70-110) mg/dL
[2023-11-03 06:11] LABS: Glucose,Whole Blood 152 mg/dL (70-110)
[2023-11-03 08:19] VITALS: RESP 16; TEMP 99.7
[2023-11-03 11:14] LABS: Glucose,Whole Blood 175 mg/dL (70-110)
[2023-11-03 11:42] LABS: Anisocytosis Slight; Basophils # (A) 0.1 k/uL (0-0.2); Basophils % (A) 1 %; Eosinophils # (A) 0.1 k/uL (0-0.7); Eosinophils % (A) 1 %; HCT 42.9 % (39.0-53.0); HGB 13.3 gm/dL (13.0-17.5); Hypochromasia Slight; Lymphocytes # (A) 0.8 k/uL (1.0-4.8); Lymphocytes % (A) 8 %; MCH 27.5 pg (25.0-35.0); MCHC 31.1 g/dL (31.0-37.0); MCV 88.6 fL (80.0-100.0); Monocytes # (A) 1.2 k/uL (0-1.0); Monocytes % (A) 12 %; Neutrophils # (A) 7.8 k/uL (1.3-7.7); Neutrophils % (A) 77 %; Platelet Count 203 k/uL (150-450); RBC 4.84 m/uL (4.30-5.90); RDW 17.4 % (11.5-15.5); WBC 10.3 k/uL (3.8-10.6)
[2023-11-03 12:00] LABS: African American GFR (CKD) 54 (>60 ml/min/1.73 sqM); Anion Gap 7 mmol/L; Blood Urea Nitrogen 31 mg/dL (9-20); Calcium 8.4 mg/dL (8.4-10.2); Carbon Dioxide 30 mmol/L (22-30); Chloride 97 mmol/L (98-107); Glucose 172 mg/dL (74-99); Non-African American GFR(CKD) 47 (>60 ml/min/1.73 sqM); Potassium 3.8 mmol/L (3.5-5.1); Sodium 134 mmol/L (137-145)
[2023-11-03 12:11] VITALS: BP 133/89; PULSE 97
[2023-11-03] MEDS: ONDANSETRON 4 MG/2 ML VIAL IVP PRN (12:27)
[2023-11-03] MEDS: SPIRONOLACTONE 25 MG TAB PO STA (12:27)
--- NOTE | 2023-11-03 13:52 | P.PN ---
Subjective Progress Note Date: 11/03/23 HISTORY OF PRESENT ILLNESS: This is a 63-year-old male with a past medical history significant for fibr illation, coronary artery disease with previous stenting, hypertension, hyperlipidemia, diabetes, congestive heart failure, and obesity. Patient follows with a director of field sales out of town, Dr. Whittington. However he states he has not seen him in a few years. We have been asked to see the patient in consultation for congestive heart failure. Patient examined at the bedside in the emergency room. Patient presented to the hospital with a chief complaint of increased edema. He states over the past 2 weeks he has noticed a lot of swelling in his legs and thighs. He states he usually only has swelling on the top of his feet. He denies gaining any weight recently. He states he has not been waking up at night short of breath. He does report having a nonproductive cough but states he feels as though he has a head cold currently. He denies any shortness of breath at rest but does report shortness of breath with mild exertion such as walking. He denied having any chest pain or pressure. The patient does have a history of CAD. He states he has had 4 stents placed, most recent was a few years ago. He believes these were performed at [facility]. Patient states he has been taking aspirin and Plavix on an outpatient basis. He also has a history of atrial fibrillation. He states to his knowledge he was last in atrial fibrillation about 3 years ago. However he denies feeling any pa lpitations or flip-flopping and is unsure if he has been in atrial fibrillation or not recently. At the time of examination, bedside telemetry reveals atrial fibrillation with controlled ventricular rate. Patient states he has been anticoagulated with Xarelto. He denies any history of CVA/TIA. DIAGNOSTICS: - EKG reveals atrial fibrillation with right bundle branch block. - Chest xray negative for acute process. - Laboratory data: WBC 8.1. Hemoglobin 15.4. Platelet count 248. Sodium 142. Potassium 3.1. BUN 16. Creatinine 1.08. Troponin negative x 3. proBNP 3740. - Current home cardiac medications include lisinopril 40 mg daily, nifedipine 90 mg daily, Lasix 40 mg daily, Plavix 75 mg daily, Lipitor 40 mg daily, aspirin 81 mg daily. Patient also reports taking Xarelto however this is not on his home medication list.. 10/27/2023 Patient examined this morning at the bedside. Patient denies chest pain or pressure. Currently denies SOB. He continues to have lower extremity edema. He remains on IV lasix. Echocardiogram completed revealing severely impaired LV function with an EF between 25 and 30% with global hypokinesia, mild to moderate MR and mild to moderate tricuspid regurgitation. Patient is unsure if he has a history of cardiomyopathy. Vital signs are stable. Records received from [facility]. Patient did undergo angioplasty without stenting of the RCA in 2018. Most recent from [facility] was in 2019 and patients EF was normal at that time. Still awaiting records from [facility]. 10/28/2023 Patient examined this morning. He is sitting up in the chair. He continues to report shortness of breath although improving. He remains on IV Lasix 40 mg ev jessica 8 hours. Kidney function remained stable. Creatinine today 1.24. He denies any chest pain or pressure. 10/29/2023 Patient examined this morning at the bedside. He is sitting on the side of the bed. Patient denies chest pain or pressure. He reports mild shortness of breath this morning. He states he is unable to lay flat in bed without developing shortness of breath. He continues to have lower extremity edema although improving. Creatinine is stable today at 1.02. Potassium low at 3.2. Magnesium low at 1.5. These are both being supplemented. Per case management, patient's co-pay for Entresto would be $40.64. Discussed this with the patient who is agreeable to begin Entresto. 10/30/2023 Patient examined this morning at the bedside. Patient states he had a rough night overnight. He reports having leg cramps. He remains on IV Lasix. Kidney function is stable today. Creatinine 1.2. Patient states his breathing has improved today. He states he is able to lay flat in bed. He denies any chest pain or pressure. Patient's blood pressure is slightly elevated this morning. However his lisinopril has been discontinued in anticipation for initiation of Entresto tomorrow. 10/30 Patient is seen today in follow-up. Patient has been maintained on IV Lasix 40 mg every 8 hours. Patient has a negative fluid balance and documented weight loss. Lower extremity edema is improving. Repeat blood work reveals hemoglobin is 15.2. Potassium 3.3 and will be replaced, BUN 23, creatinine 1.2. Patient was started on Entresto this morning. Patient complains of generalized pain, no chest pain. Possible cardiac catheterization tomorrow. 10/31 Patient has been maintained on IV Lasix 40 mg every 8 hours and urinating significant amount with documented weight loss. His breathing seems to be stable at this time. Blood pressure readings remain elevated 156/92 despite increase and Entresto dose. Heart rate is running in the low 100s, pulse ox 92% on room air. Regarding cardiac catheterization, this was discussed with Dr. Raymundo and we will hold on this for now and stabilized patient's heart failure first and this can be worked up as an outpatient. 11/01 Patient states that he is feeling better but not back to his baseline. Blood pressure 137/81, heart rate 91, pulse ox 93% on room air. Repeat blood work reveals sodium 134, potassium 3.3, BUN 25 creatinine 1.27. Yesterday, patient was transition from IV Lasix to oral and Aldactone and metoprolol were increased . He has been continued on the increased dose of Entresto 11/02 Patient states he had an episode of vomiting and nausea this morning. No abdominal pain. No lower extremity edema. No shortness of breath. Blood pressure 133/89, heart rate 97, pulse ox 90 to 93% on room air. Repeat blood work reveals potassium 3.8, BUN 31 and creatinine 1.54. PHYSICAL EXAM: VITAL SIGNS: Reviewed. GENERAL: Well-developed in no acute distress. HEENT: Head is normocephalic. Pupils are equal, round. Sclerae anicteric. Mucous membranes of the mouth are moist. Neck supple. No JVD or thyromegaly LUNGS: Respirations even and unlabored. Lungs diminished bilaterally. HEART: Irregular rate and rhythm. S1 and S2 heard. Systolic murmur noted. ABDOMEN: Soft. Nondistended. Nontender. EXTREMITIES: No clubbing or cyanosis. Peripheral pulses intact. Minimal bilateral lower extremity edema NEUROLOGIC: Awake and alert. Oriented x 3. ASSESSMENT: Acute on chronic systolic heart failure, EF 25 to 30% Cardiomyopathy, unsure if acute or chronic, awaiting records from outside facility Atrial fibrillation with controlled ventricular rate, duration unknown, paroxysmal versus persistent Coronary artery disease with previous stenting x 4, details unknown at this time Right bundle branch block Hypertension Hyperlipidemia Diabetes Obesity: BMI 36.6 Hypomagnesemia Hypokalemia PLAN: Continue current cardiac medications Continue metoprolol succinate 100 mg daily Continue Lasix oral 40 mg decrease frequency to once daily Increase Aldactone to 100 mg daily Continue Entresto 49 mg / 51 mg twice daily Patient is cleared for discharge from cardiology and may follow-up in the office with Dr. Cornejo in 1 week. Nurse practitioner note has been reviewed by physician. Signing provider agrees with the documented findings, assessment, and plan of care documented by [employer]SULT[employer] as a scribe. Objective - Vital Signs Vital signs: Vital Signs Temp 99.7 F H 11/03/23 08:00 Pulse 97 11/03/23 11:57 Resp 16 11/03/23 11:57 BP 133/89 11/03/23 11:57 Pulse Ox 90 L 11/03/23 11:57 FiO2 Intake & Output 11/02/23 11/03/23 11/03/23 18:59 06:59 18:59 Intake Total 598 0 118 Output Total 1100 300 Balance -502 -300 118 Weight 126.9 kg 126.7 kg Intake: Oral 598 0 118 Output: Urine 1100 300 Other: Voiding Method Toilet Toilet Urinal Urinal - Labs CBC & Chem 7: 11/03/23 11:21 11/03/23 11:21 Labs: Abnormal Lab Results - Last 24 Hours (Table) 11/02/23 11/02/23 11/03/23 Range/Units 16:28 20:14 06:07 RDW (11.5-15.5) % Neutrophils # (1.3-7.7) k/uL Lymphocytes # (1.0-4.8) k/uL Monocytes # (0-1.0) k/uL Sodium (137-145) mmol/L Chloride (98-107) mmol/L BUN (9-20) mg/dL Creatinine (0.66-1.25) mg/dL Glucose (74-99) mg/dL POC Glucose (mg/dL) 144 H 171 H 152 H (70-110) mg/dL 11/03/23 11/03/23 11/03/23 Range/Units 11:12 11:21 11:21 RDW 17.4 H (11.5-15.5) % Neutrophils # 7.8 H (1.3-7.7) k/uL Lymphocytes # 0.8 L (1.0-4.8) k/uL Monocytes # 1.2 H (0-1.0) k/uL Sodium 134 L (137-145) mmol/L Chloride 97 L (98-107) mmol/L BUN 31 H (9-20) mg/dL Creatinine 1.54 H (0.66-1.25) mg/dL Glucose 172 H (74-99) mg/dL POC Glucose (mg/dL) 175 H (70-110) mg/dL
[2023-11-04] MEDS ORDERED: FUROSEMIDE 40 MG TAB PO SCH (09:00)
[2023-11-04] MEDS ORDERED: SPIRONOLACTONE 25 MG TAB PO SCH (09:00)
--- NOTE | 2023-11-07 06:59 | P.DS ---
Providers Date of admission: 10/26/23 02:46 Expected date of discharge: 11/03/23 Attending physician: Jacky Borrego Consults: 10/26/23 02:45 Consult Physician Routine Consulting Provider: [facility] Consult Reason/Comments: chf, afib Do you want consulting provider notified?: Yes Primary care physician: Stated None Hospital Course: Final diagnosis Acute on chronic systolic CHF exacerbation with increased bilateral lower extremity swelling. EF 25 to 30% Acute hypoxemic respiratory failure from CHF Chronic atrial fibrillation with controlled heart rate. Started on Xarelto Coronary artery disease s/p 4 stents Diabetes mellitus type 2 Hypertension, uncontrolled on admission, currently improved Chronic kidney disease stage II Obesity with BMI of 35.7 GI prophylaxis DVT prophylaxis Full code Discharge disposition Patient is being discharged in a stable condition with guarded prognosis to home. Patient will follow-up with his primary care provider in the outpatient setting upon discharge. Patient is to continue with current medications and close outpatient follow-up with cardiology as scheduled. Total time taken is greater than 35 minutes. Hospital course This is a 63-year-old male who was recently admitted with increased shortness of breath with bilateral lower extremity swelling being closely monitored. Patient noted to have CHF exacerbation with significant history of coronary artery disease. Patient blood pressures were uncontrolled on admission and a history with chronic kidney disease. Patient maintained on diuresis improving a nd will transition to oral. Patient to follow-up with cardiology closely on discharge. Please refer to cardiology notes for further HPI. Currently no reports of chest pain, shortness of breath, or palpitations. Patient is afebrile. No reports of nausea or vomiting and patient is tolerating diet. Patient will be discharged home today. Guarded prognosis and high risk for readmissions given patient's significant comorbidities Physical exam: Gen: This is a 63-year-old male who is awake, alert and oriented x 3, well- developed, well-nourished, elderly, obese HEENT: Head is atraumatic, normocephalic. Pupils equal, round. Sclerae is anicteric. NECK: Supple. No JVD. No lymphadenopathy. No thyromegaly. LUNGS: Diminished breath sounds bilaterally otherwise clear to auscultation. No wheezes or rhonchi. No intercostal retractions. HEART: S1, S2 are muffled ABDOMEN: Soft. Bowel sounds are present. No masses. No tenderness. EXTREMITIES: No pedal edema. No calf tenderness. NEUROLOGICAL: Patient is awake, alert and oriented x3. Cranial nerves 2 through 12 are grossly intact. Please refer to medication reconciliation sheet for a list of medications. The impression and plan of care has been dictated by Chanel Castellanos, Nurse Practitioner as directed. Dr. Eliazar MD I have performed a history and examination and MDM of this patient, discussed the same with the dictator, and agree with the dictator's assessment and plan as written ,documented as a scribe. Based on total visit time, I have performed more than 50% of the visit. Patient Condition at Discharge: Stable Plan - Discharge Summary Discharge Rx Participant: No New Discharge Prescriptions: New Dapagliflozin Propanediol [Farxiga] 10 mg PO DAILY #30 tab Magnesium Oxide [Mag-Ox] 400 mg PO TID #90 tab Metoprolol Succinate (ER) [Toprol XL] 100 mg PO DAILY 30 Days #60 tab Spironolactone [Aldactone] 100 mg PO DAILY 30 Days #30 tab Rivaroxaban [Xarelto] 20 mg PO W/SUPPER #30 tab Sacubitril/Valsartan [Entresto 24 mg-26 mg Tablet] 1 each PO BID #60 tablet Furosemide [Lasix] 40 mg PO DAILY tab Ondansetron Odt [Zofran Odt] 4 mg PO Q8HR PRN #20 tab PRN Reason: Nausea Continue Atorvastatin [Lipitor] 40 mg PO DAILY Insulin Aspart [NovoLOG Flexpen] 20 units SQ AC-TID Thiamine [Vitamin B-1] 100 mg PO DAILY Ergocalciferol [Vitamin D2 (1250 Mcg = 64773 Iu)] 1,250 mcg PO MO Potassium Chloride ER [K-Dur 10] 10 meq PO DAILY Aspirin EC [Ecotrin Low Dose] 81 mg PO DAILY Discontinued NIFEdipine [Adalat CC] 90 mg PO DAILY Clopidogrel [Plavix] 75 mg PO DAILY lisinopriL [Zestril] 40 mg PO DAILY Furosemide [Lasix] 40 mg PO DAILY Insulin Glargine,Hum.rec.anlog [Basaglar Kwikpen U-100] 20 unit SQ DAILY Discharge Medication List Atorvastatin [Lipitor] 40 mg PO DAILY 07/19/22 [History] Insulin Aspart [NovoLOG Flexpen] 20 units SQ AC-TID 07/19/22 [History] Aspirin EC [Ecotrin Low Dose] 81 mg PO DAILY 10/26/23 [History] Ergocalciferol [Vitamin D2 (1250 Mcg = 01436 Iu)] 1,250 mcg PO MO 10/26/23 [History] Potassium Chloride ER [K-Dur 10] 10 meq PO DAILY 10/26/23 [History] Rivaroxaban [Xarelto] 20 mg PO W/SUPPER #30 tab 10/26/23 [Rx] Thiamine [Vitamin B-1] 100 mg PO DAILY 10/26/23 [History] Sacubitril/Valsartan [Entresto 24 mg-26 mg Tablet] 1 each PO BID #60 tablet 10/28/23 [Rx] Dapagliflozin Propanediol [Farxiga] 10 mg PO DAILY #30 tab 11/02/23 [Rx] Magnesium Oxide [Mag-Ox] 400 mg PO TID #90 tab 11/02/23 [Rx] Metoprolol Succinate (ER) [Toprol XL] 100 mg PO DAILY 30 Days #60 tab 11/02/23 [Rx] Furosemide [Lasix] 40 mg PO DAILY tab 11/03/23 [Rx] Ondansetron Odt [Zofran Odt] 4 mg PO Q8HR PRN #20 tab 11/03/23 [Rx] Spironolactone [Aldactone] 100 mg PO DAILY 30 Days #30 tab 11/03/23 [Rx] Follow up Appointment(s)/Referral(s): Manish Cornejo MD [STAFF PHYSICIAN] - 1 Week (office will call with an appt.) Nonstaff,Physician [REFERRING] - 1-2 days Activity/Diet/Wound Care/Special Instructions: Activity limited until follow-up Follow-up with primary care provider on discharge Follow-up with cardiology outpatient for further testing including cardiac catheterization Continue taking medications as prescribed Continue to monitor blood sugars and keep a diary of all readings for primary care follow-up. Continue to hold long-acting insulin for now unless blood sugars are becoming more uncontrolled Hold insulin if blood sugars are 100 or less Continue heart healthy diabetic diet Discharge Disposition: HOME SELF-CARE
== END 2023-11-03 15:18 | disposition home or self-care (01) | DRG 291 ==
LOC: EC 23:27 → 3SCARD 10-26 02:46
PROVIDERS: ADMIT Hospitalist; ATTEND Hospitalist
DX: I13.0 Hypertensive heart and chronic kidney disease with heart failure and stage 1 through stage 4 chronic kidney disease, or unspecified chronic kidney disease (principal); I50.23 Acute on chronic systolic (congestive) heart failure; J96.01 Acute respiratory failure with hypoxia; I48.20 Chronic atrial fibrillation, unspecified; I42.9 Cardiomyopathy, unspecified; E11.22 Type 2 diabetes mellitus with diabetic chronic kidney disease; E66.9 Obesity, unspecified; Z68.36 Body mass index [BMI] 36.0-36.9, adult; I08.1 Rheumatic disorders of both mitral and tricuspid valves; N18.2 Chronic kidney disease, stage 2 (mild); E78.5 Hyperlipidemia, unspecified; E83.42 Hypomagnesemia; I45.10 Unspecified right bundle-branch block; J06.9 Acute upper respiratory infection, unspecified; E87.6 Hypokalemia; I25.10 Atherosclerotic heart disease of native coronary artery without angina pectoris; R04.0 Epistaxis; Z79.82 Long term (current) use of aspirin; Z79.02 Long term (current) use of antithrombotics/antiplatelets; Z79.4 Long term (current) use of insulin; Z79.899 Other long term (current) drug therapy; Z71.3 Dietary counseling and surveillance; Z95.5 Presence of coronary angioplasty implant and graft; Z88.5 Allergy status to narcotic agent; Z88.1 Allergy status to other antibiotic agents
CPT/HCPCS: 36415; 71046; 80048; 80053; 81001; 83036; 83735; 83880; 84132; 84439; 84443; 84484; 85025; 85027; 85610; 85730; 87636; 93005; 93306; 94760; 96365; 96375; 96376; 99285